=== PATIENT | female | born 1940 | race Caucasian/White ===

== ENCOUNTER 2017-03-06 10:18 | Observation (INO) | payer MEDICARE, BC ==
--- OUTSIDE RECORDS SUMMARY | 2017-03-06 10:22 | XMS REPORT | Continuity of Care Document ---
:1940 Author Organization [facility] [place] [address] Care Team Providers Name Role Phone Provider, Not In System Primary Care Provider Unavailable Source Comments This disclosure is being made pursuant to the [employer] program and maynot contain all information available regarding this patient.[facility] Active Allergies and Adverse Reactions Allergen Noted Date Severity Reactions Comments Pcn 12/19/2013 Low Rash Sulfa Antibiotics 12/19/2013 Low Rash Current Medications Be aware that medications may not be up to date as of this document. Alwaysverify current medications with the patient. Prescription Sig. Disp. Refills Start Date End Date Status atenolol (TENORMIN) Take 100 mg by Active 100 MG tablet mouth daily. Calcium Take by mouth. Active Carb-Cholecalciferol 500-200 MG-UNIT TABS escitalopram (LEXAPRO) Take 20 mg by Active 20 MG tablet mouth daily. irbesartan (AVAPRO) Take 150 mg by Active 150 MG tablet mouth nightly. Multiple Take by mouth. Active Vitamins-Minerals (ONE-A-DAY 50 PLUS PO) oxybutynin (DITROPAN) Take 5 mg by Active 5 MG tablet mouth daily. pantoprazole Take 40 mg by Active (PROTONIX) 40 MG mouth daily. tablet traZODone (DESYREL) 50 Take 150 mg by Active MG tablet mouth nightly. traZODone (DESYREL) 50 Take 50 mg by Active MG tablet mouth 2 (two) times daily. triamterene-hydrochlor Take 1 tablet by Active othiazide (MAXZIDE-25) mouth daily. 37.5-25 MG per tablet hydrOXYzine (VISTARIL) Take 1 capsule by 30 capsule 0 12/19/2013 Active 50 MG capsule mouth 3 (three) times daily as needed for Itching. Active Problems Not on file Social History Tobacco Use Types Packs/Day Years Used Date Never Smoker Smokeless Tobacco: Never Used Alcohol Use Drinks/Week oz/Week Comments No Last Filed Vital Signs Vital Sign Reading Time Taken Blood Pressure 110/84 12/19/2013 1:53 PM CDT Pulse 78 12/19/2013 1:53 PM CDT Temperature 37.2 C (99 F) 12/19/2013 1:53 PM CDT Respiratory Rate 18 12/19/2013 1:53 PM CDT Height - - Weight - - Body Mass Index - - Oxygen Saturation 95% 12/19/2013 1:53 PM CDT Plan of Care Health Maintenance Due Date Last Done Comments Tetanus/Pertussis (1 - Tdap) 1960 Mammogram 1981 Colonoscopy 1991 Well Adult Visit 1991 Zoster Vaccine 60+ 2001 Bone Density 2006 Pneumococcal Low/Medium Risk 65+ (1 of 2 - PCV13) 2006 Retired-INFLUENZA VACCINE 04/18/2016 Results from Last 3 Months Not on file Insurance Payer Benefit Plan / Group Subscriber ID Type Phone Address MEDICARE MEDICARE A AND B [id number] [phone] [address] [place] [address] LILY DALE [employer] [facility] PPO [id number] PPO [phone] STATION [id number] [place] [address] [address]: [address] [phone] [place] [id number] [employer] Personal/Family Self 1940 Home: [address] [phone] [place] [id number]
[2017-03-06 11:18] LABS: Hematocrit 44.8 % (37.0-47.0); Hemoglobin 14.9 gm/dL (12.5-16.0); Mean Cell Volume 104.2 fl (78-100); Mean Corpuscular Hemoglobin 34.7 pg (27-31); Mean Corpuscular Hgb Conc 33.3 g/dl (32-36); Mean Platelet Volume 10.2 fl (6.0-9.5); Neutrophil # 5.7 K/mm3 (1.3-6.0); Neutrophil % 62.8 % (42-75.0); Platelet Count 172 K/mm3 (150-450); Red Cell Distribution Width 12.6 % (11.5-14.0); White Blood Count 9.1 K/mm3 (4.0-10.5)
[2017-03-06 11:30] LABS: Prothrombin Time (Patient) 10.7 Seconds (9.4-11.4)
[2017-03-06 11:32] LABS: INR 1.03 INR (0.90-1.10)
[2017-03-06 11:43] LABS: ALT 24 U/L (19-67); AST 26 U/L (0-48); Albumin * 3.6 gm/dl (3.4-5.0); Alkaline Phosphatase * 63 U/L (50-170); Anion Gap 12.6 mmol/L (6.8-13.8); BNP * 222 pg/mL (5-550); BUN/Creatinine Ratio 22.7 (9.0-21.6); Bilirubin, Total 0.6 mg/dL (0.0-1.1); Blood Urea Nitrogen 17 mg/dL (3-23); Ca. Corrected For Albumin 8.8 mg/dL (8.4-10.2); Calcium * 8.8 mg/dL (7.9-10.9); Carbon Dioxide 28.5 mmol/L (24-32.6); Chloride 104 mmol/L (97-106); Glucose * 113 mg/dL (70-110); Potassium 4.1 mmol/L (3.4-4.6); Sodium 141 mmol/L (132-142); Total Protein 6.8 gm/dL (6.2-8.2); Troponin I Less than 0.017 ng/ml (0.00-0.10)
[2017-03-06 12:17] LABS: Urine Bilirubin Negative (NEGATIVE); Urine Blood Negative /ul (NEGATIVE); Urine Ketone Negative (NEGATIVE); Urine Nitrite Negative (NEGATIVE); Urine Protein Negative (NEGATIVE); Urine Specific Gravity 1.025 SP.GR. (1.005-1.010); Urine Urobilinogen Normal (NORMAL); Urine pH 5.5 pH (5.0-7.0)
[2017-03-06 12:22] LABS: Urine Appearance Clear; Urine Color Yellow
[2017-03-06 12:23] LABS: Urine Bacteria TRACE; Urine RBC None Seen /hpf (0-5); Urine WBC 0-5 /hpf (0-5)
[2017-03-06] MEDS ORDERED: ALBUTEROL SULFATE/IPRATROPIUM 3 ML NEBU IH PRN (14:08)
[2017-03-06] MEDS: LORazepam 0.5 MG TABLET PO SCH ×2 (14:47→22:22)
[2017-03-06] MEDS: GABAPENTIN 400 MG CAPSULE PO SCH ×2 (15:11→20:09)
[2017-03-06] MEDS: ALBUTEROL SULFATE 2.5 MG/3 ML VIAL.NEB IH PRN (16:41)
[2017-03-06] MEDS ORDERED: GABAPENTIN 400 MG CAPSULE PO SCH (17:00)
--- NOTE | 2017-03-06 17:23 | PN ---
Gabby Note - Interim Narrative: 03/06/17 17:16 Work up so far has been coming back WNL. Will start her on SAMPSON and breathing treatments . Will wean her off O2 per protocol. restart her antianxiety pills. Consider adding Cromolyn or ROSITA. r/o EIA vs panic attacks. per daughter she has not been going out of her house. walking to the office from the parking lot could have been an exercise for her. will schedule her a metacholine or bronchoprovocation PFT on out patient basis.
[2017-03-06] MEDS: ACETAMINOPHEN 325 MG TABLET PO PRN (20:07)
[2017-03-06] MEDS: OXYBUTYNIN CHLORIDE 5 MG TABLET PO SCH (20:09)
[2017-03-06] MEDS: LACTOBACILLUS ACIDOPHILUS 100 CAP BTL PO SCH (20:14)
[2017-03-06] MEDS ORDERED: MIRTAZAPINE 15 MG TABLET PO SCH (21:00)
[2017-03-06] MEDS ORDERED: ASPIRIN 81 MG TAB.CHEW PO SCH (21:00)
[2017-03-06] MEDS ORDERED: METOPROLOL SUCCINATE 50 MG TABLET.SA PO SCH (21:00)
--- NOTE | 2017-03-07 07:46 | DS ---
(1) Dyspnea Problem: Acute Qualifiers: (2) Low O2 saturation Problem: Acute (3) Panic disorder Problem: Acute (4) Hypertension Problem: Acute (5) Asthma Problem: Acute (6) Anxiety and depression Problem: Chronic (7) Obsessive compulsive disorder (or obsessive compulsive neurosis) Problem: Chronic (8) Urge incontinence Problem: Acute Description of Stay: Kenisha Smart, is a 76-year-old white female, with previous medical history of anxiety depression, obsessive-compulsive disorder, panic disorder, asthma, hypertension, who was admitted on 03/06/2017 for shortness of breath and low oxygen saturation. She was following up for a six-month visit in my office when patient was noted to be visibly short of breath and saturating only 84% at room air. At 2 L of oxygen via nasal cannula was applied and oxygen saturation went up to 95%. She denied any chest pains, palpitations, wheezing, orthopnea and weight gain fever, chills, coughing. Her oxygen was removed and her oxygen dropped down again to 83% and so it was reapplied and her oxygen went up to 94%. She was then admitted for observation. Workup came back esentially within normal limits. Her EKG showed normal sinus rhythm. Her chest x-ray showed no acute cardiopulmonary findings. Her d-dimer and troponin were within normal limits. Her Echo showed normal EF, trace MR/TR, RSVP of 38. ABG showed normal pH of 7.36, normal pO2 of 84.2at 2 L of O2, slightly elevated pCO2 of 47.5, O2 saturation of 95%. Her daughter says that patient has not been out of her house very often and patient did state that walking from the parking lot to the office made her short of breath . Accomplishing this activity would be like an exercise for her leading me to suspect if this could be exercise induced asthma. She does also have a history of panic attacks and she does get nervous when she goes to a doctor's visit. She sees a psychiatrist in [place] for all of her psychiatric issues. She is now saturating around 90-93% on room air and subjectively denies any shortness of breath. She is stable to be discharged. She does have a history of asthma but has never been on any inhaler before. We will discharge her with Proair for rescue breathing or before exercise. The episode could've been something similar to exercise-induced asthma versus panic attack. Because of her panic attacks, I don't think patient can be able to perform or finish a PFT more so a metacholine/bronchoprovocation challenged PFT. Will defer form scheduling it for now on an outpatient basis. Procedures Performed: none Discharge Disposition: Home self care Disposition: Home self-care Condition: Good Discharge Activity: Activity as tolerated Discharge Diet: Low salt Referrals: Katarina Cervantes MD [Primary Care Provider] - Additional Patient Instructions (free text): Follow up with on 03/26/17 at 10:45am Prescriptions (Any new or edited meds): Albuterol Sulfate [Proair Hfa] 1 - 2 puff IH Q4H PRN #1 inhaler PRN Reason: Shortness Of Breath/Wheezing Budesonide [Pulmicort Respules] 0.5 mg IH DAILY #1 vial.neb Oxybutynin Chloride [Ditropan] 5 mg PO TID #90 tablet Complete Home Medications List: Complete Home Medication List: LORazepam [Ativan] 1 mg PO QID 07/04/15 Losartan Potassium [Cozaar] 100 mg PO DAILY 07/04/15 Mirtazapine [Remeron] 7.5 mg PO HS 07/04/15 Aspirin [Philipp Chewable Aspirin] 81 mg PO HS 10/10/15 Glucosamine/D3/Boswellia [place] [Osteo Bi-Flex Caplet] 1 each PO BID 10/10/15 Metoprolol Succinate 50 mg PO HS 10/11/15 Cholecalciferol (Vitamin D3) [Vitamin D3] 2,000 unit PO DAILY 03/06/17 Escitalopram Oxalate [Lexapro] 20 mg PO DAILY 03/06/17 Gabapentin 800 mg PO TID 03/06/17 L.acidoph,Paracasei, B.lactis [Probiotic] 1 each PO 03/06/17 Acetaminophen [Tylenol] 650 mg PO QID PRN 03/07/17 Albuterol Sulfate [Proair Hfa] 1 - 2 puff IH Q4H PRN #1 inhaler 03/07/17 Budesonide [Pulmicort Respules] 0.5 mg IH DAILY #1 vial.neb 03/07/17 Oxybutynin Chloride [Ditropan] 5 mg PO TID #90 tablet 03/07/17 QUEtiapine FUMARATE [Seroquel] 200 mg PO HS 03/07/17 Seroquel 25 mg PO BID 03/07/17
[2017-03-07] MEDS ORDERED: LOSARTAN POTASSIUM 50 MG TABLET PO SCH (09:00)
[2017-03-07] MEDS ORDERED: BUDESONIDE 0.5 MG/2 ML VIAL.NEB IH SCH (09:00)
[2017-03-07] MEDS ORDERED: CHOLECALCIFEROL 1,000 UNIT CAPSULE PO SCH (09:00)
[2017-03-07] MEDS ORDERED: ESCITALOPRAM OXALATE 10 MG TAB PO SCH (09:00)
[2017-03-07] MEDS: GABAPENTIN 400 MG CAPSULE PO SCH ×2 (09:01→13:14)
[2017-03-07] MEDS: LACTOBACILLUS ACIDOPHILUS 100 CAP BTL PO SCH (09:01)
[2017-03-07] MEDS: OXYBUTYNIN CHLORIDE 5 MG TABLET PO SCH (09:02)
[2017-03-07] MEDS: ACETAMINOPHEN 325 MG TABLET PO PRN (09:07)
[2017-03-07] MEDS: LORazepam 0.5 MG TABLET PO SCH ×2 (09:07→13:14)
--- NOTE | 2017-03-07 09:11 | ECHO ---
This report is available in the EMR
[2017-03-07] MEDS: ALBUTEROL SULFATE 2.5 MG/3 ML VIAL.NEB IH PRN (09:14)
[2017-03-07 12:38] VITALS: BP 147/72
== END 2017-03-07 13:45 | disposition home or self-care (01) ==
LOC: MS 10:18
PROVIDERS: ADMIT Internal Medicine; ATTEND Internal Medicine
DX: R06.02 Shortness of breath (principal); F41.0 Panic disorder [episodic paroxysmal anxiety]; I10 Essential (primary) hypertension; J45.909 Unspecified asthma, uncomplicated; F41.8 Other specified anxiety disorders; F42.9 Obsessive-compulsive disorder, unspecified; N39.41 Urge incontinence
CPT/HCPCS: 36415; 36600; 71010; 80053; 81001; 82803; 83880; 84484; 85025; 85379; 85610; 87086; 93005; 93306; 94640; G0378; G0379

== ENCOUNTER 2017-06-13 13:15 | Emergency (ER) | payer MEDICARE, BC ==
[2017-06-13] MEDS ORDERED: LORazepam 2 MG/ML DISP.SYRIN IV ONE (13:26)
[2017-06-13] MEDS ORDERED: ALBUTEROL SULFATE 2.5 MG/0.5 ML VIAL.NEB IH ONE ×2 (13:26→13:30)
[2017-06-13] MEDS ORDERED: LORazepam 2 MG/ML DISP.SYRIN ONE (13:31)
--- NOTE | 2017-06-13 13:38 | ERNOTE ---
Dyspnea - Date Date of Service: 06/13/17 - General Presenting Symptoms: shortness of breath Time Seen by Provider: 06/13/17 13:17 Source: patient Exam Limitations: no limitations - Immun/Allergies/Home Medications Immunizations: IMMUNIZATION HX Immunizations Up to Date Yes History of Influenza Vaccine No Hx Pneumococcal Vaccination Yes Allergies/Adverse Reactions: Allergies Sulfa (Sulfonamide Antibiotics) Allergy (Mild, Verified 06/13/17 13:17) Hives eszopiclone [From Lunesta] Adverse Reaction (Mild, Verified 06/13/17 13:17) RASH Penicillins Adverse Reaction (Mild, Verified 06/13/17 13:17) RASH Home Medications: HOME MEDICATIONS LORazepam [Ativan] 1 mg PO QID 07/04/15 [Last Taken 03/06/17 08:00] Losartan Potassium [Cozaar] 100 mg PO DAILY 07/04/15 [Last Taken Unknown] Mirtazapine [Remeron] 7.5 mg PO HS 07/04/15 [Last Taken Unknown] Aspirin [Philipp Chewable Aspirin] 81 mg PO HS 10/10/15 [Last Taken Unknown] Glucosamine/D3/Boswellia [place] [Osteo Bi-Flex Caplet] 1 each PO BID 10/10/15 [ Last Taken Unknown] Metoprolol Succinate 50 mg PO HS 10/11/15 [Last Taken Unknown] Cholecalciferol (Vitamin D3) [Vitamin D3] 2,000 unit PO DAILY 03/06/17 [Last Taken Unknown] Escitalopram Oxalate [Lexapro] 20 mg PO DAILY 03/06/17 [Last Taken Unknown] Gabapentin 800 mg PO TID 03/06/17 [Last Taken Unknown] L.acidoph,Paracasei, B.lactis [Probiotic] 1 each PO 03/06/17 [Last Taken 08:00] Acetaminophen [Tylenol] 650 mg PO QID PRN 03/07/17 [Last Taken Unknown] Albuterol Sulfate [Proair Hfa] 1 - 2 puff IH Q4H PRN #1 inhaler 03/07/17 [Last Taken Unknown] Budesonide [Pulmicort Respules] 0.5 mg IH DAILY #1 vial.neb 03/07/17 [Last Taken Unknown] Oxybutynin Chloride [Ditropan] 5 mg PO TID #90 tablet 03/07/17 [Last Taken Unknown] QUEtiapine FUMARATE [Seroquel] 200 mg PO HS 03/07/17 [Last Taken Unknown] Seroquel 25 mg PO BID 03/07/17 [Last Taken Unknown] Ipratropium/Albuterol Sulfate [Combivent Respimat Inhal [place]] 1 puff IH QID #1 inhaler 06/13/17 [Last Taken Unknown] predniSONE [Prednisone] 3 tab PO DAILY #9 tab 06/13/17 [Last Taken Unknown] - History of Present Illness Narrative: Pt. comes in with c/o SOB for 48 hours and anxiety for 24 hours. Pt. denies any SOB, CP, NVD, fever, recent illness, or injury. Pt. was seen by her psychiatrist this morning who increased her ativan. Pt. called EMS to come get her and when they arrived her O2 saturation was in the high 80s. and was improved on 4LNC. Review of Systems - Review of Systems Constitutional: Present: no symptoms reported. Absent: recent illness, chills, weakness, fatigue, malaise EYE: Present: no symptoms reported ENT: Present: no symptoms reported Respiratory: Present: shortness of breath, cough, wheezing Cardiology: Present: no symptoms reported. Absent: chest pain, palpitations, edema Gastrointestinal/Abdominal: Present: no symptoms reported. Absent: nausea, vomiting, diarrhea Genitourinary: Present: no symptoms reported Musculoskeletal: Present: no symptoms reported. Absent: back pain, joint pain Skin: Present: no symptoms reported. Absent: rash, dryness, lesions, change in color Neurological: Present: anxiety. Absent: headache, dizziness/light-headedness, numbness, tingling Psych: Present: anxiety All Other Systems: All systems neg except as marked - Patient's Past Medical History Patient History - Medical: Anxiety, Depression, GERD, Obesity, Osteoarthritis Patient History - Cardiac/Respiratory: Hypertension Patient History - Cancer: No Hx of Cancer Patient History - Surgical Procedures: Appendectomy, Cholecystectomy, Total Knee Replacement, T & A Patient History - Other: None - Family History Mother Family History - Medical: , Diabetes Type 2 Insulin Dependent Family History - Cardiac/Respiratory: History Unknown, Other Family History - Cancer: No pertinent family hx Father Family History - Medical: , Dementia, Depression, Other Family History - Cardiac/Respiratory: No pertinent hx Family History - Cancer: No pertinent family hx - Social History Abuse History: No History of abuse Psych History: Hx of Anxiety Smoking Status: Never smoker - Immunizations Immunizations Up to Date: Yes Hx Pneumococcal Vaccination: Yes History of Influenza Vaccine: No Physical Exam - Physical Exam General Appearance: Present: wd/wn, alert, anxious Head Exam: Present: normal inspection, no evidence of injury Eye Exam: Normal inspection: bilateral, PERRL: bilateral, EOMI: bilateral Ears, Nose, Throat: Present: normal ENT inspection, normal pharynx Neck: Present: normal inspection, nontender. Absent: lymphadenopathy (R), lymphadenopathy (L) Respiratory: Present: no respiratory distress, no accessory muscle use, wheezing. Absent: rales, rhonchi, stridor Cardiovascular/Chest: Present: regular rate, rhythm, no murmur, normal peripheral pulses Gastrointestinal/Abdominal: Present: normal bowel sounds, nontender, nondistended, soft, no organomegaly Back Exam: Present: normal inspection Extremity Exam: Present: normal inspection, non-tender, normal range of motion, no edema Neurological Exam: Present: alert, oriented, no motor/sensory deficits Skin Exam: Present: normal color, warm/dry. Absent: pallor, skin rash ED Progress - Date and Time Seen: Date and Time: 06/13/17 15:16 Feel that pt. has COPD and needs started on an inhalers and steroid burst - Results and Orders Patient's Lab Results:: I have reviewed the patient's lab results. - Vital Signs Patient's Vital Signs:: I have reviewed the patient's vital signs. Vital Signs: Vital Signs 06/13/17 13:18 Temperature 36.6 C Pulse Rate 103 H Respiratory 22 H Rate Blood Pressure 167/64 O2 Sat by Pulse 91 Oximetry - EKG EKG: NSR EKG read: Reviewed by me EKG Comments: interp by Dr Nance - X-Ray X-Ray #1 X-Ray: chest Interpretation: Reviewed by me X-ray Comments: bronchial cuffing no consolidation - Progress/Reassessment Chief Complaint: Dyspnea Progress:: Unchanged Departure Clinical Impression: Anxiety and depression Dyspnea Qualifiers: Dyspnea type: shortness of breath Qualified Code(s): R06.02 - Shortness of breath; R06.00 - Dyspnea, unspecified; R06.01 - Orthopnea COPD (chronic obstructive pulmonary disease) Qualifiers: COPD type: unspecified COPD Qualified Code(s): J44.9 - Chronic obstructive pulmonary disease, unspecified - Departure Disposition: Home self-care Condition: Good Instructions: Chronic Obstructive Pulmonary Disease, [id number] Additional Instructions: Please follow up with primary provider in 2-3 days. Please take inhaler as scheduled. Please continue medications as ordered. Prescriptions: Ipratropium/Albuterol Sulfate [Combivent Respimat Inhal [place]] 1 puff IH QID #1 inhaler predniSONE [Prednisone] 3 tab PO DAILY #9 tab
[2017-06-13 13:43] LABS: Hematocrit 45.3 % (37.0-47.0); Hemoglobin 15.1 gm/dL (12.5-16.0); Mean Cell Volume 102.7 fl (78-100); Mean Corpuscular Hemoglobin 34.2 pg (27-31); Mean Corpuscular Hgb Conc 33.3 g/dl (32-36); Mean Platelet Volume 9.9 fl (6.0-9.5); Neutrophil % 75.6 % (42-75.0); Platelet Count 192 K/mm3 (150-450); Red Blood Count 4.41 M/mm3 (4.2-5.4); Red Cell Distribution Width 13.9 % (11.5-14.0); White Blood Count 10.6 K/mm3 (4.0-10.5)
[2017-06-13 14:01] LABS: ALT 20 U/L (19-67); AST 22 U/L (0-48); Albumin * 3.7 gm/dl (3.4-5.0); Alkaline Phosphatase * 81 U/L (50-170); Anion Gap 12.2 mmol/L (6.8-13.8); BUN/Creatinine Ratio 19.8 (9.0-21.6); Bilirubin, Total 0.4 mg/dL (0.0-1.1); Blood Urea Nitrogen 18 mg/dL (3-23); Ca. Corrected For Albumin 8.8 mg/dL (8.4-10.2); Calcium * 8.9 mg/dL (7.9-10.9); Chloride 103 mmol/L (97-106); Glucose * 148 mg/dL (70-110); Potassium 4.2 mmol/L (3.4-4.6); Sodium 140 mmol/L (132-142); Total Protein 7.2 gm/dL (6.2-8.2); Troponin I Less than 0.017 ng/ml (0.00-0.10)
[2017-06-13 15:01] LABS: Urine Bilirubin Negative (NEGATIVE); Urine Blood Negative /ul (NEGATIVE); Urine Ketone Negative (NEGATIVE); Urine Nitrite Negative (NEGATIVE); Urine Protein Negative (NEGATIVE); Urine Specific Gravity 1.025 SP.GR. (1.005-1.010); Urine Urobilinogen Normal (NORMAL); Urine pH 5.5 pH (5.0-7.0)
[2017-06-13 15:11] LABS: Urine Appearance Slightly Cloudy; Urine Bacteria 1+; Urine Color Yellow; Urine RBC None Seen /hpf (0-5); Urine WBC 0-5 /hpf (0-5)
[2017-06-13 23:01] VITALS: BP 143/62
== END 2017-06-13 15:45 | disposition home or self-care (01) ==
LOC: ER 13:15
DX: R06.02 Shortness of breath (principal); R06.00 Dyspnea, unspecified; R06.01 Orthopnea; J44.9 Chronic obstructive pulmonary disease, unspecified; F41.8 Other specified anxiety disorders; K21.9 Gastro-esophageal reflux disease without esophagitis; I10 Essential (primary) hypertension; M19.90 Unspecified osteoarthritis, unspecified site

== ENCOUNTER 2017-06-19 14:12 | Inpatient (IN) | payer MEDICARE, BC ==
[2017-06-19] MEDS ORDERED: LEVALBUTEROL HCL 0.63 MG/3 ML AMPUL IH ONE ×2 (14:31→16:01)
[2017-06-19 16:12] LABS: Hematocrit 45.7 % (37.0-47.0); Hemoglobin 15.1 gm/dL (12.5-16.0); Mean Cell Volume 102.7 fl (78-100); Mean Corpuscular Hemoglobin 33.9 pg (27-31); Mean Platelet Volume 9.8 fl (6.0-9.5); Neutrophil # 7.9 K/mm3 (1.3-6.0); Platelet Count 212 K/mm3 (150-450); Red Blood Count 4.45 M/mm3 (4.2-5.4); Red Cell Distribution Width 14.2 % (11.5-14.0); White Blood Count 11.7 K/mm3 (4.0-10.5)
[2017-06-19 16:31] LABS: Prothrombin Time (Patient) 10.1 Seconds (9.0-11.0)
[2017-06-19 16:35] LABS: Troponin I Less than 0.017 ng/ml (0.00-0.10)
[2017-06-19 16:36] LABS: INR 1.01 INR (0.90-1.10); Partial Thrombolplastin Time 23.2 Seconds (24-32)
[2017-06-19 16:37] LABS: ALT 41 U/L (19-67); AST 19 U/L (0-48); Albumin * 3.4 gm/dl (3.4-5.0); Alkaline Phosphatase * 96 U/L (50-170); Anion Gap 15.3 mmol/L (6.8-13.8); BNP * 506 pg/mL (5-550); BUN/Creatinine Ratio 23.7 (9.0-21.6); Bilirubin, Total 0.3 mg/dL (0.0-1.1); Blood Urea Nitrogen 23 mg/dL (3-23); Ca. Corrected For Albumin 8.6 mg/dL (8.4-10.2); Calcium * 8.4 mg/dL (7.9-10.9); Carbon Dioxide 27.7 mmol/L (24-32.6); Chloride 104 mmol/L (97-106); Glucose * 182 mg/dL (70-110); Sodium 143 mmol/L (132-142); Total Protein 6.6 gm/dL (6.2-8.2)
--- NOTE | 2017-06-19 17:13 | ERNOTE ---
Dyspnea - Date Date of Service: 06/19/17 - General Presenting Symptoms: shortness of breath, other - anxious Time Seen by Provider: 06/19/17 14:22 Source: patient, family - Immun/Allergies/Home Medications Immunizations: IMMUNIZATION HX Immunizations Up to Date No History of Influenza Vaccine No Hx Pneumococcal Vaccination No Allergies/Adverse Reactions: Allergies Sulfa (Sulfonamide Antibiotics) Allergy (Mild, Verified 06/13/17 13:17) Hives eszopiclone [From Lunesta] Adverse Reaction (Mild, Verified 06/13/17 13:17) RASH Penicillins Adverse Reaction (Mild, Verified 06/13/17 13:17) RASH Home Medications: HOME MEDICATIONS LORazepam [Ativan] 1 mg PO QID 07/04/15 [Last Taken 03/06/17 08:00] Losartan Potassium [Cozaar] 100 mg PO DAILY 07/04/15 [Last Taken Unknown] Mirtazapine [Remeron] 7.5 mg PO HS 07/04/15 [Last Taken Unknown] Aspirin [Philipp Chewable Aspirin] 81 mg PO HS 10/10/15 [Last Taken Unknown] Glucosamine/D3/Boswellia [place] [Osteo Bi-Flex Caplet] 1 each PO BID 10/10/15 [ Last Taken Unknown] Metoprolol Succinate 50 mg PO HS 10/11/15 [Last Taken Unknown] Cholecalciferol (Vitamin D3) [Vitamin D3] 2,000 unit PO DAILY 03/06/17 [Last Taken Unknown] Escitalopram Oxalate [Lexapro] 20 mg PO DAILY 03/06/17 [Last Taken Unknown] Gabapentin 800 mg PO TID 03/06/17 [Last Taken Unknown] L.acidoph,Paracasei, B.lactis [Probiotic] 1 each PO 03/06/17 [Last Taken 08:00] Acetaminophen [Tylenol] 650 mg PO QID PRN 03/07/17 [Last Taken Unknown] Albuterol Sulfate [Proair Hfa] 1 - 2 puff IH Q4H PRN #1 inhaler 03/07/17 [Last Taken Unknown] Budesonide [Pulmicort Respules] 0.5 mg IH DAILY #1 vial.neb 03/07/17 [Last Taken Unknown] Oxybutynin Chloride [Ditropan] 5 mg PO TID #90 tablet 03/07/17 [Last Taken Unknown] QUEtiapine FUMARATE [Seroquel] 200 mg PO HS 03/07/17 [Last Taken Unknown] Seroquel 25 mg PO BID 03/07/17 [Last Taken Unknown] Ipratropium/Albuterol Sulfate [Combivent Respimat Inhal [place]] 1 puff IH QID #1 inhaler 06/13/17 [Last Taken Unknown] predniSONE [Prednisone] 3 tab PO DAILY #9 tab 06/13/17 [Last Taken Unknown] - History of Present Illness Narrative: 76-year-old female presents to the emergency room via EMS for what she describes as increased shortness of breath at home. Patient was recently seen here the for COPD exacerbation and was sent home on steroids. Patient states that she just started on of her new COPD meds today as well. Patient's caregiver states the patient came in noncompliant with her medications and has been very anxious for the last 2 days. Date (Duration): 06/19/17 Severity: mild Treatment FIGURE MODEL: paramedics, oxygen, albuterol Initiating event: Reports: upper resp illness, other - anxiety Modifying Factors - (Improves): Reports: albuterol, oxygen Modifying Factors (Worsens): Reports: activity, lying down Associated Symptoms-Dyspnea: Reports: cough, anxiety. Denies: fever/chills, sweating, chest pain/discomfort Review of Systems - Narrative Narrative: patient given an albuterol tx by ems and O2 applied via EMS which did help with her SOB and she felt better/ patient has a history of anxiety. she stated that her daughter thought she was taking to much of her anxiety medication and decreased her dose. this made the patient anxious. during review of patients medications with her,patient states she has a a "puffer" at home but she didnt know she was supposed to do it QID as directed. - Review of Systems Constitutional: Present: See HPI EYE: Present: no symptoms reported ENT: Present: no symptoms reported Respiratory: Present: See HPI, shortness of breath Cardiology: Present: no symptoms reported Gastrointestinal/Abdominal: Present: no symptoms reported Genitourinary: Present: no symptoms reported Musculoskeletal: Present: no symptoms reported Skin: Present: no symptoms reported Neurological: Present: no symptoms reported Endocrine: Present: no symptoms reported Hematologic/Lymphatic: Present: no symptoms reported Psych: Present: no symptoms reported All Other Systems: All systems neg except as marked - Patient's Past Medical History Patient History - Medical: Anxiety, Depression, GERD, Obesity, Osteoarthritis Patient History - Cardiac/Respiratory: Bronchitis, COPD, Hypertension Patient History - Cancer: No Hx of Cancer Patient History - Surgical Procedures: Appendectomy, Cholecystectomy, Total Knee Replacement, T & A Patient History - Other: None - Family History Mother Family History - Medical: , Diabetes Type 2 Insulin Dependent Family History - Cardiac/Respiratory: History Unknown, Other Family History - Cancer: No pertinent family hx Father Family History - Medical: , Dementia, Depression, Other Family History - Cardiac/Respiratory: No pertinent hx Family History - Cancer: No pertinent family hx - Social History Living Situations: home Abuse History: No History of abuse Psych History: Hx of Anxiety, Hx of Depression Smoking Status: Never smoker Have you smoked in the past 12 months: No Do you dip or chew tobacco: No Alcohol Use: none Drug Use: none - Immunizations Immunizations Up to Date: No Hx Pneumococcal Vaccination: No History of Influenza Vaccine: No Physical Exam - Physical Exam Narrative: patient appears anxious. lung sounds diminished at bases. patient req 02 at 2l. General Appearance: Present: wd/wn, alert, no apparent distress, anxious Head Exam: Present: normal inspection, no evidence of injury Eye Exam: Normal inspection: bilateral, PERRL: bilateral, EOMI: bilateral Ears, Nose, Throat: Present: normal ENT inspection, normal pharynx Neck: Present: normal inspection, nontender, supple, full range of motion Respiratory: Present: no respiratory distress, no accessory muscle use, chest nontender, decreased breath sounds Cardiovascular/Chest: Present: regular rate, rhythm, no murmur, normal peripheral pulses Gastrointestinal/Abdominal: Present: normal bowel sounds, nontender, nondistended, soft, no organomegaly Rectal Exam: Present: deferred Back Exam: Present: normal inspection, normal range of motion, no CVA tenderness , no vertebral tenderness Extremity Exam: Present: normal inspection, normal range of motion, pedal edema Neurological Exam: Present: alert, oriented, normal mood/affect, no motor/ sensory deficits. Absent: facial droop Skin Exam: Present: normal color, warm/dry Lymphatic Exam: Present: no adenopathy ED Progress - Results and Orders Patient's Lab Results:: I have reviewed the patient's lab results. - Vital Signs Patient's Vital Signs:: I have reviewed the patient's vital signs. Vital Signs: Vital Signs 06/19/17 06/19/17 06/19/17 14:14 15:56 16:02 Temperature 36.4 C L 35.7 C L Pulse Rate 89 85 79 Respiratory 20 28 H 22 H Rate Blood Pressure 159/74 150/122 O2 Sat by Pulse 93 92 92 Oximetry - EKG EKG: NSR EKG read: Reviewed by me - X-Ray X-Ray #1 X-Ray: chest Interpretation: Reviewed by me X-ray Comments: Patient Patient Name:ABI DOVER V Date: 1940 Sex: F Order Number: [id number] Unique Exam ID: [id number] Exam Requested: CXRPALAT - Chest PA Lateral * Date Scheduled: 06-19-2017 04:42 PM Study Priority: Requesting Service: Requesting Physician: Markell Smith Reason for Exam: SOB/COPD Radiological Report : [place] [address] NAME: ABI DOVER V : 1940 MR #: [id number] CC: Markell DESAI LOC: [place] ADM DATE: 06/19/17 X-RAY REPORT [id number] RAD/Chest PA Lateral * Exam Date: 06/19/2017 16:42 Ordering Physician: Markell Smith History: Shortness of breath for one week. History of COPD. Technique: PA and lateral views of the chest are compared to prior dated June 13, 2017. Findings: Diffuse hyperinflation of the lungs bilaterally with flattening of the hemidiaphragm. Scattered calcified granulomas. The lungs are clear bilaterally. There is no consolidation, pleural effusion or pneumothorax. Cardiac silhouette and pulmonary vasculature are normal. The osseous structures demonstrate degenerative changes of the spine and shoulders. IMPRESSION: NO ACUTE CARDIOPULMONARY ABNORMALITY IDENTIFIED. Electronically signed by Lotus Zhao D.O.. Lotus Zhao DO Dict: 06/19/[id number] Typed: [id number]/[id number]/ 06/19/[id number]/19/17 1711 , Approved by: LOTUS ZHAO Approval Date: 06-19-2017 Approval Time: 05:08 PM THIS REPORT WAS RECEIVED FROM THE [facility] - Progress/Reassessment Chief Complaint: Dyspnea Progress:: Improved Plan - Plan Plan: attempted to wean 02. patient unable to maintain a SP02 over 88% with out oxygen support. patients new oxygen requirement was reported to admitting attending which is patients PCP. he agreed to admit patient for out patient treatment failure for Acute COPD exacerbation. patient and her family agree to transfer. i feel patient would benefit from medication reminders or home health for medication set up. i spoke with physician and floor nurse about these concerns and the need for them to be addressed. i also let patients family know of this request. Departure Clinical Impression: Low O2 saturation COPD (chronic obstructive pulmonary disease) Qualifiers: COPD type: COPD with acute exacerbation Qualified Code(s): J44.1 - Chronic obstructive pulmonary disease with (acute) exacerbation - Departure Disposition: [facility] Condition: Stable
[2017-06-19] MEDS ORDERED: FLU VACC QS2017-18(6MOS UP)/PF 60 MCG/0.5 ML SYRINGE IM ONE (17:43)
--- NOTE | 2017-06-19 19:42 | HP ---
<Bone,Markell - Last Filed: 06/19/17 19:54> Immunizations: IMMUNIZATION HX Immunizations Up to Date No History of Influenza Vaccine No Hx Pneumococcal Vaccination No Allergies/Adverse Reactions: Allergies Allergy/AdvReac Type Severity Reaction Status Date / Time Sulfa (Sulfonamide Allergy Mild Hives Verified 06/19/17 17:29 Antibiotics) eszopiclone [From Lunesta] AdvReac Mild RASH Verified 06/19/17 17:29 Penicillins AdvReac Mild RASH Verified 06/19/17 17:29 Home Medications: HOME MEDICATIONS LORazepam [Ativan] 1 mg PO QID 07/04/15 [Last Taken 03/06/17 08:00] Losartan Potassium [Cozaar] 100 mg PO DAILY 07/04/15 [Last Taken Unknown] Mirtazapine [Remeron] 7.5 mg PO HS 07/04/15 [Last Taken Unknown] Aspirin [Philipp Chewable Aspirin] 81 mg PO HS 10/10/15 [Last Taken Unknown] Glucosamine/D3/Boswellia [place] [Osteo Bi-Flex Caplet] 1 each PO BID 10/10/15 [ Last Taken Unknown] Metoprolol Succinate 50 mg PO HS 10/11/15 [Last Taken Unknown] Cholecalciferol (Vitamin D3) [Vitamin D3] 2,000 unit PO DAILY 03/06/17 [Last Taken Unknown] Escitalopram Oxalate [Lexapro] 20 mg PO DAILY 03/06/17 [Last Taken Unknown] Gabapentin 800 mg PO TID 03/06/17 [Last Taken Unknown] L.acidoph,Paracasei, B.lactis [Probiotic] 1 each PO 03/06/17 [Last Taken 08:00] Acetaminophen [Tylenol] 650 mg PO QID PRN 03/07/17 [Last Taken Unknown] Albuterol Sulfate [Proair Hfa] 1 - 2 puff IH Q4H PRN #1 inhaler 03/07/17 [Last Taken Unknown] Budesonide [Pulmicort Respules] 0.5 mg IH DAILY #1 vial.neb 03/07/17 [Last Taken Unknown] Oxybutynin Chloride [Ditropan] 5 mg PO TID #90 tablet 03/07/17 [Last Taken Unknown] QUEtiapine FUMARATE [Seroquel] 200 mg PO HS 03/07/17 [Last Taken Unknown] Seroquel 25 mg PO BID 03/07/17 [Last Taken Unknown] Ipratropium/Albuterol Sulfate [Combivent Respimat Inhal [place]] 1 puff IH QID #1 inhaler 06/13/17 [Last Taken Unknown] predniSONE [Prednisone] 3 tab PO DAILY #9 tab 06/13/17 [Last Taken Unknown] Exam - Exam Vital Signs: Vital Signs - Last Taken Temp 36.8 C 06/19/17 16:58 Pulse 80 06/19/17 16:58 Resp 16 06/19/17 16:58 BP 132/44 06/19/17 16:58 Pulse Ox 95 06/19/17 16:58 Diagnostic Studies: Laboratory Results WBC 11.7 K/mm3 (4.0-10.5) H 06/19/17 16:00 RBC 4.45 M/mm3 (4.2-5.4) 06/19/17 16:00 Hgb 15.1 gm/dL (12.5-16.0) 06/19/17 16:00 Hct 45.7 % (37.0-47.0) 06/19/17 16:00 MCV 102.7 fl (78-100) H 06/19/17 16:00 MCH 33.9 pg (27-31) H 06/19/17 16:00 MCHC 33.0 g/dl (32-36) 06/19/17 16:00 RDW 14.2 % (11.5-14.0) H 06/19/17 16:00 Plt Count 212 K/mm3 (150-450) 06/19/17 16:00 MPV 9.8 fl (6.0-9.5) H 06/19/17 16:00 Immature Gran % (Auto) 0.60 % (0.001-0.429) H 06/19/17 16:00 Immature Gran # (Auto) 0.07 K/mm3 (0.000-0.0310) H 06/19/17 16:00 Neutrophils % 68.0 % (42-75.0) 06/19/17 16:00 Lymphocytes % 22.5 % (20-51) 06/19/17 16:00 Monocytes % 6.1 % (0.0-9) 06/19/17 16:00 Eosinophils % 2.5 % (0.0-3.0) 06/19/17 16:00 Basophils % 0.3 % (0.0-1.0) 06/19/17 16:00 Nucleated RBC % 0.0 k/mm3 (0-1) 06/19/17 16:00 Neutrophils # 7.9 K/mm3 (1.3-6.0) H 06/19/17 16:00 Lymphocytes # 2.6 k/mm3 (1.5-3.5) 06/19/17 16:00 Monocytes # 0.7 k/mm3 (0.0-1.0) 06/19/17 16:00 Eosinophils # 0.3 k/mm3 (0.0-0.7) 06/19/17 16:00 Absolute Basophils 0.0 k/mm3 (0.0-0.1) 06/19/17 16:00 PT 10.1 Seconds (9.0-11.0) 06/19/17 16:00 INR (Anticoag Therapy) 1.01 INR (0.90-1.10) 06/19/17 16:00 PTT ([place]) 23.2 Seconds (24-32) L 06/19/17 16:00 Sodium 143 mmol/L (132-142) H 06/19/17 16:00 Plasma Sodium 144 mmol/L (130-142) H 06/19/17 16:00 Potassium 4.0 mmol/L (3.4-4.6) 06/19/17 16:00 Chloride 104 mmol/L (97-106) 06/19/17 16:00 Carbon Dioxide 27.7 mmol/L (24-32.6) 06/19/17 16:00 Anion Gap 15.3 mmol/L (6.8-13.8) H 06/19/17 16:00 BUN 23 mg/dL (3-23) 06/19/17 16:00 Creatinine 0.97 mg/dL (0.4-1.4) 06/19/17 16:00 Est GFR (Non-Af Amer) 60 mL/min (60-130) 06/19/17 16:00 BUN/Creatinine Ratio 23.7 (9.0-21.6) H 06/19/17 16:00 Random Glucose 182 mg/dL (70-110) H 06/19/17 16:00 Calcium 8.4 mg/dL (7.9-10.9) 06/19/17 16:00 Calcium Adj for Albumin 8.6 mg/dL (8.4-10.2) 06/19/17 16:00 Total Bilirubin 0.3 mg/dL (0.0-1.1) 06/19/17 16:00 AST 19 U/L (0-48) 06/19/17 16:00 ALT 41 U/L (19-67) 06/19/17 16:00 Alkaline Phosphatase 96 U/L (50-170) 06/19/17 16:00 Troponin I Less than 0.017 ng/ml (0.00-0.10) 06/19/17 16:00 B-Natriuretic Peptide 506 pg/mL (5-550) 06/19/17 16:00 Total Protein 6.6 gm/dL (6.2-8.2) 06/19/17 16:00 Albumin 3.4 gm/dl (3.4-5.0) 06/19/17 16:00 Narrative - Vitals Vitals: Vital Signs - Last Taken Temp 36.8 C 06/19/17 16:58 Pulse 80 06/19/17 16:58 Resp 16 06/19/17 16:58 BP 132/44 06/19/17 16:58 Pulse Ox 95 06/19/17 16:58 - ER Record Narrative Report: per EMS patient has a SPO2 of 82% upon arrival. Patient arrived on 2L NC spo2 92 %. while speaking with patient i attempted to wean her oxygen. Patient was unable to tolerate wean. while 02 was turned off patient spo2 Dropped to 85 percent on RA and she stated she felt SOB. I attempted this again after her second breathing treatment with the dame results. patient was not tolerating O2 wean and was requiring 2LNC to maintain a Sp02 of 92% <Aby Linares - Last Filed: 06/19/17 20:08> Chief Complaint - Chief Complaint Date of Service: 06/19/17 Time of Service: 19:39 Chief Complaint: "Worsening SOB". Source of HPI- Pt; reliable, ERP notes. - Patient's Past Medical History Patient History - Medical: Anxiety, Depression, GERD, Obesity, Osteoarthritis Patient History - Cardiac/Respiratory: Bronchitis, COPD, Hypertension Patient History - Cancer: No Hx of Cancer Patient History - Surgical Procedures: Appendectomy, Cholecystectomy, Total Knee Replacement, T & A Patient History - Other: None LMP (females 10-50): Menopausal - Family History Mother Family History - Medical: , Diabetes Type 2 Insulin Dependent Family History - Cardiac/Respiratory: History Unknown, Other Family History - Cancer: No pertinent family hx Father Family History - Medical: , Dementia, Depression, Other Family History - Cardiac/Respiratory: No pertinent hx Family History - Cancer: No pertinent family hx - Social History Living Situations: home Abuse History: No History of abuse Psych History: Hx of Anxiety, Hx of Depression Smoking Status: Never smoker Have you smoked in the past 12 months: No Do you dip or chew tobacco: No Alcohol Use: none Drug Use: none - Immunizations Immunizations Up to Date: No Hx Pneumococcal Vaccination: No History of Influenza Vaccine: No Review Of Systems (GEN) - Review of Systems Generalized/Overall Review: Absent: Weakness, Chills, Fever, Diaphoresis, Weight gain EENTM: Absent: Eye Pain, Blurred Vision, Tearing, Ear Pain, Nose Congestion Respiratory: Present: Cough, Shortness of Breath, Wheezing. Absent: Orthopnea Cardiac: Absent: Chest Pain, Edema, Palpitations, Syncope Abdominal: Absent: Nausea, Vomiting, Hematemesis, Abdominal Pain, Constipation, Bright blood from rectum Genitourinary: Absent: Burning, Itching, Urgency, Frequency, Hematuria Musculoskeletal: Absent: Joint Pain, Back Pain, Joint Swelling Neurological: Absent: Headache, Anxiety, Depressed, Weakness Skin: Absent: Dryness, Lesions, Bruising Endocrine: Absent: Increased Hunger, Flushing, Increased Thirst Immunizations: IMMUNIZATION HX Immunizations Up to Date No History of Influenza Vaccine No Hx Pneumococcal Vaccination No Exam - Exam Vital Signs: Vital Signs - Last Taken Temp 36.8 C 06/19/17 16:58 Pulse 80 06/19/17 16:58 Resp 16 06/19/17 16:58 BP 132/44 06/19/17 16:58 Pulse Ox 95 06/19/17 16:58 Constitutional: Present: Alert, Oriented x3, Cooperative, No distress ENT Exam: Present: normal ENT inspection. Absent: nasal congestion, nasal drainage Eye Exam: bilateral eye: normal inspection, PERRL Neck: Present: non-tender, full range of motion, supple Back Exam: Present: normal inspection, no CVA tenderness Breasts: Present: Exam deferred Respiratory: Present: decreased breath sounds, wheezing, expiration (prolonged) Cardiovascular/Chest: Present: normal peripheral pulses, regular rate, rhythm, no murmur Abdomen: Present: Normal bowel sounds, soft, nontender, obese /Rectal: Present: Exam deferred Extremity: Present: non-tender, normal inspection, no pedal edema Skin Exam: Present: warm/dry, no cyanosis Lymphatic: Present: no adenopathy Neurologic: Present: no motor/sensory deficits, alert, normal mood/affect, oriented x 3 Appearance: Present: appropriate appearance, appropriate insight Eye contact: Present: cooperative, good eye contact, normal speech Thoughts: Present: normal thought pattern, no apparent hallucination Diagnostic Studies: Laboratory Results WBC 11.7 K/mm3 (4.0-10.5) H 06/19/17 16:00 RBC 4.45 M/mm3 (4.2-5.4) 06/19/17 16:00 Hgb 15.1 gm/dL (12.5-16.0) 06/19/17 16:00 Hct 45.7 % (37.0-47.0) 06/19/17 16:00 MCV 102.7 fl (78-100) H 06/19/17 16:00 MCH 33.9 pg (27-31) H 06/19/17 16:00 MCHC 33.0 g/dl (32-36) 06/19/17 16:00 RDW 14.2 % (11.5-14.0) H 06/19/17 16:00 Plt Count 212 K/mm3 (150-450) 06/19/17 16:00 MPV 9.8 fl (6.0-9.5) H 06/19/17 16:00 Immature Gran % (Auto) 0.60 % (0.001-0.429) H 06/19/17 16:00 Immature Gran # (Auto) 0.07 K/mm3 (0.000-0.0310) H 06/19/17 16:00 Neutrophils % 68.0 % (42-75.0) 06/19/17 16:00 Lymphocytes % 22.5 % (20-51) 06/19/17 16:00 Monocytes % 6.1 % (0.0-9) 06/19/17 16:00 Eosinophils % 2.5 % (0.0-3.0) 06/19/17 16:00 Basophils % 0.3 % (0.0-1.0) 06/19/17 16:00 Nucleated RBC % 0.0 k/mm3 (0-1) 06/19/17 16:00 Neutrophils # 7.9 K/mm3 (1.3-6.0) H 06/19/17 16:00 Lymphocytes # 2.6 k/mm3 (1.5-3.5) 06/19/17 16:00 Monocytes # 0.7 k/mm3 (0.0-1.0) 06/19/17 16:00 Eosinophils # 0.3 k/mm3 (0.0-0.7) 06/19/17 16:00 Absolute Basophils 0.0 k/mm3 (0.0-0.1) 06/19/17 16:00 PT 10.1 Seconds (9.0-11.0) 06/19/17 16:00 INR (Anticoag Therapy) 1.01 INR (0.90-1.10) 06/19/17 16:00 PTT ([place]) 23.2 Seconds (24-32) L 06/19/17 16:00 Sodium 143 mmol/L (132-142) H 06/19/17 16:00 Plasma Sodium 144 mmol/L (130-142) H 06/19/17 16:00 Potassium 4.0 mmol/L (3.4-4.6) 06/19/17 16:00 Chloride 104 mmol/L (97-106) 06/19/17 16:00 Carbon Dioxide 27.7 mmol/L (24-32.6) 06/19/17 16:00 Anion Gap 15.3 mmol/L (6.8-13.8) H 06/19/17 16:00 BUN 23 mg/dL (3-23) 06/19/17 16:00 Creatinine 0.97 mg/dL (0.4-1.4) 06/19/17 16:00 Est GFR (Non-Af Amer) 60 mL/min (60-130) 06/19/17 16:00 BUN/Creatinine Ratio 23.7 (9.0-21.6) H 06/19/17 16:00 Random Glucose 182 mg/dL (70-110) H 06/19/17 16:00 Calcium 8.4 mg/dL (7.9-10.9) 06/19/17 16:00 Calcium Adj for Albumin 8.6 mg/dL (8.4-10.2) 06/19/17 16:00 Total Bilirubin 0.3 mg/dL (0.0-1.1) 06/19/17 16:00 AST 19 U/L (0-48) 06/19/17 16:00 ALT 41 U/L (19-67) 06/19/17 16:00 Alkaline Phosphatase 96 U/L (50-170) 06/19/17 16:00 Troponin I Less than 0.017 ng/ml (0.00-0.10) 06/19/17 16:00 B-Natriuretic Peptide 506 pg/mL (5-550) 06/19/17 16:00 Total Protein 6.6 gm/dL (6.2-8.2) 06/19/17 16:00 Albumin 3.4 gm/dl (3.4-5.0) 06/19/17 16:00
--- NOTE | 2017-06-19 20:27 | HP ---
Chief Complaint - Chief Complaint Date of Service: 06/19/17 Time of Service: 20:23 Chief Complaint: " Worsening SOB". Source of HPI- Pt; reliable, ERP report. History of Present Illness: Ms. Smart is a 76-yr-old [place] pt of Dr. Katarina Cervantes with a PMH of: Anxiety, Asthma, Depression, GERD, HTN, OCD & Osteoarthritis. Pt states that she came to the [facility] ER about 5 days ago for SOB. She was discharged on Duonebs and a short course of Oral Prednisone. She took the medication as advised, but states that her dyspnea never improved. She reports feeling dyspneic even at rest and has had increased non- productive coughing.Today, she called the EMS, who found her POX to be 82% on RA and 2 L of O2 by NC was applied. She denies the associated symptoms of fevers, chills, chest pain, diaphoresis & nasal congrestion/drainage. At the ED, she received breathing treatments which did not give much relief and was tachypneic. She also desaturated to mid 80s when attempts were made to wean off oxygen. The CXR did not have any acute cardiopulmonary findings. Labwork was mostly unremarkable. Due to pt's change in baseline dyspnea and coughing, and failure to respond to initial medical management of exacerbation on an outpatient basis, she will require to be admitted inpatient. - Patient's Past Medical History Patient History - Medical: Anxiety, Depression, GERD, Obesity, Osteoarthritis Patient History - Cardiac/Respiratory: Bronchitis, COPD, Hypertension Patient History - Cancer: No Hx of Cancer Patient History - Surgical Procedures: Appendectomy, Cholecystectomy, Total Knee Replacement, T & A Patient History - Other: None LMP (females 10-50): Menopausal - Family History Mother Family History - Medical: , Diabetes Type 2 Insulin Dependent Family History - Cardiac/Respiratory: History Unknown, Other Family History - Cancer: No pertinent family hx Father Family History - Medical: , Dementia, Depression, Other Family History - Cardiac/Respiratory: No pertinent hx Family History - Cancer: No pertinent family hx - Social History Living Situations: home Abuse History: No History of abuse Psych History: Hx of Anxiety, Hx of Depression Smoking Status: Never smoker Have you smoked in the past 12 months: No Do you dip or chew tobacco: No Alcohol Use: none Drug Use: none - Immunizations Immunizations Up to Date: No Hx Pneumococcal Vaccination: No History of Influenza Vaccine: No Review Of Systems (GEN) - Review of Systems Generalized/Overall Review: Present: Weakness. Absent: Chills, Fever, Malaise, Fatigue, Weight gain EENTM: Absent: Blurred Vision, Nose Pain, Nose Congestion, Throat Pain Respiratory: Present: Cough, Shortness of Breath, Wheezing Cardiac: Absent: Chest Pain, Edema, Palpitations Abdominal: Absent: Nausea, Vomiting, Hematemesis, Abdominal Pain, Constipation Genitourinary: Absent: Burning, Itching, Urgency, Frequency, Dribbling, Incontinent Musculoskeletal: Absent: Joint Pain, Back Pain, Joint Swelling Neurological: Present: Weakness. Absent: Headache, Anxiety, Depressed, Emotional Problems Skin: Absent: Dryness Endocrine: Present: Intolerance to Heat. Absent: Intolerance to Cold, Excessive Sweating, Flushing, Increased Thirst Misc: All systems neg except as marked Immunizations: IMMUNIZATION HX Immunizations Up to Date No History of Influenza Vaccine No Hx Pneumococcal Vaccination No Allergies/Adverse Reactions: Allergies Allergy/AdvReac Type Severity Reaction Status Date / Time Sulfa (Sulfonamide Allergy Mild Hives Verified 06/19/17 17:29 Antibiotics) eszopiclone [From Lunesta] AdvReac Mild RASH Verified 06/19/17 17:29 Penicillins AdvReac Mild RASH Verified 06/19/17 17:29 Home Medications: HOME MEDICATIONS LORazepam [Ativan] 1.5 mg PO TID 07/04/15 [Last Taken 03/06/17 08:00] Losartan Potassium [Cozaar] 100 mg PO DAILY 07/04/15 [Last Taken Unknown] Mirtazapine [Remeron] 30 mg PO HS 07/04/15 [Last Taken Unknown] Aspirin [Philipp Chewable Aspirin] 81 mg PO HS 10/10/15 [Last Taken Unknown] Glucosamine/D3/Boswellia [place] [Osteo Bi-Flex Caplet] 1 each PO BID 10/10/15 [ Last Taken Unknown] Metoprolol Succinate 100 mg PO HS 10/11/15 [Last Taken Unknown] Cholecalciferol (Vitamin D3) [Vitamin D3] 2,000 unit PO DAILY 03/06/17 [Last Taken Unknown] Escitalopram Oxalate [Lexapro] 20 mg PO DAILY 03/06/17 [Last Taken Unknown] Gabapentin 800 mg PO TID 03/06/17 [Last Taken Unknown] L.acidoph,Paracasei, B.lactis [Probiotic] 1 each PO DAILY 03/06/17 [Last Taken 03/06/17 08:00] Oxybutynin Chloride [Ditropan] 5 mg PO TID #90 tablet 03/07/17 [Last Taken Unknown] Benztropine Mesylate [Cogentin] 0.5 mg PO BID 06/19/17 [Last Taken Unknown] Valbenazine Tosylate [Ingrezza] 80 mg PO DAILY 06/19/17 [Last Taken Unknown] Exam - Exam Vital Signs: Vital Signs - Last Taken Temp 36.8 C 06/19/17 16:58 Pulse 80 06/19/17 16:58 Resp 16 06/19/17 16:58 BP 132/44 06/19/17 16:58 Pulse Ox 95 06/19/17 16:58 Constitutional: Present: Alert, Oriented x3, Cooperative, No distress ENT Exam: Present: normal ENT inspection, dry mucous membranes. Absent: nasal drainage, pharyngeal erythema Eye Exam: bilateral eye: normal inspection, PERRL Neck: Present: non-tender, full range of motion, supple Back Exam: Present: normal inspection Breasts: Present: Exam deferred Respiratory: Present: decreased breath sounds, wheezing, expiration (prolonged) Cardiovascular/Chest: Present: normal peripheral pulses, regular rate, rhythm, no chest tenderness, no edema Abdomen: Present: Normal bowel sounds, soft, nontender, nondistended /Rectal: Present: Exam deferred Extremity: Present: normal range of motion, non-tender, normal inspection Skin Exam: Present: warm/dry, no cyanosis Lymphatic: Present: no adenopathy Neurologic: Present: alert, normal mood/affect, oriented x 3 Appearance: Present: appropriate appearance, appropriate insight Eye contact: Present: cooperative, good eye contact, normal speech Thoughts: Present: no apparent hallucination Diagnostic Studies: Laboratory Results WBC 11.7 K/mm3 (4.0-10.5) H 06/19/17 16:00 RBC 4.45 M/mm3 (4.2-5.4) 06/19/17 16:00 Hgb 15.1 gm/dL (12.5-16.0) 06/19/17 16:00 Hct 45.7 % (37.0-47.0) 06/19/17 16:00 MCV 102.7 fl (78-100) H 06/19/17 16:00 MCH 33.9 pg (27-31) H 06/19/17 16:00 MCHC 33.0 g/dl (32-36) 06/19/17 16:00 RDW 14.2 % (11.5-14.0) H 06/19/17 16:00 Plt Count 212 K/mm3 (150-450) 06/19/17 16:00 MPV 9.8 fl (6.0-9.5) H 06/19/17 16:00 Immature Gran % (Auto) 0.60 % (0.001-0.429) H 06/19/17 16:00 Immature Gran # (Auto) 0.07 K/mm3 (0.000-0.0310) H 06/19/17 16:00 Neutrophils % 68.0 % (42-75.0) 06/19/17 16:00 Lymphocytes % 22.5 % (20-51) 06/19/17 16:00 Monocytes % 6.1 % (0.0-9) 06/19/17 16:00 Eosinophils % 2.5 % (0.0-3.0) 06/19/17 16:00 Basophils % 0.3 % (0.0-1.0) 06/19/17 16:00 Nucleated RBC % 0.0 k/mm3 (0-1) 06/19/17 16:00 Neutrophils # 7.9 K/mm3 (1.3-6.0) H 06/19/17 16:00 Lymphocytes # 2.6 k/mm3 (1.5-3.5) 06/19/17 16:00 Monocytes # 0.7 k/mm3 (0.0-1.0) 06/19/17 16:00 Eosinophils # 0.3 k/mm3 (0.0-0.7) 06/19/17 16:00 Absolute Basophils 0.0 k/mm3 (0.0-0.1) 06/19/17 16:00 PT 10.1 Seconds (9.0-11.0) 06/19/17 16:00 INR (Anticoag Therapy) 1.01 INR (0.90-1.10) 06/19/17 16:00 PTT ([place]) 23.2 Seconds (24-32) L 06/19/17 16:00 Sodium 143 mmol/L (132-142) H 06/19/17 16:00 Plasma Sodium 144 mmol/L (130-142) H 06/19/17 16:00 Potassium 4.0 mmol/L (3.4-4.6) 06/19/17 16:00 Chloride 104 mmol/L (97-106) 06/19/17 16:00 Carbon Dioxide 27.7 mmol/L (24-32.6) 06/19/17 16:00 Anion Gap 15.3 mmol/L (6.8-13.8) H 06/19/17 16:00 BUN 23 mg/dL (3-23) 06/19/17 16:00 Creatinine 0.97 mg/dL (0.4-1.4) 06/19/17 16:00 Est GFR (Non-Af Amer) 60 mL/min (60-130) 06/19/17 16:00 BUN/Creatinine Ratio 23.7 (9.0-21.6) H 06/19/17 16:00 Random Glucose 182 mg/dL (70-110) H 06/19/17 16:00 Calcium 8.4 mg/dL (7.9-10.9) 06/19/17 16:00 Calcium Adj for Albumin 8.6 mg/dL (8.4-10.2) 06/19/17 16:00 Total Bilirubin 0.3 mg/dL (0.0-1.1) 06/19/17 16:00 AST 19 U/L (0-48) 06/19/17 16:00 ALT 41 U/L (19-67) 06/19/17 16:00 Alkaline Phosphatase 96 U/L (50-170) 06/19/17 16:00 Troponin I Less than 0.017 ng/ml (0.00-0.10) 06/19/17 16:00 B-Natriuretic Peptide 506 pg/mL (5-550) 06/19/17 16:00 Total Protein 6.6 gm/dL (6.2-8.2) 06/19/17 16:00 Albumin 3.4 gm/dl (3.4-5.0) 06/19/17 16:00 Assessment/Plan - Assessment/Plan (1) COPD exacerbation Assessment: Pt reported increasing dyspnea and coughing that was outside normal day-to-day variation and she did not respond to outpatient treatment. Will give scheduled Duonebd treatments, IV solumedrol, and will start IV antibiotics (Azithromycin and Rocephin) to prevent the exacerbation progression into Pneumonia given her comorbidites and age. Will attempt to wean off oxygen once she makes progress with SOB. Problem: Acute (2) Hypertension Assessment: Stable- On Coozar & Metoprolol. Problem: Chronic Qualifiers: Hypertension type: essential hypertension Qualified Code(s): I10 - Essential (primary) hypertension (3) Failure of outpatient treatment Assessment: As outlined above- Anticipated LOS 2-3 days. Problem: Acute (4) GERD (gastroesophageal reflux disease) Problem: Chronic (5) Asthma Assessment: Will add prn Albuterol for SOB/Wheezing. Problem: Chronic (6) Depression Assessment: Stable- Continue Lexapro. Problem: Chronic (7) Anxiety Problem: Chronic (8) Urinary incontinence Assessment: Stable - On Oxybutynin. Problem: Chronic (9) Neuroleptic-induced tardive dyskinesia Assessment: On Ingrezza. Problem: Chronic
[2017-06-19] MEDS: ALBUTEROL SULFATE/IPRATROPIUM 3 ML NEBU IH SCH ×2 (20:44→23:19)
[2017-06-19] MEDS: METHYLPREDNISOLONE SOD SUCC 80 MG in WATER FOR INJ.,BACTERIOSTATIC 0 ML IV SCH (21:06)
[2017-06-19] MEDS: HEPARIN SODIUM,PORCINE 5,000 UNITS/ML VIAL SC SCH (21:06)
[2017-06-19 21:11] LABS: Urine Bilirubin Negative (NEGATIVE); Urine Blood Negative /ul (NEGATIVE); Urine Ketone Negative (NEGATIVE); Urine Nitrite Negative (NEGATIVE); Urine Protein Negative (NEGATIVE); Urine Specific Gravity 1.025 SP.GR. (1.005-1.010); Urine Urobilinogen Normal (NORMAL)
[2017-06-19] MEDS ORDERED: ALBUTEROL SULFATE 2.5 MG/0.5 ML VIAL.NEB IH PRN (21:18)
[2017-06-19 21:29] LABS: Urine Appearance Clear; Urine Bacteria 4+; Urine Color Yellow; Urine Mucus Few - 1+; Urine RBC None Seen /hpf (0-5)
[2017-06-19] MEDS ORDERED: METOPROLOL SUCCINATE 50 MG TABLET.SA PO ONE (21:41)
[2017-06-19] MEDS: LORazepam 0.5 MG TABLET PO SCH (21:43)
[2017-06-19] MEDS: MIRTAZAPINE 15 MG TABLET PO SCH (21:44)
[2017-06-19] MEDS: OXYBUTYNIN CHLORIDE 5 MG TABLET PO SCH (21:44)
[2017-06-19] MEDS: AZITHROMYCIN 500 MG in DEXTROSE 5 % IN WATER 250 ML IV SCH ×2 (21:45)
[2017-06-19] MEDS: GABAPENTIN 400 MG CAPSULE PO SCH (21:45)
[2017-06-19] MEDS: ASPIRIN 81 MG TAB.CHEW PO SCH (21:46)
[2017-06-19] MEDS ORDERED: BENZTROPINE MESYLATE 0.5 MG TABLET PO SCH (22:00)
[2017-06-19] MEDS ORDERED: METOPROLOL SUCCINATE 25 MG TABLET.SA PO SCH (22:00)
[2017-06-19] MEDS: NYSTATIN 30 APPL TUBE TP SCH (22:32)
[2017-06-19 22:40] LABS: Urine Bilirubin Negative (NEGATIVE); Urine Blood Negative /ul (NEGATIVE); Urine Ketone Negative (NEGATIVE); Urine Nitrite Negative (NEGATIVE); Urine Protein Negative (NEGATIVE); Urine Urobilinogen Normal (NORMAL); Urine pH 6.5 pH (5.0-7.0)
[2017-06-19 22:49] LABS: Urine Appearance Clear; Urine Color Yellow; Urine WBC None Seen /hpf (0-5)
[2017-06-19 22:50] LABS: Urine Bacteria TRACE; Urine RBC None Seen /hpf (0-5)
[2017-06-20] MEDS: ALBUTEROL SULFATE/IPRATROPIUM 3 ML NEBU IH SCH ×6 (03:07→22:05)
[2017-06-20] MEDS: METHYLPREDNISOLONE SOD SUCC 80 MG in WATER FOR INJ.,BACTERIOSTATIC 0 ML IV SCH ×4 (03:17→20:00)
[2017-06-20 05:54] LABS: Hemoglobin 15.1 gm/dL (12.5-16.0); Mean Cell Volume 104.3 fl (78-100); Mean Corpuscular Hemoglobin 34.2 pg (27-31); Mean Corpuscular Hgb Conc 32.8 g/dl (32-36); Mean Platelet Volume 9.7 fl (6.0-9.5); Neutrophil # 8.6 K/mm3 (1.3-6.0); Neutrophil % 87.8 % (42-75.0); Platelet Count 186 K/mm3 (150-450); Red Blood Count 4.41 M/mm3 (4.2-5.4); White Blood Count 9.8 K/mm3 (4.0-10.5)
[2017-06-20 05:59] LABS: Anion Gap 10.3 mmol/L (6.8-13.8); BUN/Creatinine Ratio 18.8 (9.0-21.6); Calcium * 8.7 mg/dL (7.9-10.9); Carbon Dioxide 31.6 mmol/L (24-32.6); Estimated Creat Clear 41.9; Potassium 4.9 mmol/L (3.4-4.6)
--- NOTE | 2017-06-20 06:47 | PN ---
Subjective - Date and Time Seen Date: 06/20/17 Time: 06:44 Subjective Narrative: Pt examined this am. Still has expiratory wheezing and gets SOB easily with ambulation. Has no other complaints and no acute events overnight. Objective - Vitals Vitals: Last Vital Signs Temp 36.5 C 06/20/17 00:10 Pulse 83 06/20/17 06:17 Resp 20 06/20/17 06:17 BP 184/68 06/20/17 00:10 Pulse Ox 93 06/20/17 06:07 - Abnormal Lab Findings Abnormal Lab Findings: Abnormal Lab Results 06/19/17 06/20/17 06/20/17 Range/Units 21:00 05:40 05:40 MCV 104.3 H (78-100) fl MCH 34.2 H (27-31) pg MPV 9.7 H (6.0-9.5) fl Immature Gran % (Auto) 0.80 H (0.001-0.429) % Immature Gran # (Auto) 0.08 H (0.000-0.0310) K/mm3 Neutrophils % 87.8 H (42-75.0) % Lymphocytes % 10.5 L (20-51) % Neutrophils # 8.6 H (1.3-6.0) K/mm3 Lymphocytes # 1.0 L (1.5-3.5) k/mm3 Sodium 143 H (132-142) mmol/L Plasma Sodium 144 H (130-142) mmol/L Potassium 4.9 H D (3.4-4.6) mmol/L Random Glucose 170 H (70-110) mg/dL Ur Leukocyte Esterase 75 H (NEGATIVE) /ul Urine WBC 5-10 H (0-5) /hpf Ur Epithelial Cells >25 H (0-5) /hpf Urine Bacteria 4+ H (NONE) Urine Mucus Few - 1+ H (NONE) - Exam Constitutional: Present: Alert, Oriented x3, Cooperative, Well developed, No distress ENT Exam: Present: normal ENT inspection. Absent: nasal drainage, pharyngeal erythema Neck: Present: non-tender, full range of motion, supple Breasts: Present: Exam deferred Respiratory: Present: decreased breath sounds, wheezing, expiration (prolonged) Cardiovascular/Chest: Present: regular rate, rhythm, no chest tenderness, no edema Abdomen: Present: Normal bowel sounds, soft, nontender, obese /Rectal: Present: Exam deferred Extremity: Present: non-tender, normal inspection, no pedal edema Skin Exam: Present: warm/dry, no cyanosis Lymphatic: Present: no adenopathy Neurologic: Present: alert, normal mood/affect, oriented x 3 Appearance: Present: appropriate appearance, appropriate insight Eye contact: Present: cooperative, good eye contact, normal speech Thoughts: Present: no apparent hallucination Assessment/Plan - Problems/Diagnosis (1) COPD exacerbation Problem: Acute Narrative: Pt reported increasing dyspnea and coughing that was outside normal day-to-day variation and she did not respond to outpatient treatment. Will give scheduled Duonebd treatments, IV solumedrol, and will start IV antibiotics (Azithromycin and Rocephin) to prevent the exacerbation progression into Pneumonia given her comorbidites and age. Will attempt to wean off oxygen once she makes progress with SOB. 06/20- Will start weaning off Oxygen, ambulation encouraged. (2) Hypertension Problem: Chronic Qualifiers: Hypertension type: essential hypertension Qualified Code(s): I10 - Essential (primary) hypertension Narrative: Stable- On Coozar & Metoprolol. (3) Failure of outpatient treatment Problem: Acute Narrative: As outlined above- Anticipated LOS 2-3 days (4) GERD (gastroesophageal reflux disease) Problem: Chronic (5) Asthma Problem: Chronic Narrative: Will add prn Albuterol for SOB/Wheezing. (6) Depression Problem: Chronic Narrative: Stable- On Lexapro. (7) Anxiety Problem: Chronic (8) Urinary incontinence Problem: Chronic Narrative: Stable- On Oxybutynin (9) Neuroleptic-induced tardive dyskinesia Problem: Chronic Narrative: On Ingrezza.
[2017-06-20] MEDS: ACETAMINOPHEN 325 MG TABLET PO PRN ×2 (08:14→20:05)
[2017-06-20] MEDS: HEPARIN SODIUM,PORCINE 5,000 UNITS/ML VIAL SC SCH ×2 (08:15→20:14)
[2017-06-20] MEDS: LOSARTAN POTASSIUM 50 MG TABLET PO SCH (08:15)
[2017-06-20] MEDS: ESCITALOPRAM OXALATE 10 MG TAB PO SCH (08:16)
[2017-06-20] MEDS: CHOLECALCIFEROL 1,000 UNIT CAPSULE PO SCH (08:16)
[2017-06-20] MEDS: NYSTATIN 30 APPL TUBE TP SCH ×2 (08:16→20:07)
[2017-06-20] MEDS: GABAPENTIN 400 MG CAPSULE PO SCH ×3 (08:16→17:24)
[2017-06-20] MEDS: OXYBUTYNIN CHLORIDE 5 MG TABLET PO SCH ×2 (08:16→13:22)
[2017-06-20] MEDS: LORazepam 0.5 MG TABLET PO SCH ×2 (08:19→13:22)
--- NOTE | 2017-06-20 08:20 | PN ---
Progess Note - Interim Narrative: 06/20/17 08:17 She is feeling better this morning but there is still poor air exchange and wheezing. Will walk patient and see if O2 saturation drops down. She may need an additional overnight or transfer to acute status for IV Solumedrol/IV antibiotics/breathing treatment to work more before discharge as she failed outpatient treatment with prednisone and inhaler.
[2017-06-20] MEDS: Osteo Bi-Flex Caplet PO SCH ×2 (13:23→20:32)
[2017-06-20] MEDS: TOLTERODINE TARTRATE 2 MG CAPSULE PO SCH (14:15)
[2017-06-20] MEDS: (Valbenazine Tosylate [Ingrezza] 40 MG) PO SCH (14:16)
[2017-06-20] MEDS: LORazepam 1 MG TABLET PO SCH ×2 (14:16→20:08)
[2017-06-20] MEDS: MIRTAZAPINE 15 MG TABLET PO SCH (20:06)
[2017-06-20] MEDS: ASPIRIN 81 MG TAB.CHEW PO SCH (20:09)
[2017-06-20] MEDS: METOPROLOL SUCCINATE 100 MG TABLET.SA PO SCH (20:15)
[2017-06-20] MEDS: AZITHROMYCIN 500 MG in DEXTROSE 5 % IN WATER 250 ML IV SCH ×2 (20:31)
[2017-06-21] MEDS: ALBUTEROL SULFATE/IPRATROPIUM 3 ML NEBU IH SCH ×6 (02:08→22:02)
[2017-06-21] MEDS: METHYLPREDNISOLONE SOD SUCC 80 MG in WATER FOR INJ.,BACTERIOSTATIC 0 ML IV SCH ×4 (02:59→20:14)
[2017-06-21] MEDS: ACETAMINOPHEN 325 MG TABLET PO PRN ×2 (05:03→12:16)
--- NOTE | 2017-06-21 05:55 | PN ---
Subjective - Date and Time Seen Date: 06/21/17 Time: 05:53 Subjective Narrative: Pt examined this am. has been weaned off oxygen. Still complains of SOB with activity. No other acute events overnight. Objective - Vitals Vitals: Last Vital Signs Temp 36.6 C 06/21/17 00:00 Pulse 68 06/21/17 02:17 Resp 18 06/21/17 02:17 BP 121/53 06/21/17 00:00 Pulse Ox 91 06/21/17 00:00 - Exam Constitutional: Present: Alert, Oriented x3, Cooperative, No distress ENT Exam: Present: normal ENT inspection Neck: Present: non-tender, full range of motion, supple Breasts: Present: Exam deferred Respiratory: Present: no accessory muscle use, No rales, No wheezing Cardiovascular/Chest: Present: normal peripheral pulses, regular rate, rhythm, no chest tenderness, no murmur Abdomen: Present: Normal bowel sounds, soft, nontender, obese /Rectal: Present: Exam deferred Extremity: Present: normal range of motion, non-tender, normal inspection, no pedal edema Skin Exam: Present: warm/dry, no cyanosis Lymphatic: Present: no adenopathy Neurologic: Present: no motor/sensory deficits, alert, oriented x 3 Appearance: Present: appropriate appearance, appropriate insight Eye contact: Present: cooperative, good eye contact, normal speech Thoughts: Present: no apparent hallucination Assessment/Plan - Problems/Diagnosis (1) COPD exacerbation Problem: Acute Narrative: Pt reported increasing dyspnea and coughing that was outside normal day-to-day variation and she did not respond to outpatient treatment. Will give scheduled Duonebd treatments, IV solumedrol, and will start IV antibiotics (Azithromycin and Rocephin) to prevent the exacerbation progression into Pneumonia given her comorbidites and age. Will attempt to wean off oxygen once she makes progress with SOB. 06/20- Will start weaning off Oxygen, ambulation encouraged. 06/21- Wean off oxygen. Continue antibiotics/nebs/steroids. Anticipate discharge on Mon/Tu. (2) Hypertension Problem: Chronic Qualifiers: Hypertension type: essential hypertension Qualified Code(s): I10 - Essential (primary) hypertension Narrative: Stable- On Coozar & Metoprolol. (3) Failure of outpatient treatment Problem: Acute (4) GERD (gastroesophageal reflux disease) Problem: Chronic (5) Depression Problem: Chronic (6) Asthma Problem: Chronic Narrative: Will add prn Albuterol for SOB/Wheezing. (7) Anxiety Problem: Chronic (8) Urinary incontinence Problem: Chronic (9) Neuroleptic-induced tardive dyskinesia Problem: Chronic
[2017-06-21] MEDS: LORazepam 1 MG TABLET PO SCH ×3 (06:30→20:23)
[2017-06-21] MEDS: GABAPENTIN 400 MG CAPSULE PO SCH ×3 (08:28→17:25)
[2017-06-21] MEDS: TOLTERODINE TARTRATE 2 MG CAPSULE PO SCH (08:28)
[2017-06-21] MEDS: NYSTATIN 30 APPL TUBE TP SCH ×2 (08:28→20:18)
[2017-06-21] MEDS: ESCITALOPRAM OXALATE 10 MG TAB PO SCH (08:29)
[2017-06-21] MEDS: HEPARIN SODIUM,PORCINE 5,000 UNITS/ML VIAL SC SCH ×2 (08:29→20:12)
[2017-06-21] MEDS: CHOLECALCIFEROL 1,000 UNIT CAPSULE PO SCH (08:29)
[2017-06-21] MEDS: (Valbenazine Tosylate [Ingrezza] 40 MG) PO SCH (08:29)
[2017-06-21] MEDS: Osteo Bi-Flex Caplet PO SCH ×2 (08:30→20:17)
[2017-06-21] MEDS: LOSARTAN POTASSIUM 50 MG TABLET PO SCH (08:41)
[2017-06-21] MEDS: ASPIRIN 81 MG TAB.CHEW PO SCH (20:16)
[2017-06-21] MEDS: MIRTAZAPINE 15 MG TABLET PO SCH (20:16)
[2017-06-21] MEDS: METOPROLOL SUCCINATE 100 MG TABLET.SA PO SCH (20:18)
[2017-06-21] MEDS: AZITHROMYCIN 500 MG in DEXTROSE 5 % IN WATER 250 ML IV SCH ×2 (21:05)
[2017-06-22] MEDS: METHYLPREDNISOLONE SOD SUCC 80 MG in WATER FOR INJ.,BACTERIOSTATIC 0 ML IV SCH ×4 (01:39→20:14)
[2017-06-22] MEDS: ALBUTEROL SULFATE/IPRATROPIUM 3 ML NEBU IH SCH ×3 (02:12→10:17)
[2017-06-22] MEDS: ACETAMINOPHEN 325 MG TABLET PO PRN ×2 (05:55→12:00)
[2017-06-22 05:56] LABS: BUN/Creatinine Ratio 38.4 (9.0-21.6); Calcium * 8.8 mg/dL (7.9-10.9); Carbon Dioxide 30.6 mmol/L (24-32.6); Estimated Creat Clear 46.8; Potassium 4.6 mmol/L (3.4-4.6)
[2017-06-22] MEDS: LORazepam 1 MG TABLET PO SCH ×3 (07:29→20:25)
[2017-06-22] MEDS: HEPARIN SODIUM,PORCINE 5,000 UNITS/ML VIAL SC SCH ×2 (07:29→20:13)
--- NOTE | 2017-06-22 08:26 | PN ---
Subjective - Date and Time Seen Date: 06/22/17 Time: 08:20 Subjective Narrative: Continues to feel better. Still with some SOB when walking in the hallway but better than admission. Objective - Review of Systems Generalized/Overall Review: Denies: Chills, Fever Respiratory: Reports: Shortness of Breath. Denies: Cough, Orthopnea, Wheezing Cardiac: Denies: Chest Pain, Edema, Palpitations Abdominal: Denies: Nausea, Vomiting Genitourinary Symptoms: Denies: Urgency, Frequency - Vitals Vitals: Last Vital Signs Temp 36.3 C L 06/22/17 02:07 Pulse 83 06/22/17 06:25 Resp 20 06/22/17 06:25 BP 152/60 06/22/17 02:07 Pulse Ox 93 06/22/17 06:18 - Abnormal Lab Findings Abnormal Lab Findings: Abnormal Lab Results 06/22/17 Range/Units 05:40 BUN 33 H D (3-23) mg/dL BUN/Creatinine Ratio 38.4 H (9.0-21.6) Random Glucose 171 H (70-110) mg/dL - Exam Constitutional: Present: Alert, Oriented x3, Cooperative, Morbidly obese ENT Exam: Present: hearing grossly normal Neck: Present: supple Respiratory: Present: decreased breath sounds - but better air exchnage, wheezing, No rales, No wheezing Cardiovascular/Chest: Present: regular rate, rhythm, no JVD, no murmur Abdomen: Present: Normal bowel sounds, soft, nontender, obese Extremity: Present: no pedal edema, no calf tenderness Assessment/Plan - Problems/Diagnosis (1) COPD exacerbation Problem: Acute Narrative: possible discharge in the morning. (2) Failure of outpatient treatment Problem: Acute (3) Low O2 saturation Problem: Acute (4) Anxiety Problem: Chronic (5) Depression Problem: Chronic (6) Hypertension Problem: Chronic Qualifiers: Hypertension type: essential hypertension Qualified Code(s): I10 - Essential (primary) hypertension (7) Obsessive compulsive disorder (or obsessive compulsive neurosis) Problem: Chronic
[2017-06-22] MEDS: ESCITALOPRAM OXALATE 10 MG TAB PO SCH (08:30)
[2017-06-22] MEDS: GABAPENTIN 400 MG CAPSULE PO SCH ×3 (08:31→17:19)
[2017-06-22] MEDS: LOSARTAN POTASSIUM 50 MG TABLET PO SCH (08:31)
[2017-06-22] MEDS: CHOLECALCIFEROL 1,000 UNIT CAPSULE PO SCH (08:31)
[2017-06-22] MEDS: TOLTERODINE TARTRATE 2 MG CAPSULE PO SCH (08:31)
[2017-06-22] MEDS: Osteo Bi-Flex Caplet PO SCH ×2 (08:31→20:16)
[2017-06-22] MEDS: NYSTATIN 30 APPL TUBE TP SCH ×2 (08:31→20:11)
[2017-06-22] MEDS: (Valbenazine Tosylate [Ingrezza] 40 MG) PO SCH ×2 (08:32→13:44)
[2017-06-22] MEDS ORDERED: ALBUTEROL SULFATE/IPRATROPIUM 3 ML NEBU IH PRN (13:28)
[2017-06-22] MEDS: ASPIRIN 81 MG TAB.CHEW PO SCH (20:16)
[2017-06-22] MEDS: MIRTAZAPINE 15 MG TABLET PO SCH (20:17)
[2017-06-22] MEDS: METOPROLOL SUCCINATE 100 MG TABLET.SA PO SCH (20:18)
[2017-06-22] MEDS: AZITHROMYCIN 500 MG in DEXTROSE 5 % IN WATER 250 ML IV SCH ×2 (21:12)
[2017-06-23] MEDS: METHYLPREDNISOLONE SOD SUCC 80 MG in WATER FOR INJ.,BACTERIOSTATIC 0 ML IV SCH ×2 (02:48→08:53)
[2017-06-23] MEDS: ACETAMINOPHEN 325 MG TABLET PO PRN (06:43)
[2017-06-23] MEDS: LORazepam 1 MG TABLET PO SCH ×2 (06:43→14:08)
--- NOTE | 2017-06-23 06:59 | DS ---
<Katarina Cervantes - Last Filed: 06/23/17 08:45> (1) COPD exacerbation Problem: Acute (2) Failure of outpatient treatment Problem: Acute (3) Low O2 saturation Problem: Acute (4) Anxiety Problem: Chronic (5) Depression Problem: Chronic (6) Hypertension Problem: Chronic QualifierTitle: Hypertension type: essential hypertension Qualified Code( s): I10 - Essential (primary) hypertension (7) Obsessive compulsive disorder (or obsessive compulsive neurosis) Problem: Chronic Disposition: Home self-care Condition: Good Problem Oriented Discharge Instructions to Patient/Family: Chronic Obstructive Pulmonary Disease Exacerbation Additional Patient Instructions (free text): Please make TCM appointment at discharge, if applicable. Thank you! [phone]. Follow-up with Dr. Cervantes next week. 07/02 at 1:15 Prescriptions (Any new or edited meds): Azithromycin 250 mg PO DAILY #2 tablet predniSONE [Prednisone] 5 mg PO DAILY #2 tab.ds.pk Complete Home Medications List: Complete Home Medication List: LORazepam [Ativan] 2 mg PO TID 07/04/15 Losartan Potassium [Cozaar] 100 mg PO DAILY 07/04/15 Mirtazapine [Remeron] 30 mg PO HS 07/04/15 Aspirin [Philipp Chewable Aspirin] 81 mg PO HS 10/10/15 Glucosamine/D3/Boswellia Selma [Osteo Bi-Flex Caplet] 1 each PO BID 10/10/15 Metoprolol Succinate 50 mg PO BID 10/11/15 Cholecalciferol (Vitamin D3) [Vitamin D3] 2,000 unit PO DAILY 03/06/17 Escitalopram Oxalate [Lexapro] 20 mg PO DAILY 03/06/17 Gabapentin 800 mg PO TID 03/06/17 L.acidoph,Paracasei, B.lactis [Probiotic] 1 each PO DAILY 03/06/17 Valbenazine Tosylate [Ingrezza] 80 mg PO DAILY 06/19/17 Fesoterodine Fumarate [Toviaz] 4 mg PO DAILY 06/20/17 Azithromycin 250 mg PO DAILY #2 tablet 06/23/17 predniSONE [Prednisone] 5 mg PO DAILY #2 tab.ds.pk 06/23/17 <Aby Linares - Last Filed: 06/23/17 21:41> (1) COPD exacerbation Problem: Acute (2) Hypertension Problem: Chronic Qualifiers: Hypertension type: essential hypertension Qualified Code(s): I10 - Essential (primary) hypertension (3) Failure of outpatient treatment Problem: Acute (4) GERD (gastroesophageal reflux disease) Problem: Chronic (5) Depression Problem: Chronic (6) Asthma Problem: Chronic (7) Anxiety Problem: Chronic (8) Urinary incontinence Problem: Chronic (9) Neuroleptic-induced tardive dyskinesia Problem: Chronic Description of Stay: Admission HPI. Ms. Smart is a 76-yr-old [place] pt of Dr. Katarina Cervantes with a PMH of: Anxiety, Asthma, Depression, GERD, HTN, OCD & Osteoarthritis. Pt states that she came to the [facility] ER about 5 days ago for SOB. She was discharged on Duonebs and a short course of Oral Prednisone. She took the medication as advised, but states that her dyspnea never improved. She reports feeling dyspneic even at rest and has had increased non- productive coughing.Today, she called the EMS, who found her POX to be 82% on RA and 2 L of O2 by NC was applied. She denies the associated symptoms of fevers, chills, chest pain, diaphoresis & nasal congrestion/drainage. At the ED, she received breathing treatments which did not give much relief and was tachypneic. She also desaturated to mid 80s when attempts were made to wean off oxygen. The CXR did not have any acute cardiopulmonary findings. Labwork was mostly unremarkable. Due to pt's change in baseline dyspnea and coughing, and failure to respond to initial medical management of exacerbation on an outpatient basis, she will require to be admitted inpatient. Hospital Problem/s 1.) COPD exacerbation. Pt reported increasing dyspnea and coughing that was outside normal day-to-day variation and she did not respond to outpatient treatment. She was admitted inpatient for from 06/19-06/23. She received treatment with scheduled Duoneb treatments, IV solumedrol, and IV antibiotics (Azithromycin and Rocephin) to prevent the exacerbation progression into Pneumonia given her comorbidites and age. She required oxygen to keep pox > 90% and was eventually wean off from it. She was able to tolerate ambulation without feeling SOB. She was able to make good progress and was in a stable state to be discharge home. She was sent home on Prednisoce and Azithromycin x 2 days and is to follow up with her PCP next week. Procedures Performed: none Discharge Disposition: Home self care Discharge Activity: Activity as tolerated Discharge Diet: General/regular food
[2017-06-23] MEDS: HEPARIN SODIUM,PORCINE 5,000 UNITS/ML VIAL SC SCH (08:53)
[2017-06-23] MEDS: ESCITALOPRAM OXALATE 10 MG TAB PO SCH (08:53)
[2017-06-23] MEDS: CHOLECALCIFEROL 1,000 UNIT CAPSULE PO SCH (08:54)
[2017-06-23] MEDS: LOSARTAN POTASSIUM 50 MG TABLET PO SCH (08:54)
[2017-06-23] MEDS: (Valbenazine Tosylate [Ingrezza] 40 MG) PO SCH (08:54)
[2017-06-23] MEDS: NYSTATIN 30 APPL TUBE TP SCH (08:54)
[2017-06-23] MEDS: GABAPENTIN 400 MG CAPSULE PO SCH ×2 (08:54→14:09)
[2017-06-23] MEDS: TOLTERODINE TARTRATE 2 MG CAPSULE PO SCH (08:54)
[2017-06-23] MEDS: Osteo Bi-Flex Caplet PO SCH (08:55)
[2017-06-23 11:13] VITALS: BP 162/88
== END 2017-06-23 16:18 | disposition home or self-care (01) | DRG 191 ==
LOC: ER 14:12 → INTOOBSV 16:53 → MS 16:53 → OBSVTOIN 06-20 08:52
PROVIDERS: ADMIT Internal Medicine; ATTEND Internal Medicine
DX: J44.1 Chronic obstructive pulmonary disease with (acute) exacerbation (principal); F33.9 Major depressive disorder, recurrent, unspecified; R79.81 Abnormal blood-gas level; J45.998 Other asthma; G24.01 Drug induced subacute dyskinesia; I10 Essential (primary) hypertension; K21.9 Gastro-esophageal reflux disease without esophagitis; F41.9 Anxiety disorder, unspecified; R32 Unspecified urinary incontinence; F42.8 Other obsessive-compulsive disorder; Z79.82 Long term (current) use of aspirin; Z23 Encounter for immunization
CPT/HCPCS: 36415; 71020; 80048; 80053; 81001; 83880; 84484; 85025; 85610; 85730; 87040; 87086; 90686; 93005; 94640; 94760; 99285; G0008; G0378

== ENCOUNTER 2017-07-04 15:14 | Emergency (ER) | payer MEDICARE, BC ==
[2017-07-04] MEDS ORDERED: LORazepam 1 MG TABLET PO ONE (15:52)
[2017-07-04] MEDS ORDERED: LORazepam 1 MG TABLET ONE (15:54)
--- NOTE | 2017-07-04 15:58 | ERNOTE ---
Psychological HPI - Date Date of Service: 07/04/17 - General Chief Complaint: Anxiety Source: Reports: patient, RN notes reviewed, past records Exam Limitations: Reports: no limitations - Immun/Allergies/Home Medications Allergies/Adverse Reactions: Allergies Sulfa (Sulfonamide Antibiotics) Allergy (Mild, Verified 07/04/17 15:21) Hives eszopiclone [From Lunesta] Adverse Reaction (Mild, Verified 07/04/17 15:21) RASH Penicillins Adverse Reaction (Mild, Verified 07/04/17 15:21) RASH Home Medications: HOME MEDICATIONS LORazepam [Ativan] 2 mg PO TID 07/04/15 [Last Taken 03/06/17 08:00] Losartan Potassium [Cozaar] 100 mg PO DAILY 07/04/15 [Last Taken Unknown] Mirtazapine [Remeron] 30 mg PO HS 07/04/15 [Last Taken Unknown] Aspirin [Philipp Chewable Aspirin] 81 mg PO HS 10/10/15 [Last Taken Unknown] Glucosamine/D3/Boswellia Selma [Osteo Bi-Flex Caplet] 1 each PO BID 10/10/15 [ Last Taken Unknown] Metoprolol Succinate 50 mg PO BID 10/11/15 [Last Taken Unknown] Cholecalciferol (Vitamin D3) [Vitamin D3] 2,000 unit PO DAILY 03/06/17 [Last Taken Unknown] Escitalopram Oxalate [Lexapro] 20 mg PO DAILY 03/06/17 [Last Taken Unknown] Gabapentin 800 mg PO TID 03/06/17 [Last Taken Unknown] L.acidoph,Paracasei, B.lactis [Probiotic] 1 each PO DAILY 03/06/17 [Last Taken 03/06/17 08:00] Valbenazine Tosylate [Ingrezza] 80 mg PO DAILY 06/19/17 [Last Taken Unknown] Fesoterodine Fumarate [Toviaz] 4 mg PO DAILY 06/20/17 [Last Taken Unknown] Azithromycin 250 mg PO DAILY #2 tablet 06/23/17 [Last Taken Unknown] predniSONE [Prednisone] 5 mg PO DAILY #2 tab.ds.pk 06/23/17 [Last Taken Unknown] - History of Present Illness Narrative: 76 year old female brought to the ED by ambulance from her home for anxiety. She reports starting to feel anxious about an hour ago. She reports being somewhat nervous all day. She does not know what is causing her symptoms. She was just discharged from the hospital 4 days ago after being admitted for a COPD exacerbation. She was then seen in the clinic for follow up on 07/02 and was doing well at that time. Time Seen by Provider: 07/04/17 15:30 Arrived by: Reports: ambulance Onset/duration: Reports: gradual onset, continues in ED Prior Treament: Reports: recently seen, treated by physician, recently hospitalized, similar symptoms before. Denies: currently on antibiotics Review of Systems - Review of Systems Constitutional: Present: recent illness, decreased activity level EYE: Present: no symptoms reported ENT: Present: no symptoms reported Respiratory: Present: shortness of breath. Absent: cough, wheezing Cardiology: Absent: chest pain, palpitations, syncope Gastrointestinal/Abdominal: Absent: nausea, vomiting Genitourinary: Present: no symptoms reported Musculoskeletal: Present: muscle pain, neck pain Skin: Absent: rash, lesions Neurological: Absent: headache, dizziness/light-headedness Endocrine: Present: no symptoms reported Hematologic/Lymphatic: Present: no symptoms reported Psych: Present: anxiety, depressed, emotional problems - Patient's Past Medical History Patient History - Medical: Anxiety, Depression, GERD, Obesity, Osteoarthritis Patient History - Cardiac/Respiratory: Bronchitis, COPD, Hypertension Patient History - Cancer: No Hx of Cancer Patient History - Surgical Procedures: Appendectomy, Cholecystectomy, Total Knee Replacement, T & A Patient History - Other: None - Family History Mother Family History - Medical: , Diabetes Type 2 Insulin Dependent Family History - Cardiac/Respiratory: History Unknown, Other Family History - Cancer: No pertinent family hx Father Family History - Medical: , Dementia, Depression, Other Family History - Cardiac/Respiratory: No pertinent hx Family History - Cancer: No pertinent family hx - Social History Living Situations: spouse Abuse History: No History of abuse Psych History: Hx of Anxiety, Hx of Depression Smoking Status: Never smoker Alcohol Use: none Drug Use: none - Immunizations Immunizations Up to Date: No Hx Pneumococcal Vaccination: No History of Influenza Vaccine: No Psychological Exam - Exam General Appearance: Present: alert, no apparent distress, anxious, obese Head Exam: Present: normal inspection, no evidence of injury Neurological: Present: alert, oriented x 3, anxious Thoughts/Hallucinations: Present: normal thought pattern, no apparent hallucination Behavior/Eye Contact/Speech: Present: cooperative, good eye contact, normal speech Neck: Present: normal inspection, nontender, supple, full range of motion Respiratory: Present: no respiratory distress, normal breath sounds, no accessory muscle use, lungs clear Cardiovascular/Chest: Present: regular rate, rhythm, no murmur Extremity Exam: Present: non-tender, normal range of motion, pedal edema Skin Exam: Present: normal color, warm/dry, no cyanosis ED Progress - Vital Signs Patient's Vital Signs:: I have reviewed the patient's vital signs. Vital Signs: Vital Signs 07/04/17 15:17 Temperature 36.6 C Pulse Rate 91 Respiratory 12 Rate Blood Pressure 182/77 O2 Sat by Pulse 94 Oximetry - Progress/Reassessment Chief Complaint: Anxiety Progress:: Improved Plan - Plan Plan: O2 sat is 94% on room air, lungs are clear, patient reassured that her respiratory status is still doing well. Additional dose of lorazepam given ( takes 1.5 mg tid). D/c'd home. To f/u with PCP if symptoms continue. Departure Clinical Impression: Anxiety - Departure Disposition: Home Follow Up Needed Condition: Stable Instructions: Panic Attacks, [id number] Additional Instructions: Continue your routine medications Follow up with Dr. Cervantes about your anxiety if it continues Referrals: Katarina Cervantes MD [Staff Physician] -
[2017-07-04 18:25] VITALS: BP 158/72
== END 2017-07-04 16:05 | disposition home or self-care (01) ==
LOC: ER 15:14
DX: F41.1 Generalized anxiety disorder (principal); K21.9 Gastro-esophageal reflux disease without esophagitis; M19.90 Unspecified osteoarthritis, unspecified site; J44.9 Chronic obstructive pulmonary disease, unspecified; I10 Essential (primary) hypertension

== ENCOUNTER 2017-07-11 11:19 | Emergency (ER) | payer MEDICARE, BC ==
--- NOTE | 2017-07-11 11:35 | ERNOTE ---
Dyspnea - General Presenting Symptoms: shortness of breath Time Seen by Provider: 07/11/17 11:20 Source: patient Exam Limitations: no limitations - Immun/Allergies/Home Medications Immunizations: IMMUNIZATION HX Immunizations Up to Date Yes History of Influenza Vaccine Yes Hx Pneumococcal Vaccination No Allergies/Adverse Reactions: Allergies Sulfa (Sulfonamide Antibiotics) Allergy (Mild, Verified 07/11/17 12:11) Hives eszopiclone [From Lunesta] Adverse Reaction (Mild, Verified 07/11/17 12:11) RASH Penicillins Adverse Reaction (Mild, Verified 07/11/17 12:11) RASH Home Medications: HOME MEDICATIONS LORazepam [Ativan] 2 mg PO TID 07/04/15 [Last Taken 03/06/17 08:00] Losartan Potassium [Cozaar] 100 mg PO DAILY 07/04/15 [Last Taken Unknown] Mirtazapine [Remeron] 30 mg PO HS 07/04/15 [Last Taken Unknown] Aspirin [Pihlipp Chewable Aspirin] 81 mg PO HS 10/10/15 [Last Taken Unknown] Glucosamine/D3/Boswellia Selma [Osteo Bi-Flex Caplet] 1 each PO BID 10/10/15 [ Last Taken Unknown] Metoprolol Succinate 50 mg PO BID 10/11/15 [Last Taken Unknown] Cholecalciferol (Vitamin D3) [Vitamin D3] 2,000 unit PO DAILY 03/06/17 [Last Taken Unknown] Escitalopram Oxalate [Lexapro] 20 mg PO DAILY 03/06/17 [Last Taken Unknown] Gabapentin 800 mg PO TID 03/06/17 [Last Taken Unknown] L.acidoph,Paracasei, B.lactis [Probiotic] 1 each PO DAILY 03/06/17 [Last Taken 03/06/17 08:00] Valbenazine Tosylate [Ingrezza] 80 mg PO DAILY 06/19/17 [Last Taken Unknown] Fesoterodine Fumarate [Toviaz] 4 mg PO DAILY 06/20/17 [Last Taken Unknown] - History of Present Illness Narrative: Patient called EMS as she wasn't feeling good. On extensive questioning she did not have any focal complaints till they were ready to leave. At that point she complained of shortness of breath which she has had for a long time. She never smoked but has a diagnosis of COPD, has had multiple ER visit for shortness of breath and was admitted to COPD exacerbation and hypoxemia on 06/20/2017. She states that she is dealing with depression, has very little energy and spends her days in her chair, her takes care of her. Treatment [facility]: paramedics, oxygen Initiating event: Denies: upper resp illness, out of meds, sports/exercise, aspiration/choking, allergy to environment, exposure to smoke Frequency of episodes: Reports: frequent episodes Modifying Factors - (Improves): Reports: oxygen Modifying Factors (Worsens): Reports: nothing Associated Symptoms-Dyspnea: Reports: ankle/leg swelling - bilateral. Denies: fever/chills, sweating, chest pain/discomfort, cough, wheezing, leg/calf pain Prior Treatment: Reports: recently seen. Denies: currently on antibiotics Review of Systems - Review of Systems Constitutional: Present: recent illness, malaise. Absent: fever ENT: Absent: ear pain, nose congestion, nasal drainage, sore throat Respiratory: Present: shortness of breath. Absent: cough Cardiology: Absent: chest pain Gastrointestinal/Abdominal: Absent: nausea, vomiting, abdominal pain Genitourinary: Present: no symptoms reported Musculoskeletal: Absent: back pain Skin: Absent: rash Neurological: Absent: headache - Patient's Past Medical History Patient History - Medical: Anxiety, Depression, GERD, Obesity, Osteoarthritis Patient History - Cardiac/Respiratory: Bronchitis, COPD, Hypertension Patient History - Cancer: No Hx of Cancer Patient History - Surgical Procedures: Appendectomy, Cholecystectomy, Total Knee Replacement, T & A Patient History - Other: None LMP (females 10-50): Menopausal - Family History Mother Family History - Medical: , Diabetes Type 2 Insulin Dependent Family History - Cardiac/Respiratory: History Unknown, Other Family History - Cancer: No pertinent family hx Father Family History - Medical: , Dementia, Depression, Other Family History - Cardiac/Respiratory: No pertinent hx Family History - Cancer: No pertinent family hx - Social History Living Situations: home Abuse History: No History of abuse Psych History: Hx of Anxiety, Hx of Depression Smoking Status: Never smoker Alcohol Use: none Drug Use: none - Immunizations Immunizations Up to Date: Yes Hx Pneumococcal Vaccination: No History of Influenza Vaccine: Yes Physical Exam - Physical Exam General Appearance: Present: wd/wn, alert, no apparent distress, obese Eye Exam: Normal inspection: bilateral, PERRL: bilateral Respiratory: Present: no respiratory distress, normal breath sounds, no accessory muscle use, lungs clear Cardiovascular/Chest: Present: regular rate, rhythm, no murmur Gastrointestinal/Abdominal: Present: normal bowel sounds, nondistended, soft, tenderness - mild diffuse Extremity Exam: Present: pedal edema - trace bilateral. Absent: calf tenderness Neurological Exam: Present: alert, oriented, other - flat affect Skin Exam: Present: normal color, warm/dry ED Progress - Results and Orders Patient's Lab Results:: I have reviewed the patient's lab results. - Vital Signs Patient's Vital Signs:: I have reviewed the patient's vital signs. Vital Signs: Vital Signs 07/11/17 11:22 Temperature 36.2 C L Pulse Rate 79 Respiratory 12 Rate Blood Pressure 200/78 O2 Sat by Pulse 89 L Oximetry - EKG EKG: NSR, nonspecific ST T wave changes EKG read: Interp. by me - Progress/Reassessment Chief Complaint: Dyspnea Progress Note-Subjective: 07/11/17 13:47 discussed results with patient, no clear pathology nor reason to admit. when patient is sitting up and take deep breath O2 sats in mid 90's, when laying down low 90's, discussed need to move around more Departure Clinical Impression: Depression Qualifiers: Depression Type: unspecified Qualified Code(s): F32.9 - Major depressive disorder, single episode, unspecified Dyspnea Qualifiers: Dyspnea type: unspecified Qualified Code(s): R06.00 - Dyspnea, unspecified - Departure Disposition: Home self-care Condition: Stable Instructions: Fatigue Additional Instructions: call your doctor for follow up Referrals: Katarina Cervantes MD [Staff Physician] -
[2017-07-11 11:49] LABS: Hematocrit 41.4 % (37.0-47.0); Hemoglobin 13.7 gm/dL (12.5-16.0); Mean Cell Volume 102.2 fl (78-100); Mean Corpuscular Hemoglobin 33.8 pg (27-31); Mean Corpuscular Hgb Conc 33.1 g/dl (32-36); Neutrophil # 5.3 K/mm3 (1.3-6.0); Neutrophil % 63.4 % (42-75.0); Platelet Count 148 K/mm3 (150-450); Red Blood Count 4.05 M/mm3 (4.2-5.4); White Blood Count 8.4 K/mm3 (4.0-10.5)
[2017-07-11] MEDS ORDERED: ACETAMINOPHEN 325 MG TABLET PO ONE (12:17)
[2017-07-11] MEDS ORDERED: ACETAMINOPHEN 325 MG TABLET ONE (12:18)
[2017-07-11 12:19] LABS: Albumin * 3.3 gm/dl (3.4-5.0); Anion Gap 9.8 mmol/L (6.8-13.8); BUN/Creatinine Ratio 18.1 (9.0-21.6); Bilirubin, Total 0.6 mg/dL (0.0-1.1); Ca. Corrected For Albumin 8.9 mg/dL (8.4-10.2); Calcium * 8.7 mg/dL (7.9-10.9); Carbon Dioxide 32.6 mmol/L (24-32.6); Potassium 4.4 mmol/L (3.4-4.6); Total Protein 6.3 gm/dL (6.2-8.2)
[2017-07-11 12:25] LABS: Urine Bilirubin Negative (NEGATIVE); Urine Blood Negative /ul (NEGATIVE); Urine Ketone Negative (NEGATIVE); Urine Nitrite Negative (NEGATIVE); Urine Protein Negative (NEGATIVE); Urine Urobilinogen Normal (NORMAL)
[2017-07-11] MEDS ORDERED: LORazepam 1 MG TABLET PO ONE (12:33)
[2017-07-11] MEDS ORDERED: LORazepam 1 MG TABLET ONE (12:33)
[2017-07-11 12:35] LABS: Urine Appearance Clear; Urine Bacteria TRACE; Urine Color Yellow; Urine RBC None Seen /hpf (0-5); Urine WBC TRACE /hpf (0-5)
[2017-07-11] MEDS ORDERED: ALBUTEROL SULFATE 2.5 MG/0.5 ML VIAL.NEB IH ONE ×2 (13:23→13:26)
[2017-07-11 13:33] VITALS: BP 170/70
== END 2017-07-11 14:24 | disposition home or self-care (01) ==
LOC: ER 11:19
DX: F32.9 Major depressive disorder, single episode, unspecified (principal); R06.00 Dyspnea, unspecified; K21.9 Gastro-esophageal reflux disease without esophagitis; M19.90 Unspecified osteoarthritis, unspecified site; J44.9 Chronic obstructive pulmonary disease, unspecified; I10 Essential (primary) hypertension; F41.8 Other specified anxiety disorders

== ENCOUNTER 2017-08-20 21:10 | Inpatient (IN) | payer MEDICARE, BC ==
--- NOTE | 2017-08-20 21:40 | ERNOTE ---
Upper Extremity HPI - General Extremities Pain Location: shoulder: right - pain Time Seen by Provider: 08/20/17 21:15 Source: patient Exam Limitations: no limitations - Immun/Allergies/Home Medications Immunizations: IMMUNIZATION HX Immunizations Up to Date Yes History of Influenza Vaccine Yes Hx Pneumococcal Vaccination Yes Allergies/Adverse Reactions: Allergies Allergy/AdvReac Type Severity Reaction Status Date / Time Sulfa (Sulfonamide Allergy Mild Hives Verified 07/11/17 12:11 Antibiotics) eszopiclone [From Lunesta] AdvReac Mild RASH Verified 07/11/17 12:11 Penicillins AdvReac Mild RASH Verified 07/11/17 12:11 Home Medications: HOME MEDICATIONS LORazepam [Ativan] 1.5 mg PO TID 07/04/15 [Last Taken 03/06/17 08:00] Losartan Potassium [Cozaar] 100 mg PO DAILY 07/04/15 [Last Taken Unknown] Mirtazapine [Remeron] 30 mg PO HS 07/04/15 [Last Taken Unknown] Aspirin [[place] Chewable Aspirin] 81 mg PO HS 10/10/15 [Last Taken Unknown] Glucosamine/D3/Boswellia [place] [Osteo Bi-Flex Caplet] 1 each PO BID 10/10/15 [ Last Taken Unknown] Metoprolol Succinate 100 mg PO BID 10/11/15 [Last Taken Unknown] Cholecalciferol (Vitamin D3) [Vitamin D3] 2,000 unit PO DAILY 03/06/17 [Last Taken Unknown] Escitalopram Oxalate [Lexapro] 20 mg PO DAILY 03/06/17 [Last Taken Unknown] Gabapentin 800 mg PO TID 03/06/17 [Last Taken Unknown] L.acidoph,Paracasei, B.lactis [Probiotic] 1 each PO DAILY 03/06/17 [Last Taken 03/06/17 08:00] Valbenazine Tosylate [Ingrezza] 80 mg PO DAILY 06/19/17 [Last Taken Unknown] Benztropine Mesylate [Cogentin] 0.5 mg PO BID 08/20/17 [Last Taken Unknown] oxyCODONE HCL/ACETAMINOPHEN [Percocet 5 MG/325 MG] 1 tab PO QID PRN #30 tablet 08/21/17 [Last Taken Unknown] - History of Present Illness Narrative: Pt fell at home and has right shoulder pain. Pt had a family member come over and help her to get up then brought her to the ED. Occurred: just prior to arrival - approx 30-45 min [employer]. Location of Incident: home Severity: moderate Method of Injury: Reports: fell Reason for Fall: Reports: unknown Loss of Consciousness: Reports: no loss of consciousness Modifying Factors - (Improves): Reports: immobilization Modifying Factors - (Worsens): Reports: movement Associated Symptoms: Reports: loss of power (lt arm) Other Injuries: Reports: none Review of Systems - Review of Systems Constitutional: Absent: recent illness, fever EYE: Present: no symptoms reported ENT: Present: no symptoms reported Respiratory: Absent: shortness of breath Cardiology: Absent: chest pain Gastrointestinal/Abdominal: Absent: nausea, vomiting Genitourinary: Present: other - Pt had loss of bladder control during this incident Musculoskeletal: Present: See HPI Skin: Absent: rash Neurological: Present: weakness Endocrine: Absent: excessive sweating, flushing Hematologic/Lymphatic: Absent: easy bruising, easy bleeding Psych: Absent: emotional problems - Patient's Past Medical History Patient History - Medical: Anxiety, Depression, GERD, Obesity, Osteoarthritis Patient History - Cardiac/Respiratory: Bronchitis, COPD, Hypertension Patient History - Cancer: No Hx of Cancer Patient History - Surgical Procedures: Appendectomy, Cholecystectomy, Colonoscopy, EGD, Total Knee Replacement, T & A Patient History - Other: None - Family History Mother Family History - Medical: , Diabetes Type 2 Insulin Dependent Family History - Cardiac/Respiratory: History Unknown, Other Family History - Cancer: No pertinent family hx Father Family History - Medical: , Dementia, Depression, Other Family History - Cardiac/Respiratory: No pertinent hx Family History - Cancer: No pertinent family hx - Social History Abuse History: No History of abuse Psych History: Hx of Anxiety, Hx of Depression Smoking Status: Never smoker Alcohol Use: none Drug Use: none - Immunizations Immunizations Up to Date: Yes Hx Pneumococcal Vaccination: Yes History of Influenza Vaccine: Yes Physical Exam - Physical Exam General Appearance: Present: wd/wn, alert, moderate distress Head Exam: Present: normal inspection, no evidence of injury Neck: Present: normal inspection, nontender, supple Respiratory: Present: no respiratory distress, normal breath sounds, lungs clear Cardiovascular/Chest: Present: regular rate, rhythm, no murmur, normal peripheral pulses Peripheral Pulses: N=norm/S=strong/W=weak/B=bound/A=absent: Radial (R): Normal Gastrointestinal/Abdominal: Present: normal bowel sounds, nontender, soft Back Exam: Present: normal inspection, normal range of motion, no vertebral tenderness Extremity Exam: Present: decreased range of motion - right Neurological Exam: Present: alert, oriented Skin Exam: Present: normal color, warm/dry Lymphatic Exam: Present: no adenopathy ED Progress - Results and Orders Patient's Lab Results:: I have reviewed the patient's lab results. Results and Orders: Laboratory Tests 08/20/17 08/20/17 08/21/17 21:45 21:45 01:40 WBC 10.6 H Hgb 15.1 Hct 45.4 Plt Count 221 Sodium 142 Potassium 3.8 Chloride 103 Carbon Dioxide 30.3 Anion Gap 12.5 BUN 16 Creatinine 0.80 Random Glucose 134 H Calcium 9.1 Total Bilirubin 0.8 AST 35 ALT 37 Alkaline Phosphatase 87 Total Protein 6.5 Albumin 3.4 Urine Color Yellow Urine Appearance Turbid Urine pH 5.5 Ur Specific [place] >=1.030 Urine Protein 15 H Urine Glucose (UA) Negative Urine Ketones 15 Urine Blood 250 H Urine Nitrate Negative Urine Bilirubin Negative Prot Sulfosalicylic Acd 2+ H Urine Urobilinogen Normal Ur Leukocyte Esterase 75 H Urine RBC 5-10 H Urine WBC 10-25 H Ur Epithelial Cells 5-10 H Urine Bacteria None seen Urine Mucus Many - 3+ H Urine Culture Comments Culture to follow - Vital Signs Patient's Vital Signs:: I have reviewed the patient's vital signs. Vital Signs: Vital Signs 08/20/17 21:13 Temperature 36.4 C L Pulse Rate 76 Respiratory 24 H Rate Blood Pressure 177/84 - X-Ray X-Ray #1 X-Ray: shoulder Interpretation: Interp. by me X-ray Comments: right shoulder: inferior dislocation without fracture visible post reduction: good alignment without fracture - Progress/Reassessment Chief Complaint: Shoulder Injury/Pain Progress:: Improved Progress Note-Subjective: initially the patient was going to be discharged but as we discussed her weakness and attempted to wean her oxygen it was obvious that there was more going on that caused her fall. Further work up was accomplished and admit recommended. 08/21/17 03:28 Spoke with Ariel VALERIO hospitalist and she agrees with observation admit. Procedures Joint Reduction Site: shoulder (R) Conscious Sedation: Yes - Per anesthesia Reduction Attempts: 2 Pre-Procedure NV Exam: Yes - N/V intact Post-Procedure NV Exam: Yes - N/V intact Post Joint Reduction Film: joint reduced Complications: Pt ben procedure well Departure Clinical Impression: Low O2 saturation, Weakness Dislocation, shoulder, inferior Qualifiers: Encounter type: initial encounter Laterality: right Qualified Code(s): S43.034A - Inferior dislocation of right humerus, initial encounter UTI (urinary tract infection) Qualifiers: Urinary tract infection type: acute cystitis Hematuria presence: with hematuria Qualified Code(s): N30.01 - Acute cystitis with hematuria - Departure Disposition: [facility] Condition: Good
[2017-08-20 21:51] LABS: Hematocrit 45.4 % (37.0-47.0); Hemoglobin 15.1 gm/dL (12.5-16.0); Mean Cell Volume 103.2 fl (78-100); Mean Corpuscular Hemoglobin 34.3 pg (27-31); Mean Corpuscular Hgb Conc 33.3 g/dl (32-36); Mean Platelet Volume 9.7 fl (6.0-9.5); Neutrophil # 6.4 K/mm3 (1.3-6.0); Neutrophil % 60.1 % (42-75.0); Platelet Count 221 K/mm3 (150-450); Red Cell Distribution Width 13.4 % (11.5-14.0); White Blood Count 10.6 K/mm3 (4.0-10.5)
[2017-08-20 22:04] LABS: Albumin * 3.4 gm/dl (3.4-5.0); Anion Gap 12.5 mmol/L (6.8-13.8); Bilirubin, Total 0.8 mg/dL (0.0-1.1); Ca. Corrected For Albumin 9.3 mg/dL (8.4-10.2); Calcium * 9.1 mg/dL (7.9-10.9); Carbon Dioxide 30.3 mmol/L (24-32.6); Potassium 3.8 mmol/L (3.4-4.6); Total Protein 6.5 gm/dL (6.2-8.2)
[2017-08-20] MEDS ORDERED: ONDANSETRON HCL/PF 2 MG/ML VIAL IV ONE (22:32)
[2017-08-20] MEDS ORDERED: MORPHINE SULFATE 2 MG/ML DISP.SYRIN IV ONE (22:33)
[2017-08-20] MEDS ORDERED: MORPHINE SULFATE 2 MG/ML DISP.SYRIN ONE (22:46)
[2017-08-20] MEDS ORDERED: ONDANSETRON HCL/PF 2 MG/ML VIAL ONE (22:46)
[2017-08-21] MEDS ORDERED: oxyCODONE HCL/ACETAMINOPHEN 1 TAB TABLET PO ONE (00:15)
[2017-08-21] MEDS ORDERED: oxyCODONE HCL/ACETAMINOPHEN 1 TAB TABLET ONE (00:35)
[2017-08-21 02:05] LABS: Urine Bilirubin Negative (NEGATIVE); Urine Blood 250 /ul (NEGATIVE); Urine Ketone 15 mg/dL (NEGATIVE); Urine Nitrite Negative (NEGATIVE); Urine Protein 15 mg/dL (NEGATIVE); Urine Specific Gravity >=1.030 SP.GR. (1.005-1.010); Urine Urobilinogen Normal (NORMAL); Urine pH 5.5 pH (5.0-7.0)
[2017-08-21 02:10] LABS: Urine Appearance Turbid; Urine Bacteria None Seen; Urine Color Yellow; Urine Mucus Many - 3+
--- NOTE | 2017-08-21 05:27 | HP ---
Chief Complaint - Chief Complaint Date of Service: 08/21/17 Time of Service: 03:45 Chief Complaint: shoulder dislocated History of Present Illness: 76 years old white female was brought to the ER by relatives, pt stated she miss step while at home and fell dislocating her shoulder. She has been getting increasingly weaker and unable to move around the house. pt denies shortness of breath, cough, palpitation, overactive bladder,dizziness, chest pain before and after incident. Pt think her fall was as a result she is getting weaker. PMH depression, anxiety, hypertension, asthma,generalized weakness, COPD and OCD. In ER pt spo2 was 80's upon arrival to the ER, she continue to desat after shoulder was reduced and despite weaning off oxygen. Pt denies supplemented oxygen at home. pt was D/C from rehab service last month, she follow up with neurologist for weakness and Dr Denise for psychiatric service at [facility] [place]. Plan of care discussed with pt she verbalized understanding and agrees. - Patient's Past Medical History Patient History - Medical: Anxiety, Depression, GERD, Obesity, Osteoarthritis Patient History - Cardiac/Respiratory: Bronchitis, COPD, Hypertension Patient History - Cancer: No Hx of Cancer Patient History - Surgical Procedures: Appendectomy, Cholecystectomy, Colonoscopy, EGD, Total Knee Replacement, T & A Patient History - Other: None LMP (females 10-50): other - Family History Mother Family History - Medical: , Diabetes Type 2 Insulin Dependent Family History - Cardiac/Respiratory: History Unknown, Other Family History - Cancer: No pertinent family hx Father Family History - Medical: , Dementia, Depression, Other Family History - Cardiac/Respiratory: No pertinent hx Family History - Cancer: No pertinent family hx - Social History Living Situations: home Abuse History: No History of abuse Psych History: Hx of Anxiety, Hx of Depression Smoking Status: Never smoker Have you smoked in the past 12 months: No Patient requests Smoking Cessation Consult: No Initiate information on Smoking Cessation: No Alcohol Use: none Drug Use: none - Immunizations Immunizations Up to Date: Yes Hx Pneumococcal Vaccination: Yes History of Influenza Vaccine: Yes Review Of Systems (GEN) - Review of Systems Generalized/Overall Review: Present: Weakness EENTM: Present: No Symptoms Reported Respiratory: Present: No Symptoms Reported Cardiac: Present: No Symptoms Reported Abdominal: Present: No Symptoms Reported Genitourinary: Present: No Symptoms Reported Musculoskeletal: Present: Joint Pain Neurological: Present: Anxiety, Depressed, Weakness Skin: Present: No Symptoms Reported Endocrine: Present: No Symptoms Reported Immunizations: IMMUNIZATION HX Immunizations Up to Date Yes History of Influenza Vaccine Yes Hx Pneumococcal Vaccination Yes Allergies/Adverse Reactions: Allergies Allergy/AdvReac Type Severity Reaction Status Date / Time Sulfa (Sulfonamide Allergy Mild Hives Verified 07/11/17 12:11 Antibiotics) eszopiclone [From Lunesta] AdvReac Mild RASH Verified 07/11/17 12:11 Penicillins AdvReac Mild RASH Verified 07/11/17 12:11 Home Medications: HOME MEDICATIONS LORazepam [Ativan] 1.5 mg PO TID 07/04/15 [Last Taken 03/06/17 08:00] Losartan Potassium [Cozaar] 100 mg PO DAILY 07/04/15 [Last Taken Unknown] Mirtazapine [Remeron] 30 mg PO HS 07/04/15 [Last Taken Unknown] Aspirin [[place] Chewable Aspirin] 81 mg PO HS 10/10/15 [Last Taken Unknown] Glucosamine/D3/Boswellia [place] [Osteo Bi-Flex Caplet] 1 each PO BID 10/10/15 [ Last Taken Unknown] Metoprolol Succinate 100 mg PO BID 10/11/15 [Last Taken Unknown] Cholecalciferol (Vitamin D3) [Vitamin D3] 2,000 unit PO DAILY 03/06/17 [Last Taken Unknown] Escitalopram Oxalate [Lexapro] 20 mg PO DAILY 03/06/17 [Last Taken Unknown] Gabapentin 800 mg PO TID 03/06/17 [Last Taken Unknown] L.acidoph,Paracasei, B.lactis [Probiotic] 1 each PO DAILY 03/06/17 [Last Taken 03/06/17 08:00] Valbenazine Tosylate [Ingrezza] 80 mg PO DAILY 06/19/17 [Last Taken Unknown] Benztropine Mesylate [Cogentin] 0.5 mg PO BID 08/20/17 [Last Taken Unknown] Amitriptyline HCl [Elavil] 10 mg PO HS 08/21/17 [Last Taken Unknown] oxyCODONE HCL/ACETAMINOPHEN [Percocet 5 MG/325 MG] 1 tab PO QID PRN #30 tablet 08/21/17 [Last Taken Unknown] Exam - Exam Vital Signs: Vital Signs - Last Taken Temp 36.3 C L 08/21/17 03:27 Pulse 83 08/21/17 03:27 Resp 18 08/21/17 03:27 BP 160/72 08/21/17 03:27 Pulse Ox 93 08/21/17 03:27 Constitutional: Present: Alert, Oriented x3, Cooperative, Obese ENT Exam: Present: hearing grossly normal Eye Exam: bilateral eye: normal inspection Neck: Present: full range of motion Back Exam: Present: no CVA tenderness Breasts: Present: Exam deferred Respiratory: Present: chest non-tender, normal breath sounds, no respiratory distress, decreased breath sounds Cardiovascular/Chest: Present: normal peripheral pulses, regular rate, rhythm, no chest tenderness, no edema Peripheral Pulses: dorsalis-pedis (R): 3+, dorsalis-pedis (L): 3+ Abdomen: Present: Normal bowel sounds, soft, nontender, nondistended, no rebound tenderness Extremity: Present: normal range of motion, non-tender Skin Exam: Present: warm/dry Neurologic: Present: oriented x 3 Appearance: Present: appropriate appearance Eye contact: Present: cooperative, good eye contact Thoughts: Present: normal thought pattern Diagnostic Studies: Laboratory Results WBC 10.6 K/mm3 (4.0-10.5) H 08/20/17 21:45 RBC 4.40 M/mm3 (4.2-5.4) 08/20/17 21:45 Hgb 15.1 gm/dL (12.5-16.0) 08/20/17 21:45 Hct 45.4 % (37.0-47.0) 08/20/17 21:45 MCV 103.2 fl (78-100) H 08/20/17 21:45 MCH 34.3 pg (27-31) H 08/20/17 21:45 MCHC 33.3 g/dl (32-36) 08/20/17 21:45 RDW 13.4 % (11.5-14.0) 08/20/17 21:45 Plt Count 221 K/mm3 (150-450) 08/20/17 21:45 MPV 9.7 fl (6.0-9.5) H 08/20/17 21:45 Immature Gran % (Auto) 0.40 % (0.001-0.429) 08/20/17 21:45 Immature Gran # (Auto) 0.04 K/mm3 (0.000-0.0310) H 08/20/17 21:45 Neutrophils % 60.1 % (42-75.0) 08/20/17 21:45 Lymphocytes % 28.2 % (20-51) 08/20/17 21:45 Monocytes % 8.1 % (0.0-9) 08/20/17 21:45 Eosinophils % 2.8 % (0.0-3.0) 08/20/17 21:45 Basophils % 0.4 % (0.0-1.0) 08/20/17 21:45 Nucleated RBC % 0.0 k/mm3 (0-1) 08/20/17 21:45 Neutrophils # 6.4 K/mm3 (1.3-6.0) H 08/20/17 21:45 Lymphocytes # 3.0 k/mm3 (1.5-3.5) 08/20/17 21:45 Monocytes # 0.9 k/mm3 (0.0-1.0) 08/20/17 21:45 Eosinophils # 0.3 k/mm3 (0.0-0.7) 08/20/17 21:45 Absolute Basophils 0.0 k/mm3 (0.0-0.1) 08/20/17 21:45 Sodium 142 mmol/L (132-142) 08/20/17 21:45 Plasma Sodium 143 mmol/L (130-142) H 08/20/17 21:45 Potassium 3.8 mmol/L (3.4-4.6) 08/20/17 21:45 Chloride 103 mmol/L (97-106) 08/20/17 21:45 Carbon Dioxide 30.3 mmol/L (24-32.6) 08/20/17 21:45 Anion Gap 12.5 mmol/L (6.8-13.8) 08/20/17 21:45 BUN 16 mg/dL (3-23) 08/20/17 21:45 Creatinine 0.80 mg/dL (0.4-1.4) 08/20/17 21:45 Est GFR (Non-Af Amer) 74 mL/min (60-130) 08/20/17 21:45 BUN/Creatinine Ratio 20.0 (9.0-21.6) 08/20/17 21:45 Random Glucose 134 mg/dL (70-110) H 08/20/17 21:45 Calcium 9.1 mg/dL (7.9-10.9) 08/20/17 21:45 Calcium Adj for Albumin 9.3 mg/dL (8.4-10.2) 08/20/17 21:45 Total Bilirubin 0.8 mg/dL (0.0-1.1) 08/20/17 21:45 AST 35 U/L (0-48) 08/20/17 21:45 ALT 37 U/L (19-67) 08/20/17 21:45 Alkaline Phosphatase 87 U/L (50-170) 08/20/17 21:45 Total Protein 6.5 gm/dL (6.2-8.2) 08/20/17 21:45 Albumin 3.4 gm/dl (3.4-5.0) 08/20/17 21:45 Urine Color Yellow 08/21/17 01:40 Urine Appearance Turbid 08/21/17 01:40 Urine pH 5.5 pH (5.0-7.0) 08/21/17 01:40 Ur Specific [place] >=1.030 SP.GR. (1.005-1.010) 08/21/17 01:40 Urine Protein 15 mg/dL (NEGATIVE) H 08/21/17 01:40 Urine Glucose (UA) Negative mg/dL (NEGATIVE) 08/21/17 01:40 Urine Ketones 15 mg/dL (NEGATIVE) 08/21/17 01:40 Urine Blood 250 /ul (NEGATIVE) H 08/21/17 01:40 Urine Nitrate Negative (NEGATIVE) 08/21/17 01:40 Urine Bilirubin Negative mg/dl (NEGATIVE) 08/21/17 01:40 Prot Sulfosalicylic Acd 2+ mg/dL (0) H 08/21/17 01:40 Urine Urobilinogen Normal EU/dl (NORMAL) 08/21/17 01:40 Ur Leukocyte Esterase 75 /ul (NEGATIVE) H 08/21/17 01:40 Urine RBC 5-10 /hpf (0-5) H 08/21/17 01:40 Urine WBC 10-25 /hpf (0-5) H 08/21/17 01:40 Ur Epithelial Cells 5-10 /hpf (0-5) H 08/21/17 01:40 Urine Bacteria None seen (NONE) 08/21/17 01:40 Urine Mucus Many - 3+ (NONE) H 08/21/17 01:40 Urine Culture Comments Culture to follow 08/21/17 01:40 X-Ray Right shoulder: right shoulder: inferior dislocation without fracture visible post reduction: good alignment without fracture Assessment/Plan - Narrative Narrative: Hypoxic as a result of acute asthma exac Pt with history asthma and COPD no reports of shortness of breath or observed distress. On adm spo2 76% on RA, pt was placed on and it improved 90-94% Attempt was made to wean pt off oxygen after shoulder was reduced she continue to desat Continue with oxygen and gradually wean as indicated. CXR: No acute cardiopulmonary process ABG pending supplemented oxygen Generalized weakness pt was getting in home therapy and was D/C from service last month She continue to report increased weakness She follow up with Neurologist at [facility] PT/OT eval and treatment Anxiety and depression- stable Continue with home medications UTI seen on UA asymptomatic Initiated cipro bID urine culture pending Dislocated right shoulder- resolved Code status: Full VTE ppx: SCd and ambulate GI ppx: Pepcid Time 50 minutes and previous records reviewed and case discussed with Dr Espinosa - Assessment/Plan (1) Hypoxic Problem: Resolved (2) UTI (urinary tract infection) Problem: Acute Qualifiers: Urinary tract infection type: acute cystitis Hematuria presence: with hematuria Qualified Code(s): N30.01 - Acute cystitis with hematuria (3) Weakness Problem: Chronic (4) Asthma Problem: Chronic (5) COPD (chronic obstructive pulmonary disease) Problem: Chronic (6) Depression Problem: Chronic (7) GERD (gastroesophageal reflux disease) Problem: Chronic (8) Hypertension Problem: Chronic Qualifiers: Hypertension type: essential hypertension Qualified Code(s): I10 - Essential (primary) hypertension (9) Neuroleptic-induced tardive dyskinesia Problem: Chronic (10) Obsessive compulsive disorder (or obsessive compulsive neurosis) Problem: Chronic
[2017-08-21] MEDS ORDERED: CIPROFLOXACIN HCL 500 MG TABLET PO SCH (07:15)
[2017-08-21] MEDS: CIPROFLOXACIN HCL 500 MG TABLET PO SCH ×2 (07:41→21:34)
[2017-08-21] MEDS: FAMOTIDINE 20 MG TABLET PO SCH (07:41)
--- NOTE | 2017-08-21 08:30 | PN ---
Progess Note - Interim Narrative: 08/21/17 08:28 I saw and examined this patient on 08/21/2017. I agree with the narrative and plan of TEODORO Rice. We will continue with her breathing treatment and O2 supplementation for her hypoxia likely multifactorial- sedation/acute asthma exacerbation . Will start Flovent inhaler 2 puffs BID. Continue with her home medications. PT/OT on consult for her shoulder dislocation.
[2017-08-21] MEDS: LORazepam 0.5 MG TABLET PO SCH ×3 (08:52→16:28)
[2017-08-21] MEDS: ESCITALOPRAM OXALATE 10 MG TAB PO SCH (08:53)
[2017-08-21] MEDS: LOSARTAN POTASSIUM 50 MG TABLET PO SCH (08:53)
[2017-08-21] MEDS: BENZTROPINE MESYLATE 0.5 MG TABLET PO SCH ×2 (08:53→21:34)
[2017-08-21] MEDS: LACTOBACILLUS ACIDOPHILUS 100 CAP BTL PO SCH (08:53)
[2017-08-21] MEDS: Osteo Bi-Flex Caplet PO SCH ×2 (08:53→21:39)
[2017-08-21] MEDS: METOPROLOL SUCCINATE 100 MG TABLET.SA PO SCH ×2 (08:54→21:34)
[2017-08-21] MEDS: GABAPENTIN 400 MG CAPSULE PO SCH ×3 (08:54→16:28)
[2017-08-21] MEDS: CHOLECALCIFEROL 1,000 UNIT CAPSULE PO SCH (08:54)
[2017-08-21] MEDS ORDERED: VALBENAZINE TOSYLATE 80 MG PO SCH (09:00)
[2017-08-21] MEDS: ACETAMINOPHEN 325 MG TABLET PO PRN (09:08)
[2017-08-21] MEDS: ALBUTEROL SULFATE/IPRATROPIUM 3 ML NEBU IH PRN ×2 (09:47→17:07)
[2017-08-21] MEDS: BUDESONIDE 0.5 MG/2 ML VIAL.NEB IH SCH ×3 (09:47→18:21)
[2017-08-21] MEDS: Valbenazine Tosylate [Ingrezza] 80 MG PO SCH (11:46)
[2017-08-21] MEDS: ENOXAPARIN SODIUM 40 MG/0.4 ML SYRG SC SCH (14:35)
[2017-08-21] MEDS: ASPIRIN 81 MG TAB.CHEW PO SCH (21:34)
[2017-08-21] MEDS: MIRTAZAPINE 15 MG TABLET PO SCH (21:34)
[2017-08-22] MEDS: traMADol HCL 50 MG TABLET PO PRN (07:34)
[2017-08-22] MEDS: BUDESONIDE 0.5 MG/2 ML VIAL.NEB IH SCH ×2 (08:03→19:31)
[2017-08-22] MEDS: LACTOBACILLUS ACIDOPHILUS 100 CAP BTL PO SCH (08:21)
[2017-08-22] MEDS: LORazepam 0.5 MG TABLET PO SCH ×3 (08:21→16:44)
[2017-08-22] MEDS: GABAPENTIN 400 MG CAPSULE PO SCH ×3 (08:21→16:45)
[2017-08-22] MEDS: ESCITALOPRAM OXALATE 10 MG TAB PO SCH (08:22)
[2017-08-22] MEDS: LOSARTAN POTASSIUM 50 MG TABLET PO SCH (08:22)
[2017-08-22] MEDS: METOPROLOL SUCCINATE 100 MG TABLET.SA PO SCH ×2 (08:23→20:35)
[2017-08-22] MEDS: CIPROFLOXACIN HCL 500 MG TABLET PO SCH ×2 (08:23→20:34)
[2017-08-22] MEDS: CHOLECALCIFEROL 1,000 UNIT CAPSULE PO SCH (08:23)
[2017-08-22] MEDS: BENZTROPINE MESYLATE 0.5 MG TABLET PO SCH ×2 (08:24→20:34)
[2017-08-22] MEDS: FAMOTIDINE 20 MG TABLET PO SCH (08:24)
[2017-08-22] MEDS: Osteo Bi-Flex Caplet PO SCH ×2 (08:24→20:34)
--- NOTE | 2017-08-22 08:34 | PN ---
Subjective - Date and Time Seen Date: 08/22/17 Time: 08:32 Subjective Narrative: Patient is saturating better but continues to not ambulate with PT. She has been falling down frequently in recent days. She says that her legs just fees weak. Ingrezza dose is now reduced to 40 mg. Objective - Review of Systems Generalized/Overall Review: Reports: Weakness Respiratory: Denies: Cough, Shortness of Breath Cardiac: Denies: Chest Pain, Edema, Palpitations Abdominal: Denies: Nausea, Vomiting Genitourinary Symptoms: Denies: Urgency, Frequency - Vitals Vitals: Last Vital Signs Temp 36.4 C L 08/22/17 06:21 Pulse 76 08/22/17 08:23 Resp 16 08/22/17 08:13 BP 147/67 08/22/17 08:23 Pulse Ox 95 08/22/17 08:03 - Exam Constitutional: Present: Alert, Oriented x3, Cooperative ENT Exam: Present: hearing grossly normal Neck: Present: supple Respiratory: Present: decreased breath sounds, No rales, No wheezing Cardiovascular/Chest: Present: regular rate, rhythm, no JVD, no murmur Abdomen: Present: Normal bowel sounds, soft, nontender, nondistended Extremity: Present: no calf tenderness, pedal edema Assessment/Plan - Problems/Diagnosis (1) Dislocation, shoulder, inferior Problem: Acute Qualifiers: Encounter type: initial encounter Laterality: right Qualified Code(s): S43.034A - Inferior dislocation of right humerus, initial encounter Narrative: s/p closed reduction. on a sling. PT/OT is working with her. 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 ingrezza decreased to 40 mg from 80 mg PO QD.. will likely need NH placement for strengthening before going home. (3) Hypoxic Problem: Resolved Narrative: likely due to sedation and acute bronchospasm from her Asthma/panic attack. 92- 95 % %on RA. (4) UTI (urinary tract infection) Problem: Acute Qualifiers: Urinary tract infection type: acute cystitis Hematuria presence: with hematuria Qualified Code(s): N30.01 - Acute cystitis with hematuria Narrative: alpha hemolytic strep. continue with Cipro. await final results. (5) Panic disorder Problem: Chronic (6) Asthma Problem: Chronic (7) Neuroleptic-induced tardive dyskinesia Problem: Chronic (8) Obsessive compulsive disorder (or obsessive compulsive neurosis) Problem: Chronic (9) Urinary incontinence Problem: Chronic
[2017-08-22] MEDS: Valbenazine Tosylate [Ingrezza] 80 MG PO SCH (09:41)
[2017-08-22] MEDS: ENOXAPARIN SODIUM 40 MG/0.4 ML SYRG SC SCH (13:38)
[2017-08-22] MEDS: ALBUTEROL SULFATE/IPRATROPIUM 3 ML NEBU IH PRN (19:30)
[2017-08-22] MEDS: ASPIRIN 81 MG TAB.CHEW PO SCH (20:33)
[2017-08-22] MEDS: MIRTAZAPINE 15 MG TABLET PO SCH (20:35)
[2017-08-23] MEDS: ALBUTEROL SULFATE/IPRATROPIUM 3 ML NEBU IH PRN (06:03)
[2017-08-23] MEDS: BUDESONIDE 0.5 MG/2 ML VIAL.NEB IH SCH ×2 (06:03→18:08)
[2017-08-23] MEDS: traMADol HCL 50 MG TABLET PO PRN (07:12)
[2017-08-23] MEDS: FAMOTIDINE 20 MG TABLET PO SCH (09:45)
[2017-08-23] MEDS: CHOLECALCIFEROL 1,000 UNIT CAPSULE PO SCH (09:45)
[2017-08-23] MEDS: LORazepam 0.5 MG TABLET PO SCH ×2 (09:45→13:10)
[2017-08-23] MEDS: VALBENAZINE 40 MG PO SCH (09:45)
[2017-08-23] MEDS: ESCITALOPRAM OXALATE 10 MG TAB PO SCH (09:45)
[2017-08-23] MEDS: LACTOBACILLUS ACIDOPHILUS 100 CAP BTL PO SCH (09:45)
[2017-08-23] MEDS: GABAPENTIN 400 MG CAPSULE PO SCH ×3 (09:45→17:15)
[2017-08-23] MEDS: BENZTROPINE MESYLATE 0.5 MG TABLET PO SCH (09:46)
[2017-08-23] MEDS: LOSARTAN POTASSIUM 50 MG TABLET PO SCH (09:46)
[2017-08-23] MEDS: CIPROFLOXACIN HCL 500 MG TABLET PO SCH ×2 (09:46→20:35)
[2017-08-23] MEDS: Osteo Bi-Flex Caplet PO SCH ×2 (09:47→21:01)
[2017-08-23] MEDS: METOPROLOL SUCCINATE 100 MG TABLET.SA PO SCH ×2 (09:55→20:36)
[2017-08-23] MEDS: ACETAMINOPHEN 325 MG TABLET PO PRN (12:00)
[2017-08-23] MEDS: ENOXAPARIN SODIUM 40 MG/0.4 ML SYRG SC SCH (14:55)
[2017-08-23] MEDS: AMITRIPTYLINE HCL 10 MG TABLET PO SCH ×2 (14:56→20:35)
--- NOTE | 2017-08-23 15:24 | PN ---
Subjective - Date and Time Seen Date: 08/23/17 Time: 11:00 Subjective Narrative: Patient seen and examined at bedside. Patient resting comfortably in bed at the time of my exam. No acute issues overnight. Patient admits to some left shoulder discomfort but otherwise denies any new issues or concerns. Objective - Review of Systems Generalized/Overall Review: Reports: Weakness, Fatigue EENTM: Reports: No Symptoms Reported Respiratory: Reports: No Symptoms Reported Cardiac: Reports: No Symptoms Reported Abdominal: Reports: No Symptoms Reported Genitourinary Symptoms: Reports: No Symptoms Reported Musculoskeletal Complaints: Reports: Joint Pain Neurological: Reports: No Symptoms Reported Skin: Reports: No Symptoms Reported Endocrine: Reports: No Symptoms Reported Misc: All systems neg except as marked - Vitals Vitals: Last Vital Signs Temp 36.6 C 08/23/17 11:27 Pulse 78 08/23/17 11:27 Resp 18 08/23/17 11:27 BP 124/68 08/23/17 11:27 Pulse Ox 98 08/23/17 11:27 - Exam Constitutional: Present: Alert, No distress, Elderly, Obese ENT Exam: Present: moist mucous membranes Respiratory: Present: lungs clear, normal breath sounds, no respiratory distress , no accessory muscle use Cardiovascular/Chest: Present: regular rate, rhythm Abdomen: Present: soft, nontender, nondistended Skin Exam: Present: warm/dry Neurologic: Present: alert Assessment/Plan Plan Narrative: For the patient's UTI, today will be day #3 of Cipro. Plan to discontinue antibiotics tomorrow. Continue PT/OT evaluation and treatment. Plan to discharge to a SNF for ongoing therapies on 08/25/2017. - Problems/Diagnosis (1) Dislocation, shoulder, inferior Problem: Acute Qualifiers: Encounter type: subsequent encounter Laterality: right Qualified Code(s) : S43.034D - Inferior dislocation of right humerus, subsequent encounter (2) Low O2 saturation Problem: Resolved (3) Weakness Problem: Acute Narrative: Acute on Chronic (4) UTI (urinary tract infection) Problem: Acute Qualifiers: Urinary tract infection type: acute cystitis Hematuria presence: with hematuria Qualified Code(s): N30.01 - Acute cystitis with hematuria
[2017-08-23] MEDS: LORazepam 1 MG TABLET PO SCH (17:15)
[2017-08-23] MEDS: ASPIRIN 81 MG TAB.CHEW PO SCH (20:36)
[2017-08-24] MEDS: BUDESONIDE 0.5 MG/2 ML VIAL.NEB IH SCH ×2 (06:09→18:22)
--- NOTE | 2017-08-24 07:41 | PN ---
Subjective - Date and Time Seen Date: 08/24/17 Time: 07:36 Subjective Narrative: patient seen today sitting up in the chair. pt stated she refusing to ambulate and want to be lift because she is scared of falling and continue to feel weak. She was D/C from PT while at home and want to have placement for inpt rehab. She denies pain to lower extremities and stated her should gives her a little pain but its tolerable. Objective - Review of Systems Generalized/Overall Review: Reports: No Symptoms Reported EENTM: Reports: No Symptoms Reported Respiratory: Reports: No Symptoms Reported Cardiac: Reports: No Symptoms Reported Abdominal: Reports: No Symptoms Reported Genitourinary Symptoms: Reports: No Symptoms Reported Musculoskeletal Complaints: Reports: Joint Pain, Muscle Pain Neurological: Reports: Weakness Skin: Reports: No Symptoms Reported Endocrine: Reports: No Symptoms Reported - Vitals Vitals: Last Vital Signs Temp 36.8 C 08/24/17 06:41 Pulse 78 08/24/17 06:41 Resp 18 08/24/17 06:41 BP 130/64 08/24/17 06:41 Pulse Ox 98 08/24/17 06:41 - Exam Constitutional: Present: Alert, Oriented x3, Cooperative, No distress, Elderly ENT Exam: Present: hearing grossly normal Neck: Present: full range of motion Breasts: Present: Exam deferred Respiratory: Present: chest non-tender, lungs clear, normal breath sounds, no respiratory distress Cardiovascular/Chest: Present: normal peripheral pulses, regular rate, rhythm, no chest tenderness, no edema Abdomen: Present: Normal bowel sounds, soft, nontender /Rectal: Present: Exam deferred Extremity: Present: non-tender, normal inspection, no pedal edema, no calf tenderness Skin Exam: Present: normal color, warm/dry Neurologic: Present: oriented x 3 Appearance: Present: appropriate appearance Thoughts: Present: normal thought pattern Assessment/Plan Plan Narrative: Generalized Weakness Continue with PT/OT eval and treatment plan for placement upon discharge for rehab on friday UTI Completed antbx Code staus : Full - Problems/Diagnosis (1) Hypoxic Problem: Resolved (2) UTI (urinary tract infection) Problem: Acute Qualifiers: Urinary tract infection type: acute cystitis Hematuria presence: with hematuria Qualified Code(s): N30.01 - Acute cystitis with hematuria (3) Weakness Problem: Chronic (4) Asthma Problem: Chronic (5) COPD (chronic obstructive pulmonary disease) Problem: Chronic (6) Depression Problem: Chronic (7) GERD (gastroesophageal reflux disease) Problem: Chronic (8) Hypertension Problem: Chronic Qualifiers: Hypertension type: essential hypertension Qualified Code(s): I10 - Essential (primary) hypertension (9) Neuroleptic-induced tardive dyskinesia Problem: Chronic (10) Obsessive compulsive disorder (or obsessive compulsive neurosis) Problem: Chronic
[2017-08-24] MEDS: LOSARTAN POTASSIUM 50 MG TABLET PO SCH (08:41)
[2017-08-24] MEDS: LACTOBACILLUS ACIDOPHILUS 100 CAP BTL PO SCH (08:41)
[2017-08-24] MEDS: VALBENAZINE 40 MG PO SCH (08:47)
[2017-08-24] MEDS: ESCITALOPRAM OXALATE 10 MG TAB PO SCH (08:47)
[2017-08-24] MEDS: CHOLECALCIFEROL 1,000 UNIT CAPSULE PO SCH (08:48)
[2017-08-24] MEDS: GABAPENTIN 400 MG CAPSULE PO SCH ×3 (08:49→17:16)
[2017-08-24] MEDS: Osteo Bi-Flex Caplet PO SCH ×2 (08:49→21:57)
[2017-08-24] MEDS: METOPROLOL SUCCINATE 100 MG TABLET.SA PO SCH ×2 (08:50→21:56)
[2017-08-24] MEDS: FAMOTIDINE 20 MG TABLET PO SCH (08:50)
[2017-08-24] MEDS: MIRABEGRON 50 MG PO SCH (08:53)
[2017-08-24] MEDS: LORazepam 1 MG TABLET PO SCH ×2 (12:27→17:16)
[2017-08-24] MEDS: ENOXAPARIN SODIUM 40 MG/0.4 ML SYRG SC SCH (14:28)
[2017-08-24] MEDS: ASPIRIN 81 MG TAB.CHEW PO SCH (21:56)
[2017-08-24] MEDS: AMITRIPTYLINE HCL 10 MG TABLET PO SCH (21:57)
[2017-08-25] MEDS: BUDESONIDE 0.5 MG/2 ML VIAL.NEB IH SCH ×2 (06:04→18:30)
[2017-08-25] MEDS: LACTOBACILLUS ACIDOPHILUS 100 CAP BTL PO SCH (08:50)
[2017-08-25] MEDS: LOSARTAN POTASSIUM 50 MG TABLET PO SCH (08:53)
[2017-08-25] MEDS: VALBENAZINE 40 MG PO SCH (08:55)
[2017-08-25] MEDS: GABAPENTIN 400 MG CAPSULE PO SCH ×3 (08:56→17:13)
[2017-08-25] MEDS: ESCITALOPRAM OXALATE 10 MG TAB PO SCH (08:56)
[2017-08-25] MEDS: CHOLECALCIFEROL 1,000 UNIT CAPSULE PO SCH (08:57)
[2017-08-25] MEDS: FAMOTIDINE 20 MG TABLET PO SCH (08:57)
[2017-08-25] MEDS: METOPROLOL SUCCINATE 100 MG TABLET.SA PO SCH (08:57)
[2017-08-25] MEDS: Osteo Bi-Flex Caplet PO SCH ×2 (08:58→21:27)
[2017-08-25] MEDS: MIRABEGRON 50 MG PO SCH (08:58)
[2017-08-25] MEDS: LORazepam 1 MG TABLET PO SCH ×2 (12:45→17:13)
[2017-08-25] MEDS: ENOXAPARIN SODIUM 40 MG/0.4 ML SYRG SC SCH (15:35)
[2017-08-25] MEDS: ACETAMINOPHEN 325 MG TABLET PO PRN (17:13)
--- NOTE | 2017-08-25 18:42 | PN ---
Subjective - Date and Time Seen Date: 08/25/17 Time: 09:20 Subjective Narrative: Patient seen and examined at bedside. Patient resting comfortably in bed at the time of my exam. No acute issues overnight. Patient admits to some left shoulder discomfort but otherwise denies any new issues or concerns. Objective - Review of Systems Generalized/Overall Review: Reports: Weakness, Fatigue EENTM: Reports: No Symptoms Reported Respiratory: Reports: No Symptoms Reported Cardiac: Reports: No Symptoms Reported Abdominal: Reports: No Symptoms Reported Genitourinary Symptoms: Reports: No Symptoms Reported Musculoskeletal Complaints: Reports: Joint Pain Neurological: Reports: No Symptoms Reported Skin: Reports: No Symptoms Reported Endocrine: Reports: No Symptoms Reported Misc: All systems neg except as marked - Vitals Vitals: Last Vital Signs Temp 36.6 C 08/25/17 15:00 Pulse 71 08/25/17 18:30 Resp 18 08/25/17 18:30 BP 130/53 08/25/17 15:00 Pulse Ox 96 08/25/17 18:30 - Exam Constitutional: Present: Alert, No distress, Obese ENT Exam: Present: moist mucous membranes Respiratory: Present: lungs clear, normal breath sounds, no respiratory distress , no accessory muscle use Cardiovascular/Chest: Present: regular rate, rhythm Abdomen: Present: soft, nontender, nondistended, obese Skin Exam: Present: warm/dry Neurologic: Present: alert Assessment/Plan Plan Narrative: The patient is medically stable and hopefully will be discharged to SNF later today. - Problems/Diagnosis (1) Dislocation, shoulder, inferior Problem: Acute Qualifiers: Encounter type: subsequent encounter Laterality: right Qualified Code(s) : S43.034D - Inferior dislocation of right humerus, subsequent encounter (2) Low O2 saturation Problem: Resolved (3) Weakness Problem: Chronic (4) UTI (urinary tract infection) Problem: Resolved Qualifiers: Urinary tract infection type: acute cystitis Hematuria presence: with hematuria Qualified Code(s): N30.01 - Acute cystitis with hematuria (5) Discharge planning issues Problem: Acute
[2017-08-25] MEDS: ASPIRIN 81 MG TAB.CHEW PO SCH (21:25)
[2017-08-25] MEDS: AMITRIPTYLINE HCL 10 MG TABLET PO SCH (21:25)
[2017-08-26] MEDS: BUDESONIDE 0.5 MG/2 ML VIAL.NEB IH SCH (06:06)
--- NOTE | 2017-08-26 08:18 | DS ---
(1) Dislocation, shoulder, inferior Diagnosis(s): s/p reduction Problem: Resolved Qualifiers: Encounter type: subsequent encounter Laterality: right Qualified Code(s) : S43.034D - Inferior dislocation of right humerus, subsequent encounter (2) Weakness Diagnosis(s): multifactorial- decondtioning/tardive dyskinesia Problem: Chronic (3) Hypoxic Diagnosis(s): likely due to sedation/panic attack/asthma exacerbation Problem: Resolved (4) UTI (urinary tract infection) Diagnosis(s): Enterobacter fecalis UTI Problem: Resolved Qualifiers: Urinary tract infection type: acute cystitis Hematuria presence: with hematuria Qualified Code(s): N30.01 - Acute cystitis with hematuria (5) Panic disorder Problem: Chronic (6) Asthma Problem: Chronic (7) Neuroleptic-induced tardive dyskinesia Problem: Chronic (8) Obsessive compulsive disorder (or obsessive compulsive neurosis) Problem: Chronic (9) Urinary incontinence Problem: Chronic Description of Stay: Kenisha Smart, is a 76 years old white female who was brought to the ER by relatives, and was admitted on 08/21/2017 because of a fall and right shoulder pain. The pt stated she missed a step while at home and fell dislocating her right shoulder. She had been getting increasingly weaker and unable to move around the house. pt denied shortness of breath, cough, palpitation, overactive bladder,dizziness, chest pain before and after incident. Pt thought her fall was as a result of her getting weaker. PMH depression, anxiety, hypertension, asthma,generalized weakness, COPD and OCD. In ER pt spo2 was 80's upon arrival to the ER, she continue to desat after shoulder was reduced and despite weaning off oxygen. Pt denies supplemented oxygen at home. pt was D/C from rehab service last month, she follow up with neurologist for weakness and Dr Denise for psychiatric service at [facility]. Her shoulder was reduced under sedation in the ER. Her hypoxia and low desaturation was likely due to her panic attacks/asthma execarbation and then made worst with her sedation. She was admitted for observation because of her low saturations. Her O2 stabilized under room air but PT/OT found her not safe to go home as she was weak and deconditioned and slow to work with them. Her UCS grew Enterobacter Fecalis sensitive to Cipro. She is stable now to go to the PA for more strengthening exerices before going home. Procedures Performed: see notes below List Procedures: close reduction of the shoulder Discharge Disposition: Other HealthCare facility [facility] Disposition: Other health care facility Condition: Good Discharge Activity: Activity as tolerated Discharge Diet: General/regular food Discharge Level of Care:: [facility] Therapy: Physicial Therapy, Occupation Therapy Additional Patient Instructions (free text): To [facility] for therapies. Follow up with PCP in 4 weeks. Prescriptions (Any new or edited meds): Acetaminophen [Tylenol] 650 mg PO Q6H PRN #30 tablet PRN Reason: Pain/Fever Albuterol Sulfate [Proair Hfa] 1 - 2 puff IH Q4H PRN #1 inhaler PRN Reason: Shortness Of Breath/Wheezing traMADol HCL [Ultram] 50 mg PO Q6H PRN #30 tablet PRN Reason: Pain Complete Home Medications List: Complete Home Medication List: LORazepam [Ativan] 1 mg PO BID 07/04/15 Losartan Potassium [Cozaar] 100 mg PO DAILY 07/04/15 Aspirin [Philipp Chewable Aspirin] 81 mg PO HS 10/10/15 Glucosamine/D3/Boswellia [place] [Osteo Bi-Flex Caplet] 1 each PO BID 10/10/15 Metoprolol Succinate 100 mg PO BID 10/11/15 Cholecalciferol (Vitamin D3) [Vitamin D3] 2,000 unit PO DAILY 03/06/17 Escitalopram Oxalate [Lexapro] 20 mg PO DAILY 03/06/17 Gabapentin 800 mg PO TID 03/06/17 L.acidoph,Paracasei, B.lactis [Probiotic] 1 each PO DAILY 03/06/17 Valbenazine Tosylate [Ingrezza] 80 mg PO DAILY 06/19/17 Amitriptyline HCl [Elavil] 10 mg PO HS 08/21/17 Mirabegron [Myrbetriq] 50 mg PO DAILY 08/23/17 Acetaminophen [Tylenol] 650 mg PO Q6H PRN #30 tablet 08/26/17 Albuterol Sulfate [Proair Hfa] 1 - 2 puff IH Q4H PRN #1 inhaler 08/26/17 traMADol HCL [Ultram] 50 mg PO Q6H PRN #30 tablet 08/26/17
[2017-08-26] MEDS: LACTOBACILLUS ACIDOPHILUS 100 CAP BTL PO SCH (08:19)
[2017-08-26] MEDS: VALBENAZINE 40 MG PO SCH (08:19)
[2017-08-26] MEDS: LOSARTAN POTASSIUM 50 MG TABLET PO SCH (08:25)
[2017-08-26] MEDS: MIRABEGRON 50 MG PO SCH (08:26)
[2017-08-26] MEDS: ESCITALOPRAM OXALATE 10 MG TAB PO SCH (08:26)
[2017-08-26] MEDS: Osteo Bi-Flex Caplet PO SCH (08:26)
[2017-08-26] MEDS: GABAPENTIN 400 MG CAPSULE PO SCH ×2 (08:26→12:20)
[2017-08-26] MEDS: FAMOTIDINE 20 MG TABLET PO SCH (08:27)
[2017-08-26] MEDS: CHOLECALCIFEROL 1,000 UNIT CAPSULE PO SCH (08:28)
[2017-08-26] MEDS ORDERED: METOPROLOL SUCCINATE 100 MG TABLET.SA PO SCH (09:00)
[2017-08-26 10:26] VITALS: BP 147/60
[2017-08-26] MEDS: ACETAMINOPHEN 325 MG TABLET PO PRN (10:28)
[2017-08-26] MEDS: LORazepam 1 MG TABLET PO SCH (12:22)
== END 2017-08-26 13:26 | DRG 690 ==
LOC: ER 21:10 → MS 08-21 02:40 → OBSVTOIN 08-21 12:05
PROVIDERS: ADMIT Nurse Practitioner; ATTEND Internal Medicine
PROC: 0T9B7ZZ Drainage of Bladder, Via Natural or Artificial Opening (ICD-10-PCS; principal; 2017-08-20)
PROC: 0RSJXZZ Reposition Right Shoulder Joint, External Approach (ICD-10-PCS; 2017-08-20)
PROC: 0RSJXZZ Reposition Right Shoulder Joint, External Approach (ICD-10-PCS; 2017-08-20)
PROC: 2W3AXYZ Immobilization of Right Upper Arm using Other Device (ICD-10-PCS; 2017-08-20)
PROC: 4A033R1 Measurement of Arterial Saturation, Peripheral, Percutaneous Approach (ICD-10-PCS; 2017-08-21)
DX: N30.01 Acute cystitis with hematuria (principal); J45.901 Unspecified asthma with (acute) exacerbation; S43.034A Inferior dislocation of right humerus, initial encounter; B96.89 Other specified bacterial agents as the cause of diseases classified elsewhere; R09.02 Hypoxemia; F41.0 Panic disorder [episodic paroxysmal anxiety]; R53.1 Weakness; R79.81 Abnormal blood-gas level; W19.XXXA Unspecified fall, initial encounter; Z91.81 History of falling; G24.01 Drug induced subacute dyskinesia; J44.9 Chronic obstructive pulmonary disease, unspecified; I10 Essential (primary) hypertension; K21.9 Gastro-esophageal reflux disease without esophagitis; Y92.009 Unspecified place in unspecified non-institutional (private) residence as the place of occurrence of the external cause

== ENCOUNTER 2018-01-02 16:17 | Observation (INO) ==
--- NOTE | 2018-01-02 17:15 | ERNOTE ---
Medical Problem HPI - Narrative Date of Service: 01/02/18 - General Chief Complaint: General Assessment Time Seen by Provider: 01/02/18 17:05 - Immun/Allergies/Home Medications Immunizations: IMMUNIZATION HX Immunizations Up to Date Yes History of Influenza Vaccine No Hx Pneumococcal Vaccination No Allergies/Adverse Reactions: Allergies Sulfa (Sulfonamide Antibiotics) Allergy (Mild, Verified 01/02/18 16:47) Hives eszopiclone [From Lunesta] Adverse Reaction (Mild, Verified 01/02/18 16:47) RASH Penicillins Adverse Reaction (Mild, Verified 01/02/18 16:47) RASH Home Medications: HOME MEDICATIONS LORazepam [Ativan] 1 mg PO BID 07/04/15 [Last Taken 03/06/17 08:00] Losartan Potassium [Cozaar] 100 mg PO DAILY 07/04/15 [Last Taken Unknown] Aspirin [Philipp Chewable Aspirin] 81 mg PO HS 10/10/15 [Last Taken Unknown] Glucosamine/D3/Boswellia [place] [Osteo Bi-Flex Caplet] 1 each PO BID 10/10/15 [ Last Taken Unknown] Metoprolol Succinate 100 mg PO BID 10/11/15 [Last Taken Unknown] Cholecalciferol (Vitamin D3) [Vitamin D3] 2,000 unit PO DAILY 03/06/17 [Last Taken Unknown] Escitalopram Oxalate [Lexapro] 20 mg PO DAILY 03/06/17 [Last Taken Unknown] Gabapentin 800 mg PO TID 03/06/17 [Last Taken Unknown] L.acidoph,Paracasei, B.lactis [Probiotic] 1 each PO DAILY 03/06/17 [Last Taken 03/06/17 08:00] Valbenazine Tosylate [Ingrezza] 80 mg PO DAILY 06/19/17 [Last Taken Unknown] Amitriptyline HCl [Elavil] 10 mg PO HS 08/21/17 [Last Taken Unknown] Mirabegron [Myrbetriq] 50 mg PO DAILY 08/23/17 [Last Taken Unknown] Acetaminophen [Tylenol] 650 mg PO Q6H PRN #30 tablet 08/26/17 [Last Taken Unknown] Albuterol Sulfate [Proair Hfa] 1 - 2 puff IH Q4H PRN #1 inhaler 08/26/17 [Last Taken Unknown] traMADol HCL [Ultram] 50 mg PO Q6H PRN #30 tablet 08/26/17 [Last Taken Unknown] - History of Present History Narrative: 77-year-old female presents to the emergency room for increased shortness of breath and increased swelling. Patient states that she has noticed over the last 2 days that she has had increasing swelling and shortness of breath and he came to walking. She states her hands fairly tight. Patient states that she has been communication with her primary care provider Dr. Ramon regarding this and was advised to come to the emergency room. Date (Duration): 01/02/18 Timing: getting worse Modifying Factors - (Worsens): Present: movement Review of Systems - Narrative Narrative: Patient states that she does not follow any specific diet but has gained weight over the last few weeks. - Review of Systems Constitutional: Present: See HPI, fatigue, malaise EYE: Present: no symptoms reported ENT: Present: no symptoms reported Respiratory: Present: See HPI, shortness of breath Cardiology: Present: See HPI, edema Gastrointestinal/Abdominal: Present: no symptoms reported Genitourinary: Present: no symptoms reported Musculoskeletal: Present: no symptoms reported Skin: Present: no symptoms reported Neurological: Present: no symptoms reported Endocrine: Present: no symptoms reported Hematologic/Lymphatic: Present: no symptoms reported Psych: Present: no symptoms reported All Other Systems: All systems neg except as marked - Patient's Past Medical History Patient History - Medical: Anxiety, Depression, GERD, Obesity, Osteoarthritis Patient History - Cardiac/Respiratory: Bronchitis, COPD, Hypertension Patient History - Cancer: No Hx of Cancer Patient History - Surgical Procedures: Appendectomy, Cholecystectomy, Colonoscopy, EGD, Total Knee Replacement, T & A Patient History - Other: None LMP (females 10-50): Menopausal - Family History Mother Family History - Medical: , Diabetes Type 2 Insulin Dependent Family History - Cardiac/Respiratory: History Unknown, Other Family History - Cancer: No pertinent family hx Father Family History - Medical: , Dementia, Depression, Other Family History - Cardiac/Respiratory: No pertinent hx Family History - Cancer: No pertinent family hx - Social History Living Situations: home Abuse History: No History of abuse Psych History: Hx of Anxiety, Hx of Depression Smoking Status: Never smoker Alcohol Use: none Drug Use: none - Immunizations Immunizations Up to Date: Yes Hx Pneumococcal Vaccination: No History of Influenza Vaccine: No Physical Exam - Physical Exam Narrative: The patient's lung sounds auscultated rales present. General Appearance: Present: wd/wn, alert, no apparent distress Head Exam: Present: normal inspection, no evidence of injury Eye Exam: Normal inspection: bilateral, PERRL: bilateral, EOMI: bilateral Ears, Nose, Throat: Present: normal ENT inspection, normal pharynx Neck: Present: normal inspection, nontender Respiratory: Present: no respiratory distress, no accessory muscle use, chest nontender, decreased breath sounds, rales Cardiovascular/Chest: Present: regular rate, rhythm, normal peripheral pulses Peripheral Pulses: N=norm/S=strong/W=weak/B=bound/A=absent: Dorsalis-pedis (R): Normal, Dorsalis-pedis (L): Normal Gastrointestinal/Abdominal: Present: normal bowel sounds, no organomegaly Back Exam: Present: normal inspection, normal range of motion, no CVA tenderness , no vertebral tenderness Extremity Exam: Present: normal range of motion, pedal edema, extremity edema Neurological Exam: Present: alert, oriented, normal mood/affect, no motor/ sensory deficits Skin Exam: Present: normal color, warm/dry Lymphatic Exam: Present: no adenopathy ED Progress - Results and Orders Patient's Lab Results:: I have reviewed the patient's lab results. Results and Orders: bnp >500 - Vital Signs Patient's Vital Signs:: I have reviewed the patient's vital signs. Vital Signs: Vital Signs 01/02/18 16:38 Temperature 36.3 C L Pulse Rate 68 Respiratory 16 Rate Blood Pressure 131/68 O2 Sat by Pulse 93 Oximetry - X-Ray X-Ray #1 X-Ray: chest Interpretation: Reviewed by me X-ray Comments: X-RAY REPORT [id number] RAD/Chest PA Lateral * Exam Date: 01/02/2018 17:10 Ordering Physician: Markell Smith History: Shortness of breath. Edema. Technique: PA and lateral views of the chest are compared to prior dated December 24, 2017 Findings: Diffuse hyperinflation of the lungs bilaterally with flattening of the hemidiaphragm. Scattered calcified granulomas. The lungs are clear bilaterally. There is no consolidation, pleural effusion or pneumothorax. Cardiac silhouette and pulmonary vasculature are normal. The osseous structures demonstrate degenerative changes of the spine and shoulders. IMPRESSION: NO ACUTE CARDIOPULMONARY ABNORMALITY IDENTIFIED. Electronically signed by Peyman Garza D.O.. Peyman Garza DO - Progress/Reassessment Chief Complaint: General Assessment Plan - Plan Plan: Patient is to be admitted for CHF. Departure Clinical Impression: CHF (congestive heart failure) Qualifiers: Heart failure type: unspecified Heart failure chronicity: unspecified Qualified Code(s): I50.9 - Heart failure, unspecified - Departure Disposition: Still a patient Condition: Fair
[2018-01-02 17:26] LABS: Hematocrit 44.9 % (37.0-47.0); Hemoglobin 14.5 gm/dL (12.5-16.0); Mean Cell Volume 103.5 fl (78-100); Mean Corpuscular Hemoglobin 33.4 pg (27-31); Mean Corpuscular Hgb Conc 32.3 g/dl (32-36); Mean Platelet Volume 10.3 fl (6.0-9.5); Neutrophil # 7.1 K/mm3 (1.3-6.0); Neutrophil % 64.9 % (42-75.0); Platelet Count 181 K/mm3 (150-450); Red Blood Count 4.34 M/mm3 (4.2-5.4); White Blood Count 10.9 K/mm3 (4.0-10.5)
[2018-01-02 17:47] LABS: ALT 25 U/L (19-67); AST 21 U/L (0-48); Albumin * 3.5 gm/dl (3.4-5.0); Alkaline Phosphatase * 71 U/L (50-170); Anion Gap 14.1 mmol/L (6.8-13.8); BNP * 565 pg/mL (5-550); Bilirubin, Total 0.5 mg/dL (0.0-1.1); Blood Urea Nitrogen 17 mg/dL (3-23); Calcium * 8.9 mg/dL (7.9-10.9); Carbon Dioxide 26.6 mmol/L (24-32.6); Chloride 102 mmol/L (97-106); Glucose * 124 mg/dL (70-110); Potassium 3.7 mmol/L (3.4-4.6); Sodium 139 mmol/L (132-142); Total Protein 6.5 gm/dL (6.2-8.2); Troponin I Less than 0.017 ng/ml (0.00-0.10)
[2018-01-02] MEDS ORDERED: FUROSEMIDE 10 MG/ML VIAL IV ONE (18:09)
[2018-01-02] MEDS ORDERED: FUROSEMIDE 10 MG/ML VIAL ONE (18:11)
--- NOTE | 2018-01-02 20:26 | HP ---
Chief Complaint - Chief Complaint Date of Service: 01/02/18 Time of Service: 20:25 Chief Complaint: " SOB, increased swelling". Source of HPI- Pt; unreliable, ERP report. History of Present Illness: Mrs. Smart is a 77-yr-old [place] pt of Dr. Katarina Cervantes with a PMH of: Anxiety, Asthma, Depression, GERD, HTN, HLD, OCD & Panic Disorder. Pt appears fatigued and drifts easily into sleep with conversation. She is able to state that the reason she came to the [facility] ER was because her [facility] nurse felt she had increasing leg swelling. She also felt SOB, but it begun in the morning. She denies coughing, fever & chills. At the ED CBC ,BMP, Troponin were in the NRs. BNP--> 565. The CXR did not have any acute cardiopulmonary findings. On physical exam, she is noted to have generalized swelling and has FELIX. She had been given Lasix at the ED which did not yield much urine output and her Dyspnea was unrelieved. She will be admitted under observation due to signs of Acute Heart Failure and will need additional diuretics. - Patient's Past Medical History Patient History - Medical: Anxiety, Depression, GERD, Obesity, Osteoarthritis Patient History - Cardiac/Respiratory: Bronchitis, COPD, Hypertension Patient History - Cancer: No Hx of Cancer Patient History - Surgical Procedures: Appendectomy, Cholecystectomy, Colonoscopy, EGD, Total Knee Replacement, T & A Patient History - Other: None LMP (females 10-50): Menopausal - Family History Mother Family History - Medical: , Diabetes Type 2 Insulin Dependent Family History - Cardiac/Respiratory: History Unknown, Other Family History - Cancer: No pertinent family hx Father Family History - Medical: , Dementia, Depression, Other Family History - Cardiac/Respiratory: No pertinent hx Family History - Cancer: No pertinent family hx - Social History Living Situations: spouse Abuse History: No History of abuse Psych History: Hx of Anxiety, Hx of Depression Smoking Status: Never smoker Have you smoked in the past 12 months: No Alcohol Use: none Drug Use: none - Immunizations Immunizations Up to Date: Yes Hx Pneumococcal Vaccination: No History of Influenza Vaccine: No Review Of Systems (GEN) - Review of Systems Generalized/Overall Review: Absent: Weakness, Chills, Fever, Malaise EENTM: Absent: Eye Pain, Blurred Vision, Tearing Respiratory: Present: Shortness of Breath. Absent: Cough, Orthopnea Cardiac: Absent: Chest Pain, Edema, Palpitations Abdominal: Absent: Nausea, Vomiting, Hematemesis, Constipation Genitourinary: Absent: Burning, Itching, Urgency, Frequency Musculoskeletal: Absent: Joint Pain, Back Pain, Joint Swelling Neurological: Absent: Headache, Anxiety, Depressed, Emotional Problems, Numbness Skin: Absent: Dryness, Lesions Endocrine: Absent: Intolerance to Cold, Increased Thirst Misc: All systems neg except as marked Immunizations: IMMUNIZATION HX Immunizations Up to Date Yes History of Influenza Vaccine No Hx Pneumococcal Vaccination No Allergies/Adverse Reactions: Allergies Allergy/AdvReac Type Severity Reaction Status Date / Time Sulfa (Sulfonamide Allergy Mild Hives Verified 01/02/18 19:21 Antibiotics) [facility] AdvReac Mild RASH Verified 01/02/18 19:21 Penicillins AdvReac Mild RASH Verified 01/02/18 19:21 Home Medications: HOME MEDICATIONS Aspirin [Philipp Chewable] 81 mg PO HS 01/02/18 [Last Taken Unknown] Cholecalciferol (Vitamin D3) [Vitamin D] 2,000 unit PO QAM 01/02/18 [Last Taken Unknown] Escitalopram Oxalate [Lexapro] 20 mg PO QAM 01/02/18 [Last Taken Unknown] Gabapentin 800 mg PO TID 01/02/18 [Last Taken Unknown] Glucosamine/D3/Boswellia [place] [Osteo Bi-Flex Tablet] 1 each PO BID 01/02/18 [ Last Taken Unknown] LORazepam [Ativan] 1 mg PO TID 01/02/18 [Last Taken Unknown] Losartan Potassium [Cozaar] 100 mg PO QAM 01/02/18 [Last Taken Unknown] Metoprolol Succinate [Toprol Xl] 100 mg PO QAM 01/02/18 [Last Taken Unknown] Mirabegron [Myrbetriq] 50 mg PO QAM 01/02/18 [Last Taken Unknown] Mirtazapine 7.5 mg PO 01/02/18 [Last Taken Unknown] Saccharomyces Boulardii [Florastor] 250 mg PO QAM 01/02/18 [Last Taken Unknown] Valbenazine Tosylate [Ingrezza] 40 mg PO .NOON 01/02/18 [Last Taken Unknown] Exam - Exam Vital Signs: Vital Signs - Last Taken Temp 36.8 C 01/02/18 19:39 Pulse 62 01/02/18 19:39 Resp 18 01/02/18 19:39 BP 161/60 01/02/18 19:39 Pulse Ox 91 01/02/18 19:39 Constitutional: Present: Alert, No distress, Elderly, Morbidly obese ENT Exam: Present: normal ENT inspection, hearing grossly normal Eye Exam: bilateral eye: normal inspection, PERRL Neck: Present: non-tender, full range of motion, supple Back Exam: Present: normal inspection, no CVA tenderness Breasts: Present: Exam deferred Respiratory: Present: No rales, No wheezing Cardiovascular/Chest: Present: normal peripheral pulses, regular rate, rhythm, edema Abdomen: Present: Normal bowel sounds, soft, nontender, obese /Rectal: Present: Exam deferred Extremity: Present: lower extremity edema Skin Exam: Present: warm/dry, no cyanosis Lymphatic: Present: no adenopathy Neurologic: Present: depressed affect Appearance: Present: impaired insight Eye contact: Present: decreased rate of speech Thoughts: Present: no apparent hallucination Diagnostic Studies: Laboratory Results WBC 10.9 K/mm3 (4.0-10.5) H 01/02/18 17:23 RBC 4.34 M/mm3 (4.2-5.4) 01/02/18 17:23 Hgb 14.5 gm/dL (12.5-16.0) 01/02/18 17:23 Hct 44.9 % (37.0-47.0) 01/02/18 17:23 MCV 103.5 fl (78-100) H 01/02/18 17:23 MCH 33.4 pg (27-31) H 01/02/18 17:23 MCHC 32.3 g/dl (32-36) 01/02/18 17:23 RDW 14.0 % (11.5-14.0) 01/02/18 17:23 Plt Count 181 K/mm3 (150-450) 01/02/18 17:23 MPV 10.3 fl (6.0-9.5) H 01/02/18 17:23 Immature Gran % (Auto) 0.30 % (0.001-0.429) 01/02/18 17:23 Immature Gran # (Auto) 0.03 K/mm3 (0.000-0.0310) 01/02/18 17:23 Neutrophils % 64.9 % (42-75.0) 01/02/18 17:23 Lymphocytes % 25.0 % (20-51) 01/02/18 17:23 Monocytes % 6.9 % (0.0-9) 01/02/18 17:23 Eosinophils % 2.6 % (0.0-3.0) 01/02/18 17:23 Basophils % 0.3 % (0.0-1.0) 01/02/18 17:23 Nucleated RBC % 0.0 k/mm3 (0-1) 01/02/18 17:23 Neutrophils # 7.1 K/mm3 (1.3-6.0) H 01/02/18 17:23 Lymphocytes # 2.73 k/mm3 (1.5-3.5) 01/02/18 17:23 Monocytes # 0.8 k/mm3 (0.0-1.0) 01/02/18 17:23 Eosinophils # 0.3 k/mm3 (0.0-0.7) 01/02/18 17:23 Absolute Basophils 0.0 k/mm3 (0.0-0.1) 01/02/18 17:23 Sodium 139 mmol/L (132-142) 01/02/18 17:23 Plasma Sodium 139 mmol/L (130-142) 01/02/18 17:23 Potassium 3.7 mmol/L (3.4-4.6) 01/02/18 17:23 Chloride 102 mmol/L (97-106) 01/02/18 17:23 Carbon Dioxide 26.6 mmol/L (24-32.6) 01/02/18 17:23 Anion Gap 14.1 mmol/L (6.8-13.8) H 01/02/18 17:23 BUN 17 mg/dL (3-23) 01/02/18 17:23 Creatinine 0.81 mg/dL (0.4-1.4) 01/02/18 17:23 Est GFR (Non-Af Amer) 73 mL/min (60-130) 01/02/18 17:23 BUN/Creatinine Ratio 21.0 (9.0-21.6) 01/02/18 17:23 Random Glucose 124 mg/dL (70-110) H 01/02/18 17:23 Calcium 8.9 mg/dL (7.9-10.9) 01/02/18 17:23 Calcium Adj for Albumin 9.0 mg/dL (8.4-10.2) 01/02/18 17:23 Total Bilirubin 0.5 mg/dL (0.0-1.1) 01/02/18 17:23 AST 21 U/L (0-48) 01/02/18 17:23 ALT 25 U/L (19-67) 01/02/18 17:23 Alkaline Phosphatase 71 U/L (50-170) 01/02/18 17:23 Troponin I Less than 0.017 ng/ml (0.00-0.10) 01/02/18 17: B-Natriuretic Peptide 565 pg/mL (5-550) H 01/02/18 17:23 Total Protein 6.5 gm/dL (6.2-8.2) 01/02/18 17: Albumin 3.5 gm/dl (3.4-5.0) 01/02/18 17:23 Assessment/Plan - Assessment/Plan (1) Acute heart failure Assessment: Pt is demonstrating early signs of AHF noted with Dyspnea, Fatigue, Generalized edema and elevated BNP. No pulmonary edema on the CXR. She will need an Echocardiogram to assess for valvular disease and systolic/dyastolic function . She will be diuresed with Lasix 80mg and will consider starting her on a daily dose at discharge. The EKG/troponin were negative for ACS/SD. Monitor 1/O, daily weight, electrolytes and Provide CHF teaching. Problem: Acute Qualifiers: Heart failure type: diastolic Qualified Code(s): I50.31 - Acute diastolic ( congestive) heart failure (2) Depression Problem: Chronic (3) Anxiety Problem: Chronic (4) GERD (gastroesophageal reflux disease) Problem: Chronic (5) HTN (hypertension) Problem: Chronic Qualifiers: Hypertension type: essential hypertension Qualified Code(s): I10 - Essential (primary) hypertension
[2018-01-02] MEDS ORDERED: ASPIRIN 81 MG TAB.CHEW PO SCH (21:00)
[2018-01-02] MEDS ORDERED: FUROSEMIDE 10 MG/ML VIAL IV SCH (21:00)
[2018-01-02] MEDS ORDERED: MIRTAZAPINE 15 MG TABLET PO SCH (21:00)
[2018-01-02] MEDS ORDERED: POTASSIUM CHLORIDE 20 MEQ TABLET.SA PO ONE (21:15)
[2018-01-02] MEDS: LORazepam 1 MG TABLET PO SCH (21:40)
[2018-01-02] MEDS: GABAPENTIN 400 MG CAPSULE PO SCH (21:41)
[2018-01-03] MEDS ORDERED: FUROSEMIDE 10 MG/ML VIAL IV ONE ×2 (00:45→13:25)
[2018-01-03 05:52] LABS: Hematocrit 47.4 % (37.0-47.0); Hemoglobin 15.2 gm/dL (12.5-16.0); Mean Cell Volume 102.6 fl (78-100); Mean Corpuscular Hemoglobin 32.9 pg (27-31); Mean Corpuscular Hgb Conc 32.1 g/dl (32-36); Mean Platelet Volume 10.7 fl (6.0-9.5); Neutrophil # 5.6 K/mm3 (1.3-6.0); Neutrophil % 52.1 % (42-75.0); Platelet Count 215 K/mm3 (150-450); Red Blood Count 4.62 M/mm3 (4.2-5.4); Red Cell Distribution Width 14.4 % (11.5-14.0); White Blood Count 10.7 K/mm3 (4.0-10.5)
[2018-01-03 06:08] LABS: Anion Gap 13.7 mmol/L (6.8-13.8); BUN/Creatinine Ratio 19.2 (9.0-21.6); Calcium * 9.3 mg/dL (7.9-10.9); Carbon Dioxide 29.1 mmol/L (24-32.6); Potassium 4.8 mmol/L (3.4-4.6)
[2018-01-03] MEDS: GABAPENTIN 400 MG CAPSULE PO SCH ×3 (08:27→16:34)
[2018-01-03] MEDS: LORazepam 1 MG TABLET PO SCH ×3 (08:29→16:34)
[2018-01-03] MEDS ORDERED: SACCHAROMYCES BOULARDII 250 MG CAPSULE PO SCH (09:00)
[2018-01-03] MEDS ORDERED: LOSARTAN POTASSIUM 50 MG TABLET PO SCH (09:00)
[2018-01-03] MEDS ORDERED: CHOLECALCIFEROL 1,000 UNIT CAPSULE PO SCH (09:00)
[2018-01-03] MEDS ORDERED: Mirabegron [Myrbetriq] 50 MG PO SCH (09:00)
[2018-01-03] MEDS ORDERED: ESCITALOPRAM OXALATE 10 MG TAB PO SCH (09:00)
[2018-01-03] MEDS ORDERED: METOPROLOL SUCCINATE 100 MG TABLET.SA PO SCH (09:00)
[2018-01-03] MEDS ORDERED: ACETAMINOPHEN 500 MG TABLET PO PRN (09:45)
[2018-01-03] MEDS ORDERED: Valbenazine Tosylate [Ingrezza] 40 MG PO SCH (12:00)
--- NOTE | 2018-01-03 13:19 | PN ---
Subjective - Date and Time Seen Date: 01/03/18 Time: 10:00 Subjective Narrative: Mrs. Smart presented with warm overload with edema and shortness of breath. She has been diuresed with 80 mg of Lasix. Before the Lasix was given she had a straight cath done that yielded about 800 mL of urine. She has continued to have good output. Her swelling has gone down although her hands are still puffy and stiff. She doesn't have much edema in the lower extremities today. The neck veins are not distended but or hepatojugular reflex is still positive at about 60. Objective - Review of Systems Generalized/Overall Review: Reports: Weakness, Malaise, Fatigue. Denies: Chills , Fever, Diaphoresis EENTM: Reports: No Symptoms Reported Respiratory: Reports: Cough, Shortness of Breath, Orthopnea, Wheezing Cardiac: Reports: No Symptoms Reported Abdominal: Reports: No Symptoms Reported. Denies: Nausea, Vomiting, Hematemesis , Abdominal Pain Genitourinary Symptoms: Reports: No Symptoms Reported Musculoskeletal Complaints: Reports: Joint Pain, Muscle Pain Neurological: Reports: No Symptoms Reported, Headache, Anxiety, Depressed. Denies: Numbness, Tingling Skin: Reports: No Symptoms Reported, Dryness Endocrine: Reports: No Symptoms Reported, Intolerance to Cold - Vitals Vitals: Last Vital Signs Temp 36.6 C 01/03/18 10:45 Pulse 71 01/03/18 10:45 Resp 20 01/03/18 10:45 BP 179/68 01/03/18 10:45 Pulse Ox 93 01/03/18 10:45 - Abnormal Lab Findings Abnormal Lab Findings: Abnormal Lab Results 01/03/18 01/03/18 Range/Units 05:05 05:05 WBC 10.7 H (4.0-10.5) K/mm3 Hct 47.4 H (37.0-47.0) % MCV 102.6 H (78-100) fl MCH 32.9 H (27-31) pg RDW 14.4 H (11.5-14.0) % MPV 10.7 H (6.0-9.5) fl Eosinophils % 4.7 H (0.0-3.0) % Lymphocytes # 3.66 H (1.5-3.5) k/mm3 Potassium 4.8 H D (3.4-4.6) mmol/L Est GFR (Non-Af Amer) 58 L D (60-130) mL/min - Exam Constitutional: Present: Alert, Oriented x3, Cooperative, Well developed, Well nourished, Elderly, Obese ENT Exam: Present: normal ENT inspection, hearing grossly normal, pharynx normal , TMs normal Neck: Present: non-tender, limited range of motion Breasts: Present: Exam deferred, Nontender, Discharge Respiratory: Present: chest non-tender, lungs clear, normal breath sounds, no respiratory distress Cardiovascular/Chest: Present: normal peripheral pulses, no chest tenderness, no edema, no gallop Abdomen: Present: Normal bowel sounds, soft, nontender, nondistended /Rectal: Present: Other - Urinary bladder is distended Skin Exam: Present: pallor Lymphatic: Present: no adenopathy Neurologic: 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 - Problems/Diagnosis (1) CHF (congestive heart failure) Problem: Acute Qualifiers: Heart failure type: unspecified Heart failure chronicity: unspecified Qualified Code(s): I50.9 - Heart failure, unspecified (2) Acute urinary retention Problem: Acute
--- NOTE | 2018-01-03 17:10 | DS ---
(1) CHF (congestive heart failure) Problem: Acute Qualifiers: Heart failure type: unspecified Heart failure chronicity: acute Qualified Code(s): I50.9 - Heart failure, unspecified Description of Stay: Kenisha Smart is a 77-year-old female brought to the emergency room because of increased swelling and increased shortness of breath. She was diuresed twice and has given up about 400 mL of urine each time. There are no other complications. Her swelling is down quite a lot. She still has some hand puffiness and stiffness since morning. We have a little better this afternoon. He on admission was 550. On exam this morning she still has some mild passive liver congestion with a positive HJR at 60. Just now she was getting up off the toilet and slipped and bumped the back of her head. No apparent injury. Three-way orthostatic blood pressures: Supine BP is 151/65 with a pulse of 65 sitting blood pressure 152/70 and pulse of 67 standing pressure 139/73 and pulse of 71 she will be discharged home Procedures Performed: none Discharge Location: Home Disposition: Home self-care Condition: Fair Discharge Activity: Activity as tolerated Discharge Diet: General/regular food, Low salt Referrals: Katarina Cervantes MD [Primary Care Provider] - Prescriptions (Any new or edited meds): Furosemide 20 mg PO 3XW #30 tablet Complete Home Medications List: Complete Home Medication List: Aspirin [Philipp Chewable Aspirin] 81 mg PO HS 01/02/18 Cholecalciferol (Vitamin D3) [Vitamin D3] 2,000 unit PO QAM 01/02/18 Escitalopram Oxalate [Lexapro] 20 mg PO QAM 01/02/18 Gabapentin 800 mg PO TID 01/02/18 Glucosamine/D3/Boswellia [place] [Osteo Bi-Flex Tablet] 1 each PO BID 01/02/18 LORazepam [Ativan] 1 mg PO TID 01/02/18 Losartan Potassium [Cozaar] 100 mg PO QAM 01/02/18 Metoprolol Succinate [Toprol Xl] 100 mg PO QAM 01/02/18 Mirabegron [Myrbetriq] 50 mg PO QAM 01/02/18 Mirtazapine 7.5 mg PO HS 01/02/18 Saccharomyces Boulardii [Florastor] 250 mg PO QAM 01/02/18 Valbenazine Tosylate [Ingrezza] 40 mg PO .NOON 01/02/18 Acetaminophen [Tylenol] 500 mg PO Q6H PRN tablet 01/03/18 Furosemide 20 mg PO 3XW #30 tablet 01/03/18
[2018-01-03 19:26] VITALS: BP 125/51
== END 2018-01-03 19:48 | disposition home or self-care (01) ==
LOC: ER 16:17 → UNDOADMIN 18:12 → MS 18:12 → INTOOBSV 18:12
PROVIDERS: ADMIT Family Medicine; ATTEND Family Medicine
DX: R33.9 Retention of urine, unspecified; Z68.38 Body mass index [BMI] 38.0-38.9, adult; I10 Essential (primary) hypertension; I50.9 Heart failure, unspecified; M19.90 Unspecified osteoarthritis, unspecified site; J44.9 Chronic obstructive pulmonary disease, unspecified
CPT/HCPCS: 36415; 71020; 71046; 80048; 80053; 83519; 83880; 84484; 85025; 93005; 96374; 96376; 99285; G0378

== ENCOUNTER 2018-12-22 18:09 | Inpatient (IN) ==
[2018-12-22 18:34] LABS: Venous Blood Gas HCO3 30.8 mmol/L (22.0-29.0); Venous Blood Gas pH 7.43 (7.32-7.43)
[2018-12-22 18:37] LABS: Hematocrit 48.4 % (37.0-47.0); Hemoglobin 15.8 gm/dL (12.5-16.0); Mean Cell Volume 106.6 fl (78-100); Mean Corpuscular Hemoglobin 34.8 pg (27-31); Mean Corpuscular Hgb Conc 32.6 g/dl (32-36); Mean Platelet Volume 9.9 fl (8-12.5); Platelet Count 200 K/mm3 (150-450); Red Blood Count 4.54 M/mm3 (4.2-5.4); Red Cell Distribution Width 13.6 % (11.5-14.0); White Blood Count 20.3 K/mm3 (4.0-10.5)
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
[2018-12-22] MEDS ORDERED: NORMAL SALINE 1,000 ML IV ONE (18:43)
[2018-12-22 18:44] LABS: Prothrombin Time (Patient) 11.2 Seconds (9.1-10.7)
[2018-12-22 18:45] LABS: INR 1.14 INR (0.92-1.08); Partial Thrombolplastin Time 23.1 Seconds (24-32)
[2018-12-22 18:46] LABS: Total Cells Counted 100
[2018-12-22 18:54] LABS: ALT 39 U/L (19-67); AST 21 U/L (0-48); Albumin * 3.6 gm/dl (3.4-5.0); Alkaline Phosphatase * 76 U/L (50-170); Anion Gap 13.8 mmol/L (6.8-13.8); BUN/Creatinine Ratio 16.7 (9.0-21.6); Bilirubin, Total 1.1 mg/dL (0.0-1.1); Blood Urea Nitrogen 17 mg/dL (3-23); Ca. Corrected For Albumin 9.6 mg/dL (8.4-10.2); Calcium * 9.6 mg/dL (7.9-10.9); Carbon Dioxide 30.9 mmol/L (24-32.6); Chloride 98 mmol/L (97-106); Glucose * 126 mg/dL (70-110); Magnesium 2.4 mg/dL (1.2-2.8); Potassium 3.7 mmol/L (3.4-4.6); Sodium 139 mmol/L (132-142); Total Protein 6.8 gm/dL (6.2-8.2)
[2018-12-22 18:55] LABS: Troponin I Less than 0.017 ng/mL (0.00-0.10)
[2018-12-22 19:01] LABS: Lymphocyte 18 % (20-51); Monocyte 8 % (0-9); Neutrophil 74 % (42-75); Platelet Estimate Normal (NORMAL); RBC Morphology Normal (NORMAL)
[2018-12-22] MEDS ORDERED: cefTRIAXone SODIUM 1,000 MG/100 ML BAG IV ONE (19:37)
[2018-12-22 19:44] LABS: Urine Bilirubin Negative (NEGATIVE); Urine Blood Negative /ul (NEGATIVE); Urine Ketone Negative (NEGATIVE); Urine Nitrite Negative (NEGATIVE); Urine Protein Negative (NEGATIVE); Urine Specific Gravity 1.015 SP.GR. (1.005-1.010); Urine Urobilinogen Normal (NORMAL)
[2018-12-22 19:50] LABS: Urine Appearance Clear (CLEAR); Urine Bacteria TRACE; Urine Color Yellow; Urine Hyaline Cast TRACE /LPF; Urine Mucus TRACE; Urine RBC None Seen /hpf (0-5); Urine WBC None Seen /hpf (0-5)
[2018-12-23] MEDS ORDERED: ACETAMINOPHEN 325 MG TABLET PO PRN (08:17)
--- NOTE | 2018-12-23 08:50 | HP ---
Chief Complaint - Chief Complaint Date of Service: 12/23/18 Time of Service: 08:20 Chief Complaint: fell History of Present Illness: Kenisha Smart is a 78-year-old white female with past medical history of anxiety depression, panic attacks, COPD, hypertension, CHF who was admitted on 12/22/2018 because of main complaint she fell. 9 days prior to admission the patient started having shortness of breath associated with wheezing and she went to our walk-in clinic where she was diagnosed with acute sinusitis and bronchitis and was started on prednisone and doxycycline. She has been coughing yellowish phlegm and admits to having night sweats for the last few days. She also started having some loose stools occurring about 2 times a day for the last 2 days. She became more weak and last night fell while trying to go to her bed. She denied any chest pain, palpitations, diaphoresis, loss of consciousness, and denied tripping on anything on the floor. She did state she just felt dizzy. She was then brought to our emergency room where she was found to have a leukocytosis of 20,000, lactic acidosis, and a chest x-ray with bilateral basilar atelectasis but cannot rule out an infection. The patient also admits that for the last few days she has been choking on her meals. She will be admitted for further treatment and evaluation of her likely aspiration pneumonia with acute exacerbation of COPD that has failed outpatient treatment. Medical History (Updated 12/23/18 @ 08:49 by Katarina Cervantes MD) Head injury (Acute) Fall (Acute) Musculoskeletal neck pain (Acute) IFG (impaired fasting glucose) (Acute) Rash (Acute) Poison jesus dermatitis (Acute) GERD (gastroesophageal reflux disease) (Chronic) Dyspnea (Acute) Lactic acidosis (Acute) Leukocytosis (Acute) Obsessive compulsive disorder (or obsessive compulsive neurosis) (Chronic) Anxiety and depression (Chronic) Acute asthma exacerbation (Acute) Depression (Chronic) Hypertension (Chronic) Panic disorder (Chronic) Low O2 saturation (Resolved) Asthma (Chronic) Urge incontinence (Acute) COPD (chronic obstructive pulmonary disease) (Chronic) COPD exacerbation (Acute) Asthma (Chronic) GERD (gastroesophageal reflux disease) (Chronic) Failure of outpatient treatment (Acute) Depression (Chronic) Anxiety (Chronic) Urinary incontinence due to cognitive impairment (Acute) Urinary incontinence (Chronic) Neuroleptic-induced tardive dyskinesia (Chronic) Dislocation, shoulder, inferior (Resolved) UTI (urinary tract infection) (Resolved) Weakness (Chronic) Hypoxic (Resolved) Discharge planning issues (Acute) CHF (congestive heart failure) (Chronic) Acute heart failure (Acute) HTN (hypertension) (Chronic) Acute urinary retention (Acute) Chest pain (Acute) Anxiety Onset Date: ~08/16/11 Asthma Onset Date: Unknown Colonic polyp Onset Date: Unknown personal history of Congestive heart failure Onset Date: Unknown Depression Onset Date: Unknown Diarrhea, unspecified Onset Date: Unknown GERD (gastroesophageal reflux disease) Onset Date: Unknown Hyperglycemia Onset Date: Unknown Hypertension Onset Date: Unknown Insomnia Onset Date: ~08/24/11 Lower extremity edema Onset Date: ~01/31/14 OCD (obsessive compulsive disorder) Onset Date: ~04/29/14 Osteoarthritis Onset Date: Unknown Panic disorder Onset Date: Unknown Rhinitis, allergic Onset Date: Unknown Salivary gland disease Onset Date: ~01/31/14 Urinary incontinence Onset Date: ~01/08/13 Surgical History: Surgical History (Updated 12/23/18 @ 08:49 by Katarina Cervantes MD) Cholecystectomy planned Onset Date: ~02/2005 [facility]-Lap Colonoscopy planned Onset Date: ~201202/15/2005 Indira-2 polyps normal, 04/12/2013 CT colonoscopy History of appendectomy Onset Date: ~1969 History of biopsy Onset Date: ~03/27/07 stereotactic mammotome biopsy- fibrotic change of left breast including ductal hyperplasia, sclerosing adenosis, apocrine metaplasia, no infiltrating carcinoma or atypical hyperplasia identified History of esophagogastroduodenoscopy (EGD) Onset Date: ~02/15/05 Indira-normal Status post right knee replacement Onset Date: ~01/14/07 Greg Tonsillectomy planned Onset Date: Unknown as a child Family History: Family History (Updated 03/19/18 @ 16:11 by Citlaly Chung RN) Brother , stillborn No problems noted. Father , age 75-perforated colon Depression Mother , age 70 during heart surgery Diabetes holes in heart Social History: Patient Lives/Resources Home Utilized Occupation Retired Preferred Language Latvian Do you have any yazdanism or Yes: Congregation cultural preference? Smoking Status Never smoker Have you smoked in the past 12 No months Do you dip or chew tobacco No Abuse History No History of abuse Psych History Hx of Anxiety,Hx of Depression Alcohol Use none Drug Use none (Last Updated 12/14/18 @ 16:20 by Krystyna Figueredo DNP) No Social History Section defined Review Of Systems (GEN) - Review of Systems Generalized/Overall Review: Present: Weakness, Chills. Absent: Fever, Weight loss EENTM: Absent: Blurred Vision Respiratory: Present: Cough, Shortness of Breath, Wheezing. Absent: Orthopnea Cardiac: Absent: Chest Pain, Edema, Palpitations Abdominal: Present: Other - loose stools. Absent: Nausea, Vomiting, Constipatio n Genitourinary: Absent: Urgency, Frequency Musculoskeletal: Present: Back Pain Neurological: Present: Anxiety, Depressed. Absent: Headache Skin: Absent: Lesions, Rash Endocrine: Absent: Intolerance to Cold, Intolerance to Heat Immunizations: IMMUNIZATION HX Immunizations Up to Date Yes History of Influenza Vaccine No Hx Pneumococcal Vaccination Yes Allergies/Adverse Reactions: Allergies Allergy/AdvReac Type Severity Reaction Status Date / Time Sulfa (Sulfonamide Allergy Mild Hives Verified 12/23/18 07:40 Antibiotics) [facility] AdvReac Mild RASH Verified 12/23/18 07:40 Penicillins AdvReac Mild RASH Verified 12/23/18 07:40 Home Medications: HOME MEDICATIONS Aspirin [Philipp Chewable Aspirin] 81 mg PO HS 01/02/18 [Last Taken Unknown] compression stocking, knee high, regular length, small See Dose Instructions .ROUTE .MEDSUPPLY #12 ea 03/19/18 [Last Taken Unknown] mirtazapine 7.5 mg tablet 7.5 mg PO HS 03/31/18 [Last Taken Unknown] valbenazine 40 mg capsule 40 mg PO DAILY@1200 cap 03/31/18 [Last Taken Unknown] furosemide 20 mg tablet 20 mg PO DAILY #90 tab 05/04/18 [Last Taken Unknown] cholecalciferol (vitamin D3) 2,000 unit capsule 2,000 unit PO QAM #90 cap 06/02/18 [Last Taken Unknown] Gabapentin 800 mg PO TID 07/26/18 [Last Taken Unknown] Saccharomyces boulardii 250 mg capsule 250 mg PO DAILY #90 cap 09/25/18 [Last Taken Unknown] losartan 100 mg tablet 100 mg PO DAILY #90 tab 09/25/18 [Last Taken Unknown] mirabegron ER 50 mg tablet,extended release 24 hr 50 mg PO QAM #90 tab 09/25/18 [Last Taken Unknown] duloxetine 30 mg capsule,delayed release See Rx Instructions PO BID 10/02/18 [Last Taken Unknown] lorazepam 1 mg tablet 1 mg PO QID tab 10/02/18 [Last Taken Unknown] metoprolol succinate ER 200 mg tablet,extended release 24 hr 200 mg PO HS tab 10/02/18 [Last Taken Unknown] theanine 50 mg disintegrating tablet 200 mg PO HS tab 10/02/18 [Last Taken Unknown] Magnesium Oxide [Magnesium] 250 mg PO DAILY 12/22/18 [Last Taken Unknown] Exam - Exam Vital Signs: Vital Signs - Last Taken Temp 36.6 C 12/23/18 04:00 Pulse 106 H 12/23/18 04:00 Resp 20 12/23/18 04:00 BP 109/52 12/23/18 04:00 Pulse Ox 95 12/23/18 04:00 Constitutional: Present: Alert, Oriented x3, Cooperative, Mild distress, Obese ENT Exam: Present: hearing grossly normal Eye Exam: bilateral eye: normal inspection, PERRL, EOMI Neck: Present: supple Respiratory: Present: no accessory muscle use, decreased breath sounds, wheezing. Absent: rales Cardiovascular/Chest: Present: regular rate, rhythm, no JVD, no murmur, tachycardia Abdomen: Present: Normal bowel sounds, soft, nontender, obese Extremity: Present: no pedal edema, no calf tenderness Diagnostic Studies: Abnormal Lab Results 12/22/18 12/22/18 12/22/18 Range/Units 18:30 18:30 18:30 WBC 20.3 H (4.0-10.5) K/mm3 Hct 48.4 H (37.0-47.0) % MCV 106.6 H (78-100) fl MCH 34.8 H (27-31) pg Lymphocytes % (Manual) 18 L (20-51) % Neutrophils # (Manual) 15.0 H (1.3-6.0) K/mm3 Lymphocytes # (Manual) 3.7 H (1.5-3.5) k/mm3 Monocytes # (Manual) 1.6 H (0.0-1.0) k/mm3 PT 11.2 H (9.1-10.7) Seconds INR (Anticoag Therapy) 1.14 H (0.92-1.08) INR PTT ([place]) 23.1 L (24-32) Seconds D-Dimer (0.19-0.49) ug/mL pCO2 (32.0-45.0) mmHg HCO3 (22.0-29.0) mmol/L Total CO2 (22.0-26.0) mmol/L Base Excess (-2.0-3.0) mmol/L VBG O2 Saturation (94.0-98.0) % Est GFR (Non-Af Amer) 56 L (60-130) mL/min Random Glucose 126 H (70-110) mg/dL Lactic Acid, Venous (0.4-2.0) mmol/L 12/22/18 12/22/18 12/22/18 Range/Units 18:30 18:30 18:30 WBC (4.0-10.5) K/mm3 Hct (37.0-47.0) % MCV (78-100) fl MCH (27-31) pg Lymphocytes % (Manual) (20-51) % Neutrophils # (Manual) (1.3-6.0) K/mm3 Lymphocytes # (Manual) (1.5-3.5) k/mm3 Monocytes # (Manual) (0.0-1.0) k/mm3 PT (9.1-10.7) Seconds INR (Anticoag Therapy) (0.92-1.08) INR PTT ([place]) (24-32) Seconds D-Dimer 0.62 H (0.19-0.49) ug/mL pCO2 47.0 H (32.0-45.0) mmHg HCO3 30.8 H (22.0-29.0) mmol/L Total CO2 32.2 H (22.0-26.0) mmol/L Base Excess 5.4 H (-2.0-3.0) mmol/L VBG O2 Saturation 58.4 L (94.0-98.0) % Est GFR (Non-Af Amer) (60-130) mL/min Random Glucose (70-110) mg/dL Lactic Acid, Venous 2.2 H* (0.4-2.0) mmol/L Laboratory Results WBC 20.3 K/mm3 (4.0-10.5) H 12/22/18 18:30 RBC 4.54 M/mm3 (4.2-5.4) 12/22/18 18:30 Hgb 15.8 gm/dL (12.5-16.0) 12/22/18 18:30 Hct 48.4 % (37.0-47.0) H 12/22/18 18:30 MCV 106.6 fl (78-100) H 12/22/18 18:30 MCH 34.8 pg (27-31) H 12/22/18 18:30 MCHC 32.6 g/dl (32-36) 12/22/18 18:30 RDW 13.6 % (11.5-14.0) 12/22/18 18:30 Plt Count 200 K/mm3 (150-450) 12/22/18 18:30 MPV 9.9 fl (8-12.5) 12/22/18 18:30 74 % (42-75) 12/22/18 18:30 18 % (20-51) L 12/22/18 18:30 8 % (0-9) 12/22/18 18:30 15.0 K/mm3 (1.3-6.0) H 12/22/18 18:30 3.7 k/mm3 (1.5-3.5) H 12/22/18 18:30 1.6 k/mm3 (0.0-1.0) H 12/22/18 18:30 Normal (NORMAL) 12/22/18 18:30 RBC Morphology Normal (NORMAL) 12/22/18 18:30 PT 11.2 Seconds (9.1-10.7) H 12/22/18 18:30 INR (Anticoag Therapy) 1.14 INR (0.92-1.08) H 12/22/18 18:30 PTT ([place]) 23.1 Seconds (24-32) L 12/22/18 18:30 0.62 ug/mL (0.19-0.49) H 12/22/18 18:30 pCO2 47.0 mmHg (32.0-45.0) H 12/22/18 18:30 pO2 29.9 mmHg (23.3-35.1) 12/22/18 18:30 HCO3 30.8 mmol/L (22.0-29.0) H 12/22/18 18:30 Total CO2 32.2 mmol/L (22.0-26.0) H 12/22/18 18:30 Base Excess 5.4 mmol/L (-2.0-3.0) H 12/22/18 18:30 ABG pH 7.43 (7.32-7.43) 12/22/18 18:30 VBG O2 Saturation 58.4 % (94.0-98.0) L 12/22/18 18:30 Sodium 139 mmol/L (132-142) 12/22/18 18:30 139 mmol/L (130-142) 12/22/18 18:30 Potassium 3.7 mmol/L (3.4-4.6) 12/22/18 18:30 Chloride 98 mmol/L (97-106) 12/22/18 18:30 Carbon Dioxide 30.9 mmol/L (24-32.6) 12/22/18 18:30 13.8 mmol/L (6.8-13.8) 12/22/18 18:30 BUN 17 mg/dL (3-23) 12/22/18 18:30 1.02 mg/dL (0.4-1.4) 12/22/18 18:30 Est GFR (Non-Af Amer) 56 mL/min (60-130) L 12/22/18 18:30 16.7 (9.0-21.6) 12/22/18 18:30 126 mg/dL (70-110) H 12/22/18 18:30 1.3 mmol/L (0.4-2.0) 12/22/18 21:42 Calcium 9.6 mg/dL (7.9-10.9) 12/22/18 18:30 Calcium Adj for Albumin 9.6 mg/dL (8.4-10.2) 12/22/18 18:30 Magnesium 2.4 mg/dL (1.2-2.8) 12/22/18 18:30 1.1 mg/dL (0.0-1.1) 12/22/18 18:30 AST 21 U/L (0-48) 12/22/18 18:30 ALT 39 U/L (19-67) 12/22/18 18:30 76 U/L (50-170) 12/22/18 18:30 Less than 0.017 ng/mL (0.00-0.10) 12/22/18 18:30 6.8 gm/dL (6.2-8.2) 12/22/18 18:30 3.6 gm/dl (3.4-5.0) 12/22/18 18:30 Yellow 12/22/18 19:28 Clear (CLEAR) 12/22/18 19:28 7.0 pH (5.0-7.0) 12/22/18 19:28 Ur Specific [place] 1.015 SP.GR. (1.005-1.010) 12/22/18 19:28 Negative mg/dL (NEGATIVE) 12/22/18 19:28 Negative mg/dL (NEGATIVE) 12/22/18 19:28 Negative mg/dL (NEGATIVE) 12/22/18 19:28 Negative /ul (NEGATIVE) 12/22/18 19:28 Negative (NEGATIVE) 12/22/18 19:28 Negative mg/dl (NEGATIVE) 12/22/18 19:28 Normal EU/dl (NORMAL) 12/22/18 19:28 Ur Leukocyte Esterase Negative /ul (NEGATIVE) 12/22/18 19:28 None seen /hpf (0-5) 12/22/18 19:28 None seen /hpf (0-5) 12/22/18 19:28 Ur Epithelial Cells None seen /hpf (0-5) 12/22/18 19:28 Trace (NONE) 12/22/18 19:28 Hyaline Casts Trace /LPF (NONE) 12/22/18 19:28 Trace (NONE) 12/22/18 19:28 No culture indicated 12/22/18 19:28 Assessment/Plan - Narrative Narrative: Will start on IV antibiotics Zosyn to cover for aspiration pneumonia, Azithromycin for atypicals, started on IV Solu-Medrol and keep her on breathing treatments. Will get speech therapy and PT evaluation and treatment. Her lactic acidosis has resolved. - Assessment/Plan (1) Fall Problem: Acute (2) Lactic acidosis Problem: Acute (3) Leukocytosis Problem: Acute Qualifiers: (4) Aspiration pneumonia Problem: Acute (5) COPD exacerbation Problem: Acute (6) Anxiety and depression Problem: Chronic (7) Hypertension Problem: Chronic Qualifiers: Hypertension type: essential hypertension (8) Neuroleptic-induced tardive dyskinesia Problem: Chronic
[2018-12-23] MEDS ORDERED: PIPERACILLIN SODIUM/TAZOBACTAM 3.375 GM in DEXTROSE 5 % IN WATER 100 ML IV SCH ×2 (09:00)
[2018-12-23] MEDS ORDERED: AZITHROMYCIN 250 MG TABLET PO ONE (09:01)
[2018-12-23] MEDS: SACCHAROMYCES BOULARDII 250 MG CAPSULE PO SCH ×2 (10:07→20:42)
[2018-12-23] MEDS: GABAPENTIN 400 MG CAPSULE PO SCH ×3 (10:07→17:35)
[2018-12-23] MEDS: MIRABEGRON 25 MG TAB.PO.ER PO SCH (10:08)
[2018-12-23] MEDS: FUROSEMIDE 20 MG TABLET PO SCH (10:09)
[2018-12-23] MEDS: LOSARTAN POTASSIUM 50 MG TABLET PO SCH (10:09)
[2018-12-23] MEDS: LORazepam 1 MG TABLET PO SCH ×4 (10:11→20:48)
[2018-12-23] MEDS: METHYLPREDNISOLONE SOD SUCC/PF 40 MG/ML VIAL IV SCH ×3 (10:12→20:43)
[2018-12-23] MEDS: CHOLECALCIFEROL 1,000 UNIT CAPSULE PO SCH (10:12)
[2018-12-23] MEDS: DULoxetine HCL 30 MG CAPSULE.SA PO SCH ×2 (10:12→17:36)
[2018-12-23] MEDS: MAGNESIUM OXIDE 400 MG TABLET PO SCH (10:13)
[2018-12-23] MEDS: MEROPENEM 1 GM in NORMAL SALINE 100 ML IV SCH ×2 (10:20→17:35)
[2018-12-23] MEDS: ALBUTEROL SULFATE/IPRATROPIUM 3 ML NEBU IH SCH ×3 (11:00→19:48)
[2018-12-23] MEDS: traMADol HCL 50 MG TABLET PO PRN (11:10)
[2018-12-23] MEDS: VALBENAZINE TOSYLATE 40 MG PO SCH (12:03)
[2018-12-23] MEDS: ENOXAPARIN SODIUM 40 MG/0.4 ML SYRG SC SCH (15:45)
[2018-12-23] MEDS: ASPIRIN 81 MG TAB.CHEW PO SCH (20:41)
[2018-12-23] MEDS: MIRTAZAPINE 15 MG TABLET PO SCH (20:42)
[2018-12-23] MEDS: METOPROLOL SUCCINATE 100 MG TABLET.SA PO SCH (20:44)
[2018-12-23] MEDS: THEANINE PO SCH (20:44)
[2018-12-24] MEDS: METHYLPREDNISOLONE SOD SUCC/PF 40 MG/ML VIAL IV SCH ×4 (02:22→23:12)
[2018-12-24] MEDS: MEROPENEM 1 GM in NORMAL SALINE 100 ML IV SCH ×3 (02:22→17:47)
[2018-12-24] MEDS: ALBUTEROL SULFATE/IPRATROPIUM 3 ML NEBU IH SCH ×7 (03:01→22:12)
[2018-12-24 08:19] LABS: Hematocrit 47.5 % (37.0-47.0); Hemoglobin 15.2 gm/dL (12.5-16.0); Mean Cell Volume 107.7 fl (78-100); Mean Corpuscular Hemoglobin 34.5 pg (27-31); Neutrophil # 17.9 K/mm3 (1.3-6.0); Neutrophil % 88.9 % (42-75.0); Platelet Count 196 K/mm3 (150-450); Red Blood Count 4.41 M/mm3 (4.2-5.4); Red Cell Distribution Width 13.6 % (11.5-14.0); White Blood Count 20.1 K/mm3 (4.0-10.5)
[2018-12-24 08:25] LABS: Anion Gap 14.2 mmol/L (6.8-13.8); BUN/Creatinine Ratio 20.6 (9.0-21.6); Calcium * 9.2 mg/dL (7.9-10.9); Carbon Dioxide 26.3 mmol/L (24-32.6); Estimated Creat Clear 40.2; Potassium 4.5 mmol/L (3.4-4.6)
--- NOTE | 2018-12-24 08:25 | PN ---
Subjective - Date and Time Seen Date: 12/24/18 Time: 08:10 Subjective Narrative: The patient says she is feeling better- less cough and SOB. Not tolerating mechanical soft diet as much. ST and PT on consult. Afebrile. Tmax 37.4. Objective - Review of Systems Generalized/Overall Review: Reports: Weakness. Denies: Chills, Fever EENTM: Denies: Blurred Vision Respiratory: Reports: Cough - less, Shortness of Breath - less, Wheezing - occasional Cardiac: Denies: Chest Pain, Edema, Palpitations Abdominal: Denies: Nausea, Vomiting, Abdominal Pain Genitourinary Symptoms: Denies: Urgency, Frequency Musculoskeletal Complaints: Reports: Back Pain - better Neurological: Reports: Anxiety. Denies: Headache Skin: Denies: Lesions, Rash Endocrine: Denies: Intolerance to Cold, Intolerance to Heat Misc: All systems neg except as marked - Vitals Vitals: Last Vital Signs Temp 36.6 C 12/24/18 02:00 Pulse 88 12/24/18 06:49 Resp 16 12/24/18 06:49 BP 155/72 H 12/24/18 02:00 Pulse Ox 92 L 12/24/18 06:39 - Exam Constitutional: Present: Alert, Oriented x3, Cooperative, Obese ENT Exam: Present: hearing grossly normal Neck: Present: supple Respiratory: Present: decreased breath sounds, crackles - base, wheezing - occasional Cardiovascular/Chest: Present: regular rate, rhythm, no JVD, no murmur Abdomen: Present: Normal bowel sounds, nondistended Extremity: Present: no pedal edema, no calf tenderness Assessment/Plan Plan Narrative: Coninue with presenet management. awaiting for lab results. - Problems/Diagnosis (1) Weakness Problem: Acute Narrative: due to deconditioning. continuer with PT (2) Fall Problem: Acute Narrative: contibnue with PT for strengthening (3) Lactic acidosis Problem: Resolved (4) Leukocytosis Problem: Acute Qualifiers: Narrative: await labs (5) COPD exacerbation Problem: Acute Narrative: continue with present management (6) Aspiration pneumonia Problem: Acute Narrative: continue with IV antibiotics (7) Anxiety and depression Problem: Chronic Narrative: continue with home medications (8) Hypertension Problem: Chronic Qualifiers: Hypertension type: essential hypertension Qualified Code(s): I10 - Essential (primary) hypertension Narrative: continue with home medications (9) Neuroleptic-induced tardive dyskinesia Problem: Chronic Narrative: continue with home medications
[2018-12-24] MEDS: GABAPENTIN 400 MG CAPSULE PO SCH ×3 (09:56→16:41)
[2018-12-24] MEDS: AZITHROMYCIN 250 MG TABLET PO SCH (09:56)
[2018-12-24] MEDS: MIRABEGRON 25 MG TAB.PO.ER PO SCH (09:56)
[2018-12-24] MEDS: MAGNESIUM OXIDE 400 MG TABLET PO SCH (09:56)
[2018-12-24] MEDS: LORazepam 1 MG TABLET PO SCH ×4 (09:56→23:12)
[2018-12-24] MEDS: SACCHAROMYCES BOULARDII 250 MG CAPSULE PO SCH ×2 (09:57→23:12)
[2018-12-24] MEDS: DULoxetine HCL 30 MG CAPSULE.SA PO SCH ×2 (09:57→16:42)
[2018-12-24] MEDS: CHOLECALCIFEROL 1,000 UNIT CAPSULE PO SCH (09:57)
[2018-12-24] MEDS: FUROSEMIDE 20 MG TABLET PO SCH (09:57)
[2018-12-24] MEDS: LOSARTAN POTASSIUM 50 MG TABLET PO SCH (09:57)
[2018-12-24] MEDS: traMADol HCL 50 MG TABLET PO PRN (11:22)
[2018-12-24] MEDS: VALBENAZINE TOSYLATE 40 MG PO SCH (12:34)
[2018-12-24] MEDS: ENOXAPARIN SODIUM 40 MG/0.4 ML SYRG SC SCH (16:02)
[2018-12-24] MEDS: THEANINE PO SCH (23:11)
[2018-12-24] MEDS: METOPROLOL SUCCINATE 100 MG TABLET.SA PO SCH (23:11)
[2018-12-24] MEDS: MIRTAZAPINE 15 MG TABLET PO SCH (23:12)
[2018-12-24] MEDS: ASPIRIN 81 MG TAB.CHEW PO SCH (23:12)
[2018-12-25] MEDS: ALBUTEROL SULFATE/IPRATROPIUM 3 ML NEBU IH SCH ×6 (02:25→22:07)
[2018-12-25] MEDS: MEROPENEM 1 GM in NORMAL SALINE 100 ML IV SCH ×3 (02:44→17:27)
[2018-12-25] MEDS: METHYLPREDNISOLONE SOD SUCC/PF 40 MG/ML VIAL IV SCH (04:09)
[2018-12-25 05:40] LABS: Hematocrit 44.1 % (37.0-47.0); Hemoglobin 14.1 gm/dL (12.5-16.0); Mean Cell Volume 108.4 fl (78-100); Mean Corpuscular Hemoglobin 34.6 pg (27-31); Platelet Count 213 K/mm3 (150-450); Red Blood Count 4.07 M/mm3 (4.2-5.4); Red Cell Distribution Width 13.3 % (11.5-14.0); White Blood Count 22.1 K/mm3 (4.0-10.5)
[2018-12-25 05:46] LABS: Total Cells Counted 100
[2018-12-25 06:00] LABS: Band 6 % (0-2.0); Lymphocyte 2 % (20-51); Monocyte 3 % (0-9); Neutrophil 89 % (42-75); Neutrophil # 19.7 K/mm3 (1.3-6.0); Platelet Estimate Normal (NORMAL); RBC Morphology Normal (NORMAL)
--- NOTE | 2018-12-25 08:17 | PN ---
Subjective - Date and Time Seen Date: 12/25/18 Time: 08:16 Subjective Narrative: Patient says she is not feeling good but can't be more specific than that. Afebrile. Tmax 37. WBC is up to 22. BM 1/day since the last 2 days. no diarrhea. denies choking on her food. Objective - Review of Systems Generalized/Overall Review: Reports: Weakness. Denies: Chills, Fever EENTM: Denies: Blurred Vision Respiratory: Reports: Cough, Shortness of Breath Cardiac: Denies: Chest Pain, Edema, Palpitations Abdominal: Reports: Abdominal Pain. Denies: Nausea, Vomiting, Constipation, Diarrhea Genitourinary Symptoms: Denies: Urgency, Frequency Neurological: Denies: Headache Skin: Denies: Rash - Vitals Vitals: Last Vital Signs Temp 36.8 C 12/25/18 07:31 Pulse 113 H 12/25/18 07:31 Resp 18 12/25/18 07:31 BP 138/64 12/25/18 07:31 Pulse Ox 93 12/25/18 07:31 - Abnormal Lab Findings Abnormal Lab Findings: Abnormal Lab Results 12/24/18 12/24/18 12/25/18 Range/Units 08:10 08:10 05:32 WBC 20.1 H 22.1 H (4.0-10.5) K/mm3 RBC 4.07 L (4.2-5.4) M/mm3 Hct 47.5 H (37.0-47.0) % MCV 107.7 H 108.4 H (78-100) fl MCH 34.5 H 34.6 H (27-31) pg Immature Gran % (Auto) 1.00 H (0.001-0.429) % Immature Gran # (Auto) 0.21 H (0.000-0.0310) K/mm3 Neutrophils % 88.9 H (42-75.0) % Neutrophils % (Manual) 89 H (42-75) % Band Neuts % (Manual) 6 H (0-2.0) % Lymphocytes % 7.3 L (20-51) % Lymphocytes % (Manual) 2 L (20-51) % Neutrophils # 17.9 H (1.3-6.0) K/mm3 Neutrophils # (Manual) 19.7 H (1.3-6.0) K/mm3 Lymphocytes # 1.46 L (1.5-3.5) k/mm3 Lymphocytes # (Manual) 0.4 L (1.5-3.5) k/mm3 Anion Gap 14.2 H (6.8-13.8) mmol/L Est GFR (Non-Af Amer) 59 L (60-130) mL/min Random Glucose 259 H D (70-110) mg/dL - Exam Constitutional: Present: Alert, Cooperative, Obese ENT Exam: Present: hearing grossly normal Neck: Present: supple Respiratory: Present: normal breath sounds, No rales, No wheezing Cardiovascular/Chest: Present: regular rate, rhythm, no JVD, no murmur, tachycardia Abdomen: Present: Normal bowel sounds, soft, nontender, nondistended, tender - RUQ-equivocal? Extremity: Present: no calf tenderness. Absent: lower extremity edema Assessment/Plan - Problems/Diagnosis (1) Leukocytosis Problem: Acute Qualifiers: Leukocytosis type: bandemia Qualified Code(s): D72.825 - Bandemia Narrative: day # 3 of Meropenem and Azithromycin.WBC is up to 22. could be due to steroids but unlikely but will d/c it as she is no longer wheezing.. BC x 2 om 12/22/18 were NG preliminarily. will repeat UA and UCS if warranted, do a follow up CXR and do a CMP. Will likely repeat a BC x 2 tomorrow if WBC is still not improving. will need to stay over the weekend and will sign out to [employer]. (2) Hyperglycemia Problem: Acute Narrative: likely due to steroids. will d/c IV solumedrol. if continues to be high might start a basal insulin. (3) Weakness Problem: Acute (4) Fall Problem: Acute (5) COPD exacerbation Problem: Resolved Narrative: will d/c IV solumedrol. (6) Aspiration pneumonia Problem: Acute (7) Lactic acidosis Problem: Resolved (8) Anxiety and depression Problem: Chronic (9) Hypertension Problem: Chronic Qualifiers: Hypertension type: essential hypertension Qualified Code(s): I10 - Essential (primary) hypertension (10) Neuroleptic-induced tardive dyskinesia Problem: Chronic
[2018-12-25 08:29] LABS: BUN/Creatinine Ratio 31.5 (9.0-21.6); Bilirubin, Total 0.4 mg/dL (0.0-1.1); CRP 2.7 mg/dL (0.0-0.9); Ca. Corrected For Albumin 9.9 mg/dL (8.4-10.2); Calcium * 9.4 mg/dL (7.9-10.9); Carbon Dioxide 28.9 mmol/L (24-32.6); Potassium 4.9 mmol/L (3.4-4.6); Total Protein 5.7 gm/dL (6.2-8.2)
[2018-12-25] MEDS: LORazepam 1 MG TABLET PO SCH ×4 (08:51→20:22)
[2018-12-25] MEDS: LOSARTAN POTASSIUM 50 MG TABLET PO SCH (08:51)
[2018-12-25] MEDS: FUROSEMIDE 20 MG TABLET PO SCH (08:52)
[2018-12-25] MEDS: DULoxetine HCL 30 MG CAPSULE.SA PO SCH ×2 (08:52→16:23)
[2018-12-25] MEDS: MAGNESIUM OXIDE 400 MG TABLET PO SCH (08:52)
[2018-12-25] MEDS: GABAPENTIN 400 MG CAPSULE PO SCH ×3 (08:52→16:23)
[2018-12-25] MEDS: MIRABEGRON 25 MG TAB.PO.ER PO SCH (08:52)
[2018-12-25] MEDS: SACCHAROMYCES BOULARDII 250 MG CAPSULE PO SCH ×2 (08:52→20:17)
[2018-12-25] MEDS: traMADol HCL 50 MG TABLET PO PRN ×2 (08:53→14:57)
[2018-12-25] MEDS: CHOLECALCIFEROL 1,000 UNIT CAPSULE PO SCH (08:53)
[2018-12-25] MEDS: AZITHROMYCIN 250 MG TABLET PO SCH (08:53)
[2018-12-25] MEDS: VALBENAZINE TOSYLATE 40 MG PO SCH (12:17)
[2018-12-25 12:42] LABS: Urine Bilirubin Negative (NEGATIVE); Urine Blood Negative /ul (NEGATIVE); Urine Ketone Negative (NEGATIVE); Urine Nitrite Negative (NEGATIVE); Urine Protein Negative (NEGATIVE); Urine Specific Gravity 1.025 SP.GR. (1.005-1.010); Urine Urobilinogen Normal (NORMAL); Urine pH 5.5 pH (5.0-7.0)
[2018-12-25 12:57] LABS: Urine Appearance Clear (CLEAR); Urine Bacteria TRACE; Urine Color Pale Yellow; Urine RBC None Seen /hpf (0-5); Urine WBC None Seen /hpf (0-5)
[2018-12-25] MEDS: ENOXAPARIN SODIUM 40 MG/0.4 ML SYRG SC SCH (14:57)
[2018-12-25] MEDS: ASPIRIN 81 MG TAB.CHEW PO SCH (20:16)
[2018-12-25] MEDS: MIRTAZAPINE 15 MG TABLET PO SCH (20:17)
[2018-12-25] MEDS: METOPROLOL SUCCINATE 100 MG TABLET.SA PO SCH (20:18)
[2018-12-25] MEDS: THEANINE PO SCH (20:18)
[2018-12-26] MEDS: MEROPENEM 1 GM in NORMAL SALINE 100 ML IV SCH ×3 (02:06→17:41)
[2018-12-26] MEDS: ALBUTEROL SULFATE/IPRATROPIUM 3 ML NEBU IH SCH ×6 (02:11→22:54)
[2018-12-26 06:11] LABS: Hematocrit 43.2 % (37.0-47.0); Hemoglobin 13.5 gm/dL (12.5-16.0); Mean Cell Volume 108.5 fl (78-100); Mean Corpuscular Hemoglobin 33.9 pg (27-31); Mean Corpuscular Hgb Conc 31.3 g/dl (32-36); Mean Platelet Volume 10.2 fl (8-12.5); Neutrophil # 12.1 K/mm3 (1.3-6.0); Neutrophil % 79.6 % (42-75.0); Platelet Count 211 K/mm3 (150-450); Red Blood Count 3.98 M/mm3 (4.2-5.4); Red Cell Distribution Width 13.4 % (11.5-14.0); White Blood Count 15.1 K/mm3 (4.0-10.5)
[2018-12-26 06:34] LABS: Albumin * 2.6 gm/dl (3.4-5.0); Anion Gap 7.9 mmol/L (6.8-13.8); Bilirubin, Total 0.4 mg/dL (0.0-1.1); Ca. Corrected For Albumin 9.7 mg/dL (8.4-10.2); Calcium * 8.9 mg/dL (7.9-10.9); Carbon Dioxide 31.8 mmol/L (24-32.6); Potassium 4.7 mmol/L (3.4-4.6); Total Protein 5.5 gm/dL (6.2-8.2)
[2018-12-26] MEDS: LOSARTAN POTASSIUM 50 MG TABLET PO SCH (08:20)
[2018-12-26] MEDS: LORazepam 1 MG TABLET PO SCH ×4 (08:20→20:30)
[2018-12-26] MEDS: MIRABEGRON 25 MG TAB.PO.ER PO SCH (08:21)
[2018-12-26] MEDS: GABAPENTIN 400 MG CAPSULE PO SCH ×3 (08:21→17:41)
[2018-12-26] MEDS: FUROSEMIDE 20 MG TABLET PO SCH (08:21)
[2018-12-26] MEDS: DULoxetine HCL 30 MG CAPSULE.SA PO SCH ×2 (08:21→17:41)
[2018-12-26] MEDS: MAGNESIUM OXIDE 400 MG TABLET PO SCH (08:21)
[2018-12-26] MEDS: SACCHAROMYCES BOULARDII 250 MG CAPSULE PO SCH ×2 (08:21→20:25)
[2018-12-26] MEDS: CHOLECALCIFEROL 1,000 UNIT CAPSULE PO SCH (08:22)
[2018-12-26] MEDS: AZITHROMYCIN 250 MG TABLET PO SCH (08:22)
[2018-12-26] MEDS: VALBENAZINE TOSYLATE 40 MG PO SCH (12:36)
[2018-12-26] MEDS ORDERED: ONDANSETRON 4 MG TAB.RAPDIS PO PRN (12:44)
--- NOTE | 2018-12-26 12:44 | PN ---
Subjective - Date and Time Seen Date: 12/26/18 Time: 12:33 Subjective Narrative: I have nausea and the food is horrible, I also feel anxious. Objective Objective Narrative: 78-year-old female admitted for aspiration pneumonia, COPD exacerbation, sepsis, was evaluated at bedside and was found to be afebrile and in no acute distress. Patient shows improvement however she reports feeling anxious this morning however I believe that is not known with her. Patient also reports nausea but says it started when she attempted to eat the food that she was serves which grosses her out. Patient was placed on a mechanical soft diet by the speech therapist as a precaution for difficulty with swallowing. There has been no swallowing episodes reported and patient does not display persistent coughing. She also reports continued occasional shortness of breath and was on nasal cannula during the evaluation, however we will attempt to wean oxygen and see how she tolerates and evaluate her oxygen saturation on room air. There has been no recurrence of fever and WBCs have decreased in response to IV antibiotics, bandemia has resolved, patient's GFR has improved, electrolytes are within normal limits. Follow-up CMP has been ordered for tomorrow morning to reevaluate kidney function and electrolytes. Discharge planning is taking place for the patient could be discharged to a long-term on Friday. We will con jose to monitor her closely. - Review of Systems Generalized/Overall Review: Reports: No Symptoms Reported EENTM: Reports: No Symptoms Reported Respiratory: Reports: Shortness of Breath Cardiac: Reports: No Symptoms Reported Abdominal: Reports: Nausea Genitourinary Symptoms: Reports: No Symptoms Reported Musculoskeletal Complaints: Reports: No Symptoms Reported Neurological: Reports: Anxiety, Emotional Problems Skin: Reports: No Symptoms Reported Endocrine: Reports: No Symptoms Reported - Vitals Vitals: Last Vital Signs Temp 36.5 C 12/26/18 10:00 Pulse 88 12/26/18 10:15 Resp 18 12/26/18 10:15 BP 134/63 12/26/18 10:00 Pulse Ox 96 12/26/18 10:05 - Abnormal Lab Findings Abnormal Lab Findings: Abnormal Lab Results 12/25/18 12/26/18 12/26/18 Range/Units 12:37 05:30 06:00 WBC 15.1 H D (4.0-10.5) K/mm3 RBC 3.98 L (4.2-5.4) M/mm3 MCV 108.5 H (78-100) fl MCH 33.9 H (27-31) pg MCHC 31.3 L (32-36) g/dl Immature Gran % (Auto) 0.50 H (0.001-0.429) % Immature Gran # (Auto) 0.07 H (0.000-0.0310) K/mm3 Neutrophils % 79.6 H (42-75.0) % Lymphocytes % 11.7 L (20-51) % Neutrophils # 12.1 H (1.3-6.0) K/mm3 Monocytes # 1.2 H (0.0-1.0) k/mm3 Potassium 4.7 H (3.4-4.6) mmol/L BUN 29 H (3-23) mg/dL BUN/Creatinine Ratio 42.0 H (9.0-21.6) Random Glucose 113 H D (70-110) mg/dL Total Protein 5.5 L (6.2-8.2) gm/dL Albumin 2.6 L (3.4-5.0) gm/dl Urine Glucose (UA) 500 H (NEGATIVE) mg/dL Ur Epithelial Cells 5-10 H (0-5) /hpf - Exam Constitutional: Present: Alert, Oriented x3, Cooperative, Well developed, Well nourished, No distress, Elderly ENT Exam: Present: normal ENT inspection, hearing grossly normal, pharynx normal, TMs normal Neck: Present: non-tender, full range of motion, supple, normal inspection, trachea midline Respiratory: Present: chest non-tender, normal breath sounds, no respiratory distress, no accessory muscle use, decreased breath sounds, crackles Cardiovascular/Chest: Present: normal peripheral pulses, regular rate, rhythm, no chest tenderness, no edema, no gallop, no JVD, no murmur, no rub Abdomen: Present: Normal bowel sounds, soft, nontender, nondistended, no rebound tenderness, no hepatospenomegaly, no masses /Rectal: Present: Exam deferred Extremity: Present: normal range of motion, non-tender, normal inspection, no pedal edema, no calf tenderness, normal capillary refill, pelvis stable Skin Exam: Present: normal color, warm/dry, no cyanosis Lymphatic: Present: no adenopathy Neurologic: Present: 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 Orders to wean oxygen have been placed we will evaluate oxygen saturation throughout the day. Discharge planning is underway for long-term for Friday. - Problems/Diagnosis (1) Aspiration pneumonia Problem: Acute (2) Weakness Problem: Acute (3) Fall Problem: Acute (4) GERD (gastroesophageal reflux disease) Problem: Chronic Qualifiers: Esophagitis presence: esophagitis presence not specified Qualified Code(s): K21.9 - Gastro-esophageal reflux disease without esophagitis (5) Leukocytosis Problem: Acute Qualifiers: Leukocytosis type: bandemia Qualified Code(s): D72.825 - Bandemia (6) Anxiety and depression Problem: Chronic (7) Panic disorder Problem: Chronic (8) GERD (gastroesophageal reflux disease) Problem: Chronic Qualifiers: Esophagitis presence: esophagitis presence not specified Qualified Code(s): K21.9 - Gastro-esophageal reflux disease without esophagitis (9) CHF (congestive heart failure) Problem: Chronic Qualifiers: Heart failure type: unspecified Heart failure chronicity: chronic Qualified Code(s): I50.9 - Heart failure, unspecified
[2018-12-26] MEDS: ENOXAPARIN SODIUM 40 MG/0.4 ML SYRG SC SCH (14:41)
[2018-12-26] MEDS: traMADol HCL 50 MG TABLET PO PRN (14:48)
[2018-12-26] MEDS: ASPIRIN 81 MG TAB.CHEW PO SCH (20:25)
[2018-12-26] MEDS: THEANINE PO SCH (20:26)
[2018-12-26] MEDS: MIRTAZAPINE 15 MG TABLET PO SCH (20:26)
[2018-12-26] MEDS: METOPROLOL SUCCINATE 100 MG TABLET.SA PO SCH (20:27)
[2018-12-27] MEDS: MEROPENEM 1 GM in NORMAL SALINE 100 ML IV SCH ×3 (01:56→17:05)
[2018-12-27] MEDS: ALBUTEROL SULFATE/IPRATROPIUM 3 ML NEBU IH SCH ×6 (02:12→22:02)
[2018-12-27 06:19] LABS: Hemoglobin 13.7 gm/dL (12.5-16.0); Mean Cell Volume 108.9 fl (78-100); Mean Corpuscular Hemoglobin 34.7 pg (27-31); Mean Corpuscular Hgb Conc 31.9 g/dl (32-36); Mean Platelet Volume 10.2 fl (8-12.5); Neutrophil # 5.1 K/mm3 (1.3-6.0); Neutrophil % 50.3 % (42-75.0); Platelet Count 179 K/mm3 (150-450); Red Blood Count 3.95 M/mm3 (4.2-5.4); Red Cell Distribution Width 13.4 % (11.5-14.0); White Blood Count 10.1 K/mm3 (4.0-10.5)
[2018-12-27 06:39] LABS: Albumin * 2.5 gm/dl (3.4-5.0); Anion Gap 6.2 mmol/L (6.8-13.8); BUN/Creatinine Ratio 34.2 (9.0-21.6); Bilirubin, Total 0.5 mg/dL (0.0-1.1); CRP 0.6 mg/dL (0.0-0.9); Ca. Corrected For Albumin 9.5 mg/dL (8.4-10.2); Calcium * 8.6 mg/dL (7.9-10.9); Carbon Dioxide 34.2 mmol/L (24-32.6); Potassium 4.4 mmol/L (3.4-4.6); Total Protein 5.2 gm/dL (6.2-8.2)
[2018-12-27] MEDS: MAGNESIUM OXIDE 400 MG TABLET PO SCH (08:28)
[2018-12-27] MEDS: DULoxetine HCL 30 MG CAPSULE.SA PO SCH ×2 (08:28→17:05)
[2018-12-27] MEDS: FUROSEMIDE 20 MG TABLET PO SCH (08:28)
[2018-12-27] MEDS: GABAPENTIN 400 MG CAPSULE PO SCH ×3 (08:28→17:05)
[2018-12-27] MEDS: SACCHAROMYCES BOULARDII 250 MG CAPSULE PO SCH ×2 (08:28→20:26)
[2018-12-27] MEDS: LOSARTAN POTASSIUM 50 MG TABLET PO SCH (08:29)
[2018-12-27] MEDS: MIRABEGRON 25 MG TAB.PO.ER PO SCH (08:29)
[2018-12-27] MEDS: AZITHROMYCIN 250 MG TABLET PO SCH (08:29)
[2018-12-27] MEDS: CHOLECALCIFEROL 1,000 UNIT CAPSULE PO SCH (08:29)
[2018-12-27] MEDS: LORazepam 1 MG TABLET PO SCH ×4 (08:32→20:30)
[2018-12-27] MEDS ORDERED: FUROSEMIDE 20 MG TABLET PO ONE (10:00)
[2018-12-27] MEDS: VALBENAZINE TOSYLATE 40 MG PO SCH (11:02)
[2018-12-27] MEDS ORDERED: guaiFENesin 100 MG/5 ML BTL PO PRN (13:10)
--- NOTE | 2018-12-27 13:24 | PN ---
Subjective - Date and Time Seen Date: 12/27/18 Time: 13:02 Subjective Narrative: I have an upset stomach and a cough. Objective Objective Narrative: 78-year-old female admitted for aspiration pneumonia, COPD exacerbat ion, sepsis, was evaluated at bedside and was found to be afebrile and in no acute distress. Patient continues to complain about an upset stomach so antacid was ordered and administered. She also complains of cough so antitussives will also be ordered. However, patient has stable vitals and this morning's labs demonstrate resolution of her leukocytosis. She is saturating adequately and denies any shortness of breath. Nursing staff reported a 4 pound weight gain since her hospitalization and mild basilar crackles and inspiratory wheezes at lung bases were auscultated during bedside evaluation, therefore IV diuretics were increased. We will continue to monitor her closely. - Review of Systems Generalized/Overall Review: Reports: Weight gain EENTM: Reports: No Symptoms Reported Respiratory: Reports: Cough Cardiac: Reports: No Symptoms Reported Abdominal: Reports: Abdominal Pain Genitourinary Symptoms: Reports: No Symptoms Reported Musculoskeletal Complaints: Reports: No Symptoms Reported Neurological: Reports: No Symptoms Reported Skin: Reports: No Symptoms Reported Endocrine: Reports: No Symptoms Reported - Vitals Vitals: Last Vital Signs Temp 36.7 C 12/27/18 07:28 Pulse 90 12/27/18 10:54 Resp 16 12/27/18 10:15 BP 156/77 H 12/27/18 10:54 Pulse Ox 95 12/27/18 10:07 - Abnormal Lab Findings Abnormal Lab Findings: Abnormal Lab Results 12/27/18 12/27/18 Range/Units 05:45 05:45 RBC 3.95 L (4.2-5.4) M/mm3 MCV 108.9 H (78-100) fl MCH 34.7 H (27-31) pg MCHC 31.9 L (32-36) g/dl Immature Gran % (Auto) 0.60 H (0.001-0.429) % Immature Gran # (Auto) 0.06 H (0.000-0.0310) K/mm3 Monocytes % 12.6 H (0.0-9) % Lymphocytes # 3.52 H (1.5-3.5) k/mm3 Monocytes # 1.3 H (0.0-1.0) k/mm3 Carbon Dioxide 34.2 H (24-32.6) mmol/L Anion Gap 6.2 L (6.8-13.8) mmol/L BUN 26 H (3-23) mg/dL BUN/Creatinine Ratio 34.2 H (9.0-21.6) Total Protein 5.2 L (6.2-8.2) gm/dL Albumin 2.5 L (3.4-5.0) gm/dl - Exam Constitutional: Present: Alert, Oriented x3, Cooperative, Well developed, Well nourished, No distress ENT Exam: Present: normal ENT inspection Neck: Present: non-tender, full range of motion, supple, normal inspection, trachea midline Breasts: Present: Exam deferred Respiratory: Present: crackles, wheezing Cardiovascular/Chest: Present: normal peripheral pulses, regular rate, rhythm, no chest tenderness, no edema, no gallop, no JVD, no murmur, no rub Abdomen: Present: Normal bowel sounds, soft, nondistended, no masses, obese, tender - Epigastric tenderness /Rectal: Present: Exam deferred Extremity: Present: normal range of motion, non-tender, normal inspection, no calf tenderness, normal capillary refill, pelvis stable, pedal edema - 1+ bilateral pedal edema Skin Exam: Present: normal color, warm/dry, no cyanosis Lymphatic: Present: no adenopathy Neurologic: Present: 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 We will try again later on this evening. In the meantime patient will continue to receive IV diuretics for her CHF, IV antibiotics for pneumonia, and breathing treatments to treat her COPD. Her PCP returns in the morning and will take over her care in the meantime we will continue to monitor closely. - Problems/Diagnosis (1) Aspiration pneumonia Problem: Acute (2) Weakness Problem: Acute (3) Fall Problem: Acute (4) GERD (gastroesophageal reflux disease) Problem: Chronic Qualifiers: Esophagitis presence: esophagitis presence not specified Qualified Code(s): K21.9 - Gastro-esophageal reflux disease without esophagitis (5) Leukocytosis Problem: Resolved Qualifiers: Leukocytosis type: bandemia Qualified Code(s): D72.825 - Bandemia (6) Anxiety and depression Problem: Chronic (7) Panic disorder Problem: Chronic (8) GERD (gastroesophageal reflux disease) Problem: Chronic Qualifiers: Esophagitis presence: esophagitis presence not specified Qualified Code(s): K21.9 - Gastro-esophageal reflux disease without esophagitis (9) CHF (congestive heart failure) Problem: Chronic Qualifiers: Heart failure type: unspecified Heart failure chronicity: chronic Qualified Code(s): I50.9 - Heart failure, unspecified
[2018-12-27] MEDS: traMADol HCL 50 MG TABLET PO PRN (15:37)
[2018-12-27] MEDS: ENOXAPARIN SODIUM 40 MG/0.4 ML SYRG SC SCH (15:38)
[2018-12-27] MEDS: FAMOTIDINE 20 MG TABLET PO SCH ×2 (15:38→20:27)
[2018-12-27] MEDS: ASPIRIN 81 MG TAB.CHEW PO SCH (20:26)
[2018-12-27] MEDS: MIRTAZAPINE 15 MG TABLET PO SCH (20:27)
[2018-12-27] MEDS: METOPROLOL SUCCINATE 100 MG TABLET.SA PO SCH (20:27)
[2018-12-27] MEDS: THEANINE PO SCH (20:31)
[2018-12-28] MEDS: MEROPENEM 1 GM in NORMAL SALINE 100 ML IV SCH ×2 (02:04→09:38)
[2018-12-28] MEDS: ALBUTEROL SULFATE/IPRATROPIUM 3 ML NEBU IH SCH ×3 (02:11→10:45)
--- NOTE | 2018-12-28 08:19 | DS ---
(1) Leukocytosis Problem: Resolved Qualifiers: Leukocytosis type: bandemia Qualified Code(s): D72.825 - Bandemia (2) Hyperglycemia Problem: Acute (3) Weakness Problem: Acute (4) COPD exacerbation Problem: Resolved (5) Aspiration pneumonia Problem: Resolved (6) Lactic acidosis Problem: Resolved (7) Anxiety and depression Problem: Chronic (8) Hypertension Problem: Chronic Qualifiers: Hypertension type: essential hypertension Qualified Code(s): I10 - Essential (primary) hypertension (9) Neuroleptic-induced tardive dyskinesia Problem: Chronic Description of Stay: Kenisha Smart is a 78-year-old white female with past medical history of anxiety depression, panic attacks, COPD, hypertension, CHF who was admitted on 12/22/2018 because of main complaint she fell. 9 days prior to admission the patient started having shortness of breath associated with wheezing and she went to our walk-in clinic where she was diagnosed with acute sinusitis and bronchitis and was started on prednisone and doxycycline. 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 She also started having some loose stools occurring about 2 times a day for the last 2 days. She became more weak and the night before her admission she fell while trying to go to her bed. She denied any chest pain, palpitations, diaphoresis, loss of consciousness, and denied tripping on anything on the floor. She did state she just felt dizzy. She was then brought to our emergency room where she was found to have a leukocytosis of 20,000, lactic acidosis, and a chest x-ray with bilateral basilar atelectasis but cannot rule out an infection. The patient also admitted that for the last few days she had been choking on her meals. She was admitted for likely aspiration pneumonia with acute exacerbation of COPD that had failed outpatient treatment. She was started on IV Meropenem and PO Azithromycin. Due to her wheezing, IV solumedrol was also started and breathing treatments continued. e. Her WBC initially bumped up but settled down and normalized after 3 days of IV Meropenem and d/c steroids. Her BC were negative. She is saturating 93% on RA. She gained 4 pounds and still has a little bit of crackles and her lasix was increased. She is stable to be discharged and will follow her up in 1 week with a CBC/BMP. Procedures Performed: none Results and Findings: Lab Pending Results 12/22/18 18:30: WBC 20.3 H, RBC 4.54, Hgb 15.8, Hct 48.4 H, MCV 106.6 H, MCH 34.8 H, MCHC 32.6, RDW 13.6, Plt Count 200, MPV 9.9, Neutrophils % (Manual) 74, Lymphocytes % (Manual) 18 L, Monocytes % (Manual) 8, Neutrophils # (Manual) 15.0 H, Lymphocytes # (Manual) 3.7 H, Monocytes # (Manual) 1.6 H, Platelet Estimate Normal, RBC Morphology Normal 12/22/18 18:30: Sodium 139, Plasma Sodium 139, Potassium 3.7, Chloride 98, Carbon Dioxide 30.9, Anion Gap 13.8, BUN 17, Creatinine 1.02, Est GFR (Non-Af Amer) 56 L, BUN/Creatinine Ratio 16.7, Random Glucose 126 H, Calcium 9.6, Calcium Adj for Albumin 9.6, Magnesium 2.4, Total Bilirubin 1.1, AST 21, ALT 39, Alkaline Phosphatase 76, Troponin I Less than 0.017, Total Protein 6.8, Albumin 3.6 12/22/18 18:30: PT 11.2 H, INR (Anticoag Therapy) 1.14 H, PTT (Smith) 23.1 L 12/22/18 18:30: pCO2 47.0 H, pO2 29.9, HCO3 30.8 H, Total CO2 32.2 H, Base Excess 5.4 H, ABG pH 7.43, VBG O2 Saturation 58.4 L 12/22/18 18:30: Lactic Acid, Venous 2.2 H* 12/22/18 18:30: D-Dimer 0.62 H 12/22/18 19:28: Urine Color Yellow, Urine Appearance Clear, Urine pH 7.0, Ur Specific Se[place]our 1.015, Urine Protein Negative, Urine Glucose (UA) Negative, Urine Ketones Negative, Urine Blood Negative, Urine Nitrate Negative, Urine Bilirubin Negative, Urine Urobilinogen Normal, Ur Leukocyte Esterase Negative, Urine RBC None seen, Urine WBC None seen, Ur Epithelial Cells None seen, Urine Bacteria Trace, Hyaline Casts Trace, Urine Mucus Trace, Urine Culture Comments No culture indicated 12/22/18 21:42: Lactic Acid, Venous 1.3 12/24/18 08:10: WBC 20.1 H, RBC 4.41, Hgb 15.2, Hct 47.5 H, MCV 107.7 H, MCH 34.5 H, MCHC 32.0, RDW 13.6, Plt Count 196, MPV 10.0, Immature Gran % (Auto) 1.00 H, Immature Gran # (Auto) 0.21 H, Neutrophils % 88.9 H, Lymphocytes % 7.3 L, Monocytes % 2.7, Eosinophils % 0.0, Basophils % 0.1, Nucleated RBC % 0.0, Neutrophils # 17.9 H, Lymphocytes # 1.46 L, Monocytes # 0.5, Eosinophils # 0.0, Absolute Basophils 0.0 12/24/18 08:10: Sodium 135, Plasma Sodium 138, Potassium 4.5 D, Chloride 99, Carbon Dioxide 26.3, Anion Gap 14.2 H, BUN 20, Creatinine 0.97, Est GFR (Non-Af Amer) 59 L, BUN/Creatinine Ratio 20.6, Random Glucose 259 H D, Calcium 9.2 12/25/18 05:30: Sodium 136, Plasma Sodium 138, Potassium 4.9 H, Chloride 99, Carbon Dioxide 28.9, Anion Gap 13.0, BUN 29 H, Creatinine 0.92, Est GFR (Non-Af Amer) 63, BUN/Creatinine Ratio 31.5 H, Random Glucose 204 H, Calcium 9.4, Calcium Adj for Albumin 9.9, Total Bilirubin 0.4, AST 17, ALT 25, Alkaline Phosphatase 60, C-Reactive Prot, Quant 2.7 H, Total Protein 5.7 L, Albumin 3.0 L 12/25/18 05:32: WBC 22.1 H, RBC 4.07 L, Hgb 14.1, Hct 44.1, MCV 108.4 H, MCH 34.6 H, MCHC 32.0, RDW 13.3, Plt Count 213, MPV 10.0, Neutrophils % (Manual) 89 H, Band Neuts % (Manual) 6 H, Lymphocytes % (Manual) 2 L, Monocytes % (Manual) 3, Neutrophils # (Manual) 19.7 H, Lymphocytes # (Manual) 0.4 L, Monocytes # (Manual) 0.7, Platelet Estimate Normal, RBC Morphology Normal 12/25/18 08:14: ESR 11 12/25/18 12:37: Urine Color Pale yellow, Urine Appearance Clear, Urine pH 5.5, Ur Specific [place] 1.025, Urine Protein Negative, Urine Glucose (UA) 500 H, Urine Ketones Negative, Urine Blood Negative, Urine Nitrate Negative, Urine Bilirubin Negative, Urine Urobilinogen Normal, Ur Leukocyte Esterase Negative, Urine RBC None seen, Urine WBC None seen, Ur Epithelial Cells 5-10 H, Urine Bacteria Trace 12/26/18 05:30: Sodium 135, Plasma Sodium 135, Potassium 4.7 H, Chloride 100, Carbon Dioxide 31.8, Anion Gap 7.9, BUN 29 H, Creatinine 0.69, Est GFR (Non-Af Amer) 88 D, BUN/Creatinine Ratio 42.0 H, Random Glucose 113 H D, Calcium 8.9, Calcium Adj for Albumin 9.7, Total Bilirubin 0.4, AST 48, ALT 34, Alkaline Phosphatase 56, Total Protein 5.5 L, Albumin 2.6 L 12/26/18 06:00: WBC 15.1 H D, RBC 3.98 L, Hgb 13.5, Hct 43.2, MCV 108.5 H, MCH 33.9 H, MCHC 31.3 L, RDW 13.4, Plt Count 211, MPV 10.2, Immature Gran % (Auto) 0.50 H, Immature Gran # (Auto) 0.07 H, Neutrophils % 79.6 H, Lymphocytes % 11.7 L, Monocytes % 8.1, Eosinophils % 0.0, Basophils % 0.1, Nucleated RBC % 0.0, Neutrophils # 12.1 H, Lymphocytes # 1.77, Monocytes # 1.2 H, Eosinophils # 0.0, Absolute Basophils 0.0 12/27/18 05:45: WBC 10.1 D, RBC 3.95 L, Hgb 13.7, Hct 43.0, MCV 108.9 H, MCH 34.7 H, MCHC 31.9 L, RDW 13.4, Plt Count 179, MPV 10.2, Immature Gran % (Auto) 0.60 H, Immature Gran # (Auto) 0.06 H, Neutrophils % 50.3, Lymphocytes % 34.9, Monocytes % 12.6 H, Eosinophils % 1.4, Basophils % 0.2, Nucleated RBC % 0.0, Neutrophils # 5.1, Lymphocytes # 3.52 H, Monocytes # 1.3 H, Eosinophils # 0.1, Absolute Basophils 0.0 12/27/18 05:45: Sodium 138, Plasma Sodium 138, Potassium 4.4, Chloride 102, Carbon Dioxide 34.2 H, Anion Gap 6.2 L, BUN 26 H, Creatinine 0.76, Est GFR (Non- Af Amer) 78, BUN/Creatinine Ratio 34.2 H, Random Glucose 92, Calcium 8.6, Calcium Adj for Albumin 9.5, Total Bilirubin 0.5, AST 45, ALT 40, Alkaline Phosphatase 52, C-Reactive Prot, Quant 0.6, Total Protein 5.2 L, Albumin 2.5 L Discharge Location: [facility] Disposition: [facility] Condition: Stable Level of Care: SNF Discharge Activity: Activity as tolerated Discharge Diet: Low salt, Other - Pureed, thin liquid, no straw Senior Care Therapy: Physicial Therapy, Occupation Therapy, Speech Therapy Referrals: Katarina Cervantes MD [Primary Care Provider] - Additional Patient Instructions (free text): [facility] at discharge. residential will transport patient. Follow up with PCP in 1 week. Complete Home Medications List: Complete Home Medication List: Aspirin [Philipp Chewable Aspirin] 81 mg PO HS 01/02/18 compression stocking, knee high, regular length, small See Dose Instructions .ROUTE .MEDSUPPLY #12 ea 03/19/18 mirtazapine 7.5 mg tablet 7.5 mg PO HS 03/31/18 valbenazine 40 mg capsule 40 mg PO DAILY@1200 cap 03/31/18 cholecalciferol (vitamin D3) 2,000 unit capsule 2,000 unit PO QAM #90 cap 06/02/18 Gabapentin 800 mg PO TID 07/26/18 Saccharomyces boulardii 250 mg capsule 250 mg PO DAILY #90 cap 09/25/18 losartan 100 mg tablet 100 mg PO DAILY #90 tab 09/25/18 mirabegron ER 50 mg tablet,extended release 24 hr 50 mg PO QAM #90 tab 09/25/18 duloxetine 30 mg capsule,delayed release See Rx Instructions PO BID 10/02/18 lorazepam 1 mg tablet 1 mg PO QID tab 10/02/18 metoprolol succinate ER 200 mg tablet,extended release 24 hr 200 mg PO HS tab 10/02/18 theanine 50 mg disintegrating tablet 200 mg PO HS tab 10/02/18 Magnesium Oxide [Magnesium] 250 mg PO DAILY 12/22/18 Acetaminophen [Tylenol] 650 mg PO Q6H PRN #30 tablet 12/28/18 Albuterol Sulfate/Ipratropium [Duoneb 2.5-0.5MG/3ML Soln] 3 ml IH QID #2 nebu 12/28/18 Furosemide [Lasix] 40 mg PO DAILY #30 tablet 12/28/18 Levofloxacin [Levaquin] 750 mg PO DAILY 5 Days #5 tablet 12/28/18 Potassium Chloride [Klor-Con 10] 10 meq PO DAILY #30 tab 12/28/18 guaiFENesin [Robitussin] 100 mg PO Q4H PRN #1 btl 12/28/18 metroNIDAZOLE [Flagyl] 500 mg PO Q12H #10 tab 12/28/18 Amb Orders for Discharge: Basic Metabolic Panel Time Frame: 01/04/19, Location: Laboratory CBC Time Frame: 01/04/19, Location: Laboratory
[2018-12-28] MEDS: DULoxetine HCL 30 MG CAPSULE.SA PO SCH (08:31)
[2018-12-28] MEDS: LOSARTAN POTASSIUM 50 MG TABLET PO SCH (08:31)
[2018-12-28] MEDS: GABAPENTIN 400 MG CAPSULE PO SCH (08:31)
[2018-12-28] MEDS: MIRABEGRON 25 MG TAB.PO.ER PO SCH (08:31)
[2018-12-28] MEDS: LORazepam 1 MG TABLET PO SCH (08:32)
[2018-12-28] MEDS: CHOLECALCIFEROL 1,000 UNIT CAPSULE PO SCH (08:32)
[2018-12-28] MEDS: SACCHAROMYCES BOULARDII 250 MG CAPSULE PO SCH (08:32)
[2018-12-28] MEDS: FAMOTIDINE 20 MG TABLET PO SCH (08:32)
[2018-12-28] MEDS: MAGNESIUM OXIDE 400 MG TABLET PO SCH (08:32)
[2018-12-28] MEDS ORDERED: FUROSEMIDE 40 MG TABLET PO SCH (09:00)
[2018-12-28 10:28] VITALS: BP 156/71
== END 2018-12-28 10:49 | DRG 178 ==
LOC: ER 18:09 → MS 20:29
PROVIDERS: ADMIT Internal Medicine; ATTEND Internal Medicine
DX: W19.XXXA Unspecified fall, initial encounter; F41.8 Other specified anxiety disorders; R73.9 Hyperglycemia, unspecified; D72.829 Elevated white blood cell count, unspecified; R06.03 Acute respiratory distress; G24.01 Drug induced subacute dyskinesia; I11.0 Hypertensive heart disease with heart failure; I50.9 Heart failure, unspecified; J44.1 Chronic obstructive pulmonary disease with (acute) exacerbation; K21.9 Gastro-esophageal reflux disease without esophagitis; J69.0 Pneumonitis due to inhalation of food and vomit; E87.2 Acidosis
CPT/HCPCS: 36415; 36416; 70450; 71010; 71020; 71045; 71046; 72110; 80048; 80053; 81001; 82803; 83605; 83735; 84484; 85007; 85025; 85379; 85610; 85652; 85730; 86140; 87040; 92526; 92610; 93005; 94640; 94664; 96361; 96365; 97110; 97116; 97161; 99291